=== PATIENT | male | born 1980 | race Caucasian/White ===

== ENCOUNTER 2021-05-09 03:51 | Emergency (ER) | payer OTHER ==
[2021-05-09 04:05] VITALS: BP 162/115; PULSE 70; RESP 20; TEMP 97.9
[2021-05-09] MEDS ORDERED: MORPHINE SULFATE 4 MG/ML SYRINGE IM STA (04:13)
[2021-05-09 04:55] LABS: Basophils % (A) 1 %; Eosinophils # (A) 0.2 k/uL (0-0.7); Eosinophils % (A) 3 %; HCT 39.5 % (39.0-53.0); Lymphocytes # (A) 1.7 k/uL (1.0-4.8); Lymphocytes % (A) 24 %; MCH 28.7 pg (25.0-35.0); MCV 86.9 fL (80.0-100.0); Mean Platelet Volume 6.9; Monocytes # (A) 0.4 k/uL (0-1.0); Monocytes % (A) 5 %; Neutrophils # (A) 4.9 k/uL (1.3-7.7); Neutrophils % (A) 66 %; Platelet Count 352 k/uL (150-450); RBC 4.55 m/uL (4.30-5.90); RDW 14.1 % (11.5-15.5); WBC 7.4 k/uL (3.8-10.6)
[2021-05-09 05:10] LABS: ALT 18 U/L (4-49); AST 33 U/L (17-59); African American GFR (CKD) >90 (>60 ml/min/1.73 sqM); Albumin 4.7 g/dL (3.5-5.0); Alkaline Phosphatase 113 U/L (38-126); Anion Gap 14 mmol/L; Blood Urea Nitrogen 11 mg/dL (9-20); Carbon Dioxide 24 mmol/L (22-30); Chloride 101 mmol/L (98-107); Glucose 139 mg/dL (74-99); Non-African American GFR(CKD) 82 (>60 ml/min/1.73 sqM); Potassium 3.9 mmol/L (3.5-5.1); Sodium 139 mmol/L (137-145); Total Bilirubin 0.5 mg/dL (0.2-1.3); Total Protein 8.1 g/dL (6.3-8.2)
[2021-05-09 05:13] LABS: Appearance,Urine Clear (Clear); Bilirubin,Urine Negative (Negative); Blood,Urine Negative (Negative); Color,Urine Yellow; Glucose,Urine (UA) Negative (Negative); Ketones,Urine Negative (Negative); Leukocyte Esterase,Urine Negative (Negative); Nitrite,Urine Negative (Negative); Protein,Urine Negative (Negative); Specific Gravity,Urine 1.016 (1.001-1.035); Urobilinogen,Urine <2.0 mg/dL (<2.0)
--- NOTE | 2021-05-09 05:13 | CT ---
EXAMINATION TYPE: CT abdomen pelvis wo con DATE OF EXAM: 05/09/2021 COMPARISON: None HISTORY: Abd Pain CT DLP: 922.7 mGycm Automated exposure control for dose reduction was used. Images obtained from the diaphragm to the floor the pelvis with no contrast. The lung bases are clear of consolidation. There is no pleural effusion. Heart is borderline enlarged . There is no pericardial effusion. There is previous gastric bariatric surgery. There is previous cholecystectomy. Liver and spleen are intact. The bile ducts are not dilated. There is no pancreatic mass. There is no adrenal mass. Kidney s show normal size and contour. There is no hydronephrosis. Ureters are not dilated. Bladder distends smoothly. There is no inguinal hernia. There is no free fluid in the pelvis. There is no mesenteric edema. There is no ascites or free air. There is no bowel obstruction. There i s apparent clips from previous appendectomy. The lumbar vertebrae have normal alignment. Posterior elements are intact. Disc spaces are normal. Rafi ny pelvis is intact. The hip joints are intact. IMPRESSION: No acute abnormality of the abdomen and pelvis. No evidence of intestinal hernia. Previous bariatric surgery.
--- NOTE | 2021-05-09 06:33 | ED ---
General Adult HPI - General Chief complaint: Chest Pain Stated complaint: Epigastric/Chest Pain Time Seen by Provider: 05/09/21 06:26 Source: patient, police, RN notes reviewed Mode of arrival: ambulatory - History of Present Illness Initial comments: Patient is a 41-year-old male that presents to the emergency department complaining of epigastric type pain. He notes he does have a history of bariatric surgery in [facility]. Patient does have a history of a Yolanda-en-Y surgery. He notes that last time he had this type of pain here having a hernia and had that surgery. Patient became concerned when he had sharp abdominal pain this evening that woke him up from sleep. Patient notes that he is in moderate amounts of pain and wants us to contact his bariatric surgeon. Patient was otherwise well-appearing in no apparent distress. Patient denied any chest pain shortness of breath headache nausea vomiting diarrhea constipation fever fatigue chills. - Related Data Allergies Allergy/AdvReac Type Severity Reaction Status Date / Time No Known Allergies Allergy Verified 05/09/21 03:58 Review of Systems ROS Statement: Those systems with pertinent positive or pertinent negative responses have been documented in the HPI. ROS Other: All systems not noted in ROS Statement are negative. Past Medical History History of Any Multi-Drug Resistant Organisms: None Reported Past Surgical History: Bariatric Surgery, Hernia Repair Past Psychological History: PTSD Smoking Status: Former smoker Past Alcohol Use History: Occasional Past Drug Use History: None Reported General Exam General appearance: alert, in no apparent distress Head exam: Present: atraumatic, normocephalic, normal inspection Eye exam: Present: normal appearance, PERRL, EOMI. Absent: scleral icterus, conjunctival injection, periorbital swelling ENT exam: Present: normal exam, mucous membranes moist Neck exam: Present: normal inspection Respiratory exam: Present: normal lung sounds bilaterally. Absent: respiratory distress, wheezes, rales, rhonchi, stridor Cardiovascular Exam: Present: regular rate, normal rhythm, normal heart sounds. Absent: systolic murmur, diastolic murmur, rubs, gallop, clicks GI/Abdominal exam: Present: soft, tenderness (Epigastric region), normal bowel sounds. Absent: distended, guarding, rebound, rigid Extremities exam: Present: normal inspection, full ROM, normal capillary refill. Absent: tenderness, pedal edema, joint swelling, calf tenderness Neurological exam: Present: alert, oriented X3 Psychiatric exam: Present: normal affect, normal mood Skin exam: Present: warm, dry, intact, normal color. Absent: rash Course Vital Signs 05/09/21 03:58 Temperature 97.9 F Pulse Rate 70 Respiratory 20 Rate Blood Pressure 162/115 O2 Sat by Pulse 98 Oximetry Medical Decision Making - Medical Decision Making 41-year-old male complaining of epigastric pain. Labs, EKG, 4 mg of morphine, CT of the abdomen and pelvis ordered. Labs: Grossly unremarkable mildly elevated lactic acid 2.5. CT of the abdomen and pelvis is negative for any acute abdominal process. No hernias. EKG is within normal limits. Patient was informed of results and was instructed use second here follow-up with facility medical staff. Case discussed with Dr. Aly. - Lab Data Result diagrams: 05/09/21 04:15 05/09/21 04:16 Lab Results 05/09/21 05/09/21 05/09/21 Range/Units 04:15 04:16 04:16 WBC 7.4 (3.8-10.6) k/uL RBC 4.55 (4.30-5.90) m/uL Hgb 13.0 (13.0-17.5) gm/dL Hct 39.5 (39.0-53.0) % MCV 86.9 (80.0-100.0) fL MCH 28.7 (25.0-35.0) pg MCHC 33.0 (31.0-37.0) g/dL RDW 14.1 (11.5-15.5) % Plt Count 352 (150-450) k/uL MPV 6.9 Neutrophils % 66 % Lymphocytes % 24 % Monocytes % 5 % Eosinophils % 3 % Basophils % 1 % Neutrophils # 4.9 (1.3-7.7) k/uL Lymphocytes # 1.7 (1.0-4.8) k/uL Monocytes # 0.4 (0-1.0) k/uL Eosinophils # 0.2 (0-0.7) k/uL Basophils # 0.0 (0-0.2) k/uL Sodium 139 (137-145) mmol/L Potassium 3.9 (3.5-5.1) mmol/L Chloride 101 (98-107) mmol/L Carbon Dioxide 24 (22-30) mmol/L Anion Gap 14 mmol/L BUN 11 (9-20) mg/dL Creatinine 1.12 (0.66-1.25) mg/dL Est GFR (CKD-EPI)AfAm >90 (>60 ml/min/1.73 sqM) Est GFR (CKD-EPI)NonAf 82 (>60 ml/min/1.73 sqM) Glucose 139 H (74-99) mg/dL Plasma Lactic Acid Rinku (0.7-2.0) mmol/L Calcium 10.0 (8.4-10.2) mg/dL Total Bilirubin 0.5 (0.2-1.3) mg/dL AST 33 (17-59) U/L ALT 18 (4-49) U/L Alkaline Phosphatase 113 (38-126) U/L Troponin I (0.000-0.034) ng/mL Total Protein 8.1 (6.3-8.2) g/dL Albumin 4.7 (3.5-5.0) g/dL Urine Color Yellow Urine Appearance Clear (Clear) Urine pH 6.0 (5.0-8.0) Ur Specific [place] 1.016 (1.001-1.035) Urine Protein Negative (Negative) Urine Glucose (UA) Negative (Negative) Urine Ketones Negative (Negative) Urine Blood Negative (Negative) Urine Nitrite Negative (Negative) Urine Bilirubin Negative (Negative) Urine Urobilinogen <2.0 (<2.0) mg/dL Ur Leukocyte Esterase Negative (Negative) 05/09/21 05/09/21 Range/Units 04:16 04:16 WBC (3.8-10.6) k/uL RBC (4.30-5.90) m/uL Hgb (13.0-17.5) gm/dL Hct (39.0-53.0) % MCV (80.0-100.0) fL MCH (25.0-35.0) pg MCHC (31.0-37.0) g/dL RDW (11.5-15.5) % Plt Count (150-450) k/uL MPV Neutrophils % % Lymphocytes % % Monocytes % % Eosinophils % % Basophils % % Neutrophils # (1.3-7.7) k/uL Lymphocytes # (1.0-4.8) k/uL Monocytes # (0-1.0) k/uL Eosinophils # (0-0.7) k/uL Basophils # (0-0.2) k/uL Sodium (137-145) mmol/L Potassium (3.5-5.1) mmol/L Chloride (98-107) mmol/L Carbon Dioxide (22-30) mmol/L Anion Gap mmol/L BUN (9-20) mg/dL Creatinine (0.66-1.25) mg/dL Est GFR (CKD-EPI)AfAm (>60 ml/min/1.73 sqM) Est GFR (CKD-EPI)NonAf (>60 ml/min/1.73 sqM) Glucose (74-99) mg/dL Plasma Lactic Acid Rinku 2.5 H* (0.7-2.0) mmol/L Calcium (8.4-10.2) mg/dL Total Bilirubin (0.2-1.3) mg/dL AST (17-59) U/L ALT (4-49) U/L Alkaline Phosphatase (38-126) U/L Troponin I <0.012 (0.000-0.034) ng/mL Total Protein (6.3-8.2) g/dL Albumin (3.5-5.0) g/dL Urine Color Urine Appearance (Clear) Urine pH (5.0-8.0) Ur Specific [place] (1.001-1.035) Urine Protein (Negative) Urine Glucose (UA) (Negative) Urine Ketones (Negative) Urine Blood (Negative) Urine Nitrite (Negative) Urine Bilirubin (Negative) Urine Urobilinogen (<2.0) mg/dL Ur Leukocyte Esterase (Negative) - EKG Data -: EKG Interpreted by Ak EKG shows normal: sinus rhythm Rate: normal EKG Comments: Ventricular rate 71 bpm, MS interval 142 ms, QRS duration 90 ms, QTC 436 ms, normal sinus rhythm normal ECG. - Radiology Data Radiology results: report reviewed, image reviewed CT abdomen and pelvis: No acute abnormality of the abdomen and pelvis. No evidence of intestinal hernia. Previous bariatric surgery. Disposition Clinical Impression: Epigastric abdominal pain Disposition: HOME SELF-CARE Condition: Stable Instructions (If sedation given, give patient instructions): Abdominal Pain (ED) Additional Instructions: Please return to the Emergency Department if symptoms worsen or any other concerns. Follow-up with facility medical staff as needed. Try a course of [id number] Grill medication. Is patient prescribed a controlled substance at d/c from ED?: No Referrals: None,Stated [Primary Care Provider] - 1-2 days Time of Disposition: 06:32
[2021-05-09] MEDS ORDERED: PANTOPRAZOLE 40 MG/10 ML VIAL IVP STA (06:46)
== END 2021-05-09 06:56 | disposition home or self-care (01) ==
LOC: EC 03:51
DX: R10.13 Epigastric pain (principal); Z87.891 Personal history of nicotine dependence
CPT/HCPCS: 36415; 93005; 80053; 83605; 84484; 85025; 81003; 74176; 99284; 96374; 96372; J2270; C9113

== ENCOUNTER 2021-05-10 10:32 | Inpatient (IN) | payer OTHER ==
[2021-05-10 10:59] LABS: Glucose,Whole Blood 164 mg/dL (75-99)
--- NOTE | 2021-05-10 11:28 | ED ---
General Adult HPI - General Chief complaint: Abdominal Pain Stated complaint: abdominal pain Time Seen by Provider: 05/10/21 11:08 Source: patient, EMS, RN notes reviewed Mode of arrival: EMS Limitations: no limitations - History of Present Illness Initial comments: 41-year-old incarcerated male presents to the emergency department via EMS for evaluation of generalized abdominal pain and frequent vomiting. Patient was seen at this facility yesterday for the same complaint. States he has a history of a Yolanda-en-Y and has had similar pain in the past with a bowel obstruction. Patient states he has had multiple episodes of vomiting daily for the past 2 days regardless of oral intake. States he had a soft formed bowel movement 2 days ago, but none yesterday or today. States his symptoms were also accompanied by shortness of breath, but he attributes this to pain. Denies fever, chills, chest pain, back pain, constipation, diarrhea, dysuria, or hematuria - Related Data Home Medications Medication Instructions Recorded Confirmed Acetaminophen [Tylenol] 650 mg PO BID PRN 05/10/21 05/10/21 Mag Hydrox/Al Hydrox/Simeth 15 ml PO TID PRN 05/10/21 05/10/21 [Maalox] Meloxicam [Mobic] 15 mg PO HS 05/10/21 05/10/21 Ondansetron HCl [Zofran] 4 mg PO Q8H PRN 05/10/21 05/10/21 Sertraline [Zoloft] 100 mg PO DAILY 05/10/21 05/10/21 Sucralfate [Carafate] 1 gm PO AC-TID 05/10/21 05/10/21 cloNIDine HCL [Catapres] 0.2 mg PO BID 05/10/21 05/10/21 hydrOXYzine pamoate [Vistaril] 50 mg PO BID 05/10/21 05/10/21 hydroCHLOROthiazide 50 mg PO HS 05/10/21 05/10/21 traZODone HCL [Desyrel] 100 mg PO HS 05/10/21 05/10/21 Previous Rx's Medication Instructions Recorded Famotidine [Pepcid] 20 mg PO BID #28 tablet 05/09/21 Allergies Allergy/AdvReac Type Severity Reaction Status Date / Time No Known Allergies Allergy Verified 05/10/21 12:09 Review of Systems ROS Statement: Those systems with pertinent positive or pertinent negative responses have been documented in the HPI. ROS Other: All systems not noted in ROS Statement are negative. Past Medical History Past Medical History: Hypertension History of Any Multi-Drug Resistant Organisms: None Reported Past Surgical History: Bariatric Surgery, Hernia Repair Past Psychological History: PTSD Smoking Status: Former smoker Past Alcohol Use History: Occasional Past Drug Use History: None Reported General Exam Limitations: no limitations General appearance: alert, other (Well-developed, well-nourished male appears moderately uncomfortable. Initial temperature 97.3, recheck 97.5, pulse 61, respirations 18, blood pressure 123/78, pulse ox 97% on room air.) ENT exam: Present: mucous membranes dry Respiratory exam: Present: normal lung sounds bilaterally, other (Shallow respirations). Absent: respiratory distress, wheezes, rales, rhonchi, stridor, chest wall tenderness Cardiovascular Exam: Present: normal rhythm, tachycardia, normal heart sounds GI/Abdominal exam: Present: soft, tenderness (Diffuse abdominal tenderness upon palpation), guarding, normal bowel sounds Neurological exam: Present: alert, oriented X3 Psychiatric exam: Present: anxious, flat affect Skin exam: Present: warm, dry, intact, pallor Course Vital Signs 05/10/21 05/10/21 05/10/21 10:41 13:15 14:27 Temperature 97.3 F L Pulse Rate 61 105 H 111 H Respiratory 18 20 20 Rate Blood Pressure 123/78 105/72 90/70 O2 Sat by Pulse 97 95 97 Oximetry 05/10/21 05/10/21 14:51 16:02 Temperature Pulse Rate 110 H 112 H Respiratory 24 28 H Rate Blood Pressure 112/90 122/89 O2 Sat by Pulse 98 96 Oximetry - Reevaluation(s) Reevaluation #1: 05/10/21 12:[address] Covington about this patient's physical exam findings and lab studies. He will further collaborate in this patient's care. 05/10/21 13:[address] Whitaker, radiology, who is willing to review previous CT findings. Expresses concern for pancreatic biliary obstruction secondary to internal hernia. 05/10/21 13:25: Spoke with Dr. Olivo- this patient requires higher level of care therefore must be transferred. 05/10/21 13:34 Spoke with [facility]; they declined at 1350 05/10/21 14:00 Spoke with [facility] transfer center; they declined at 1436 05/10/21 14:48 [facility] [place]. 05/10/21 14:55 Soke with [facility] system transfer center; they decline due to capacity. 05/10/21 15:[address] results discussed with Dr. Olivo; he is willing to see this patient. 05/10/21 15:35 Vital signs stable. Physical exam findings are unchanged; mild to moderate discomfort at this time. Medical Decision Making - Medical Decision Making 41-year-old male with a past medical history of a Yolanda-en-Y and hypertension presents to the emergency department for a second visit within 24 hours with complaint of diffuse abdominal pain. Upon presentation, patient is ill- appearing. He is pale and cool to touch with diffuse abdominal pain. He is afebrile but tachycardic. Laboratory studies were obtained showing a marked difference between yesterday and today. Currently, patient has a widening anion gap, ANGIE (BUN 24, creatinine 2.66), lactic acidosis(lactic 12.3), elevated troponin (0.108), amylase 861, and lipase 5342. CT of the abdomen and pelvis without contrast showed probable bowel perforation and obstruction. Patient was given a total of 3 L of IV fluids with additional maintenance fluids, Zosyn IV piggyback, along with pain medication and antinausea medicine. Several attempts were made to transfer this patient with no receiving facility. Vital signs remained stable. Dr. Olivo is willing to see this patient. This patient was cared for in collaboration with my attending Dr. Covington. - Lab Data Result diagrams: 05/10/21 11:41 05/10/21 11:41 Lab Results 05/10/21 05/10/21 05/10/21 Range/Units 10:56 11:41 11:41 WBC 4.0 (3.8-10.6) k/uL RBC 6.24 H (4.30-5.90) m/uL Hgb 18.3 H D (13.0-17.5) gm/dL Hct 55.5 H (39.0-53.0) % MCV 89.0 (80.0-100.0) fL MCH 29.4 (25.0-35.0) pg MCHC 33.0 (31.0-37.0) g/dL RDW 14.2 (11.5-15.5) % Plt Count 481 H (150-450) k/uL MPV 7.5 Neutrophils % (Manual) 54 % Band Neuts % (Manual) 17 % Lymphocytes % (Manual) 21 % Monocytes % (Manual) 6 % Metamyelocytes % 4 % Neutrophils # (Manual) 2.80 (1.3-7.7) k/uL Lymphocytes # (Manual) 0.84 L (1.0-4.8) k/uL Monocytes # (Manual) 0.24 (0-1.0) k/uL Metamyelocytes # (Man) 0.16 H (0) k/uL Nucleated RBCs 0 (0-0) /100 WBC Manual Slide Review Performed RBC Morphology Normal PT (9.0-12.0) sec INR (<1.2) APTT (22.0-30.0) sec Sodium 140 (137-145) mmol/L Potassium 3.6 (3.5-5.1) mmol/L Chloride 95 L (98-107) mmol/L Carbon Dioxide 20 L (22-30) mmol/L Anion Gap 25 mmol/L BUN 24 H (9-20) mg/dL Creatinine 2.66 H (0.66-1.25) mg/dL Est GFR (CKD-EPI)AfAm 33 (>60 ml/min/1.73 sqM) Est GFR (CKD-EPI)NonAf 29 (>60 ml/min/1.73 sqM) Glucose 178 H (74-99) mg/dL POC Glucose (mg/dL) 164 H (75-99) mg/dL POC Glu [employer] Justice ID [place] Lactic Ac Sepsis Rflx Plasma Lactic Acid Rinku (0.7-2.0) mmol/L Calcium 10.4 H (8.4-10.2) mg/dL Total Bilirubin 1.3 (0.2-1.3) mg/dL AST 73 H (17-59) U/L ALT 46 (4-49) U/L Alkaline Phosphatase 97 (38-126) U/L Troponin I (0.000-0.034) ng/mL Total Protein 7.7 (6.3-8.2) g/dL Albumin 4.5 (3.5-5.0) g/dL Amylase 861 H* (30-110) U/L Lipase 5342 H (23-300) U/L Coronavirus (PCR) (Not Detectd) 05/10/21 05/10/21 05/10/21 Range/Units 11:41 11:41 11:41 WBC (3.8-10.6) k/uL RBC (4.30-5.90) m/uL Hgb (13.0-17.5) gm/dL Hct (39.0-53.0) % MCV (80.0-100.0) fL MCH (25.0-35.0) pg MCHC (31.0-37.0) g/dL RDW (11.5-15.5) % Plt Count (150-450) k/uL MPV Neutrophils % (Manual) % Band Neuts % (Manual) % Lymphocytes % (Manual) % Monocytes % (Manual) % Metamyelocytes % % Neutrophils # (Manual) (1.3-7.7) k/uL Lymphocytes # (Manual) (1.0-4.8) k/uL Monocytes # (Manual) (0-1.0) k/uL Metamyelocytes # (Man) (0) k/uL Nucleated RBCs (0-0) /100 WBC Manual Slide Review RBC Morphology PT 11.1 (9.0-12.0) sec INR 1.0 (<1.2) APTT 23.1 (22.0-30.0) sec Sodium (137-145) mmol/L Potassium (3.5-5.1) mmol/L Chloride (98-107) mmol/L Carbon Dioxide (22-30) mmol/L Anion Gap mmol/L BUN (9-20) mg/dL Creatinine (0.66-1.25) mg/dL Est GFR (CKD-EPI)AfAm (>60 ml/min/1.73 sqM) Est GFR (CKD-EPI)NonAf (>60 ml/min/1.73 sqM) Glucose (74-99) mg/dL POC Glucose (mg/dL) (75-99) mg/dL POC Glu Trial [facility] Justice ID Lactic Ac Sepsis Rflx Plasma Lactic Acid Rinku 12.3 H* (0.7-2.0) mmol/L Calcium (8.4-10.2) mg/dL Total Bilirubin (0.2-1.3) mg/dL AST (17-59) U/L ALT (4-49) U/L Alkaline Phosphatase (38-126) U/L Troponin I 0.108 H* (0.000-0.034) ng/mL Total Protein (6.3-8.2) g/dL Albumin (3.5-5.0) g/dL Amylase (30-110) U/L Lipase (23-300) U/L Coronavirus (PCR) (Not Detectd) 05/10/21 05/10/21 Range/Units 11:41 13:47 WBC (3.8-10.6) k/uL RBC (4.30-5.90) m/uL Hgb (13.0-17.5) gm/dL Hct (39.0-53.0) % MCV (80.0-100.0) fL MCH (25.0-35.0) pg MCHC (31.0-37.0) g/dL RDW (11.5-15.5) % Plt Count (150-450) k/uL MPV Neutrophils % (Manual) % Band Neuts % (Manual) % Lymphocytes % (Manual) % Monocytes % (Manual) % Metamyelocytes % % Neutrophils # (Manual) (1.3-7.7) k/uL Lymphocytes # (Manual) (1.0-4.8) k/uL Monocytes # (Manual) (0-1.0) k/uL Metamyelocytes # (Man) (0) k/uL Nucleated RBCs (0-0) /100 WBC Manual Slide Review RBC Morphology PT (9.0-12.0) sec INR (<1.2) APTT (22.0-30.0) sec Sodium (137-145) mmol/L Potassium (3.5-5.1) mmol/L Chloride (98-107) mmol/L Carbon Dioxide (22-30) mmol/L Anion Gap mmol/L BUN (9-20) mg/dL Creatinine (0.66-1.25) mg/dL Est GFR (CKD-EPI)AfAm (>60 ml/min/1.73 sqM) Est GFR (CKD-EPI)NonAf (>60 ml/min/1.73 sqM) Glucose (74-99) mg/dL POC Glucose (mg/dL) (75-99) mg/dL POC Glu Trial [facility] Justice ID Lactic Ac Sepsis Rflx Y Plasma Lactic Acid Rinku (0.7-2.0) mmol/L Calcium (8.4-10.2) mg/dL Total Bilirubin (0.2-1.3) mg/dL AST (17-59) U/L ALT (4-49) U/L Alkaline Phosphatase (38-126) U/L Troponin I (0.000-0.034) ng/mL Total Protein (6.3-8.2) g/dL Albumin (3.5-5.0) g/dL Amylase (30-110) U/L Lipase (23-300) U/L Coronavirus (PCR) Not Detected (Not Detectd) - EKG Data EKG shows normal: sinus rhythm Rate: tachycardia EKG Comments: Chest x-ray was obtained at 1057 and shows sinus tachycardia and possible left atrial enlargement. Ventricular rate 129, SD interval 126, QRS duration, QT/QTC 310/454. Interpretation borderline ECG. - Radiology Data Radiology results: report reviewed, image reviewed Two-view chest x-ray was obtained. Report was reviewed in its entirety. Impression per Dr. Mora shows low lung volumes with left greater than right; bilateral linear scarring and/or atelectasis. KUB x-ray was obtained. Report was reviewed in its entirety. Impression per Dr. Mora is overall nonspecific, but favor nonobstructive bowel gas pattern. Surgical changes to follow redemonstrated. New small to tiny left pleural effusion noted. CT of the abdomen and pelvis without contrast was obtained due to patient's decreased GFR. Report was reviewed and is entirety. Impression per Dr. Hays is pneumoperitoneum, interval development of free fluid within the abdomen consistent with probable bowel perforation and obstruction. Disposition Clinical Impression: Perforated bowel, Lactic acidosis, Acute kidney injury, Bowel obstruction Disposition: ADMITTED IP TO THIS HOSP Condition: Serious Decision Date: 05/10/21 Decision Time: 15:59
[2021-05-10] MEDS ORDERED: SODIUM CHLORIDE 0.9% 1,000 ML IV STA ×4 (11:37→16:06)
[2021-05-10] MEDS ORDERED: ONDANSETRON 4 MG/2 ML VIAL IVP STA ×2 (11:37→16:05)
[2021-05-10] MEDS ORDERED: MORPHINE SULFATE 4 MG/ML SYRINGE IV STA (11:37)
--- NOTE | 2021-05-10 12:10 | XR ---
EXAMINATION TYPE: XR chest 2V DATE OF EXAM: 05/10/2021 COMPARISON: NONE HISTORY: Shortness of breath. TECHNIQUE: Frontal and lateral views of the chest are obtained. FINDINGS: Low lung volumes with left greater than right bibasilar linear scarring and/or atelectasis . No pleural effusion or pneumothorax seen bilaterally. The cardiac silhouette size is difficult to assess likely upper limits of normal. The osseous structures are intact. IMPRESSION: Low lung volumes with left greater than right bilateral linear scarring and/or atelectas is.
--- NOTE | 2021-05-10 12:13 | XR ---
EXAMINATION TYPE: XR KUB DATE OF EXAM: 05/10/2021 11:59 AM CLINICAL HISTORY: Pain after injury. TECHNIQUE: Two Upright KUB images of the abdomen are obtained. COMPARISON: CT abdomen and pelvis from yesterday. FINDINGS: Scattered gas is seen in non-distended small bowel loops. Gas and fecal material is seen in non-distended colon. A few scattered air-fluid levels redemonstrated, nonspecific finding greatest i n the lower abdomen . Mild to moderate diffuse colonic fecal prominence redemonstrated. Cholecystecto my clips are redemonstrated. Surgical sutures at the gastric region extending into left midabdomen ag ain seen. Multiple tiny left pleural effusion on current study now present with associated atelectasi s and/or developing infiltrate. No free air. Osseous structures are intact. IMPRESSION: Overall nonspecific but favor nonobstructive bowel gas pattern. Surgical changes to bowel redemonstra jerri. New small to tiny left pleural effusion noted.
[2021-05-10 12:17] LABS: MCH 29.4 pg (25.0-35.0); Mean Platelet Volume 7.5; Platelet Count 481 k/uL (150-450); RBC 6.24 m/uL (4.30-5.90); RDW 14.2 % (11.5-15.5)
[2021-05-10 12:18] LABS: HCT 55.5 % (39.0-53.0)
[2021-05-10 12:19] LABS: HGB 18.3 gm/dL (13.0-17.5)
[2021-05-10 12:25] LABS: Partial Thromboplastin Time 23.1 sec (22.0-30.0); Prothrombin Time 11.1 sec (9.0-12.0)
[2021-05-10 12:34] LABS: Albumin 4.5 g/dL (3.5-5.0); Calcium 10.4 mg/dL (8.4-10.2); Potassium 3.6 mmol/L (3.5-5.1); Total Bilirubin 1.3 mg/dL (0.2-1.3); Total Protein 7.7 g/dL (6.3-8.2)
[2021-05-10 13:06] LABS: Band Neutrophils % 17 %; Lymphocytes # (M) 0.84 k/uL (1.0-4.8); Metamyelocytes # (M) 0.16 k/uL (0); Metamyelocytes % 4 %; Monocytes # (M) 0.24 k/uL (0-1.0); Neutrophils % (M) 54 %; Nucleated Red Blood Cells 0 /100 WBC (0-0); Total Cells Counted 200
[2021-05-10] MEDS ORDERED: PIPERACILLIN-TAZOBACTAM 3.375 GM in SODIUM CHLORIDE 0.9% 100 ML IVPB STA (13:18)
[2021-05-10] MEDS ORDERED: MORPHINE SULFATE 2 MG/ML SYRINGE IVP ONE (13:30)
--- NOTE | 2021-05-10 15:08 | CT ---
EXAMINATION TYPE: CT abdomen pelvis wo con DATE OF EXAM: 05/10/2021 COMPARISON: CT 05/09/2021 HISTORY: Mid abdominal pain. CT DLP: 1052.4 mGycm Automated exposure control for dose reduction was used. TECHNIQUE: Helical acquisition of images from the lung bases through the pelvis. FINDINGS: Lack of contrast could compromise sensitivity. There has been interval development of pneumoperitoneum. LUNG BASES: There is some basilar atelectatic change at the posterior lung bases, minimal pleural eff usion may be present on the right. AORTA: No significant abnormality is appreciataed. LIVER/GB: No significant abnormality is appreciated. PANCREAS: No significant abnormality is seen. SPLEEN: No significant abnormality is seen. ADRENALS: No significant abnormality is seen. KIDNEYS: No significant abnormality is seen. REPRODUCTIVE ORGANS: No significant abnormality is seen. URINARY BLADDER: No significant abnormality is seen. BOWEL: There is interval increase in distention of the duodenum and excluded stomach with fluid atte nuation present. Inflammatory changes are present within the mesenteric fat. The redundant course of small bowel loops in the left upper quadrant is again noted, patient is post gastric bypass with Yolanda -en-Y. FREE AIR: Present and developed in the interval. ASCITES: Ascites has developed in the interval. PELVIC ADENOPATHY: None visualized. RETROPERITONEAL ADENOPATHY: No Retroperitoneal Adenopathy visible. OSSEOUS STRUCTURES: No significant abnormality is seen. IMPRESSION: PNEUMOPERITONEUM, INTERVAL DEVELOPMENT OF FREE FLUID WITHIN THE ABDOMEN CONSISTENT WITH PROBABLE ARCADIO L PERFORATION AND OBSTRUCTION PREVIOUSLY REPORTED, REPORT RELAYED TO DR. MCGRATH AT THE TIME OF IN TERPRETATION BY PHONE.
[2021-05-10] MEDS ORDERED: NALOXONE 0.4 MG/ML 1 ML VIAL IV PRN ×2 (16:00→18:38)
[2021-05-10] MEDS: MORPHINE SULFATE 2 MG/ML SYRINGE IV PRN ×3 (16:25→23:53)
--- NOTE | 2021-05-10 16:46 | P.GSHP ---
History of Present Illness H&P Date: 05/10/21 Chief Complaint: Severe abdominal pain Is a 41-year-old male who has a several day history of severe abdominal pain. Patient states he was seen in the emergency room yesterday for similar complaints of abdominal pain. He states that he has a previous history of gastric bypass and had a similar complaints of pain when he had an internal hernia. Patient was seen in the emergency room yesterday by the emergency room physician. He was [facility] to [facility] living yesterday. Patient had increased pain he presented back to the emergency room today. Patient had repeat CAT scan shows evidence of bowel perforation and possible internal hernia. Past Medical History Past Medical History: Hypertension History of Any Multi-Drug Resistant Organisms: None Reported Past Surgical History: Bariatric Surgery, Hernia Repair Past Psychological History: PTSD Smoking Status: Former smoker Past Alcohol Use History: Occasional Past Drug Use History: None Reported Medications and Allergies Home Medications Medication Instructions Recorded Confirmed Type Famotidine [Pepcid] 20 mg PO BID #28 tablet 05/09/21 05/10/21 Rx Acetaminophen [Tylenol] 650 mg PO BID PRN 05/10/21 05/10/21 History Mag Hydrox/Al Hydrox/Simeth 15 ml PO TID PRN 05/10/21 05/10/21 History [Maalox] Meloxicam [Mobic] 15 mg PO HS 05/10/21 05/10/21 History Ondansetron HCl [Zofran] 4 mg PO Q8H PRN 05/10/21 05/10/21 History Sertraline [Zoloft] 100 mg PO DAILY 05/10/21 05/10/21 History Sucralfate [Carafate] 1 gm PO AC-TID 05/10/21 05/10/21 History cloNIDine HCL [Catapres] 0.2 mg PO BID 05/10/21 05/10/21 History hydrOXYzine pamoate [Vistaril] 50 mg PO BID 05/10/21 05/10/21 History hydroCHLOROthiazide 50 mg PO HS 05/10/21 05/10/21 History traZODone HCL [Desyrel] 100 mg PO HS 05/10/21 05/10/21 History Allergies Allergy/AdvReac Type Severity Reaction Status Date / Time No Known Allergies Allergy Verified 05/10/21 12:09 Surgical - Exam Vital Signs Temp Pulse Resp BP Pulse Ox 97.3 F L 61 18 123/78 97 05/10/21 10:41 05/10/21 10:41 05/10/21 10:41 05/10/21 10:41 05/10/21 10:41 - General well developed, well nourished, moderate distress, severe pain - Eyes PERRL - ENT normal pinna, normal nares - Neck no masses - Respiratory normal expansion - Cardiovascular Rhythm: regular - Abdomen Distended. Diffusely tender throughout. Positive peritoneal signs Results - Labs 05/10/21 11:41 05/10/21 11:41 Abnormal Lab Results - Last 24 Hours (Table) 05/10/21 05/10/21 05/10/21 Range/Units 10:56 11:41 11:41 RBC 6.24 H (4.30-5.90) m/uL Hgb 18.3 H D (13.0-17.5) gm/dL Hct 55.5 H (39.0-53.0) % Plt Count 481 H (150-450) k/uL Lymphocytes # (Manual) 0.84 L (1.0-4.8) k/uL Metamyelocytes # (Man) 0.16 H (0) k/uL Chloride 95 L (98-107) mmol/L Carbon Dioxide 20 L (22-30) mmol/L BUN 24 H (9-20) mg/dL Creatinine 2.66 H (0.66-1.25) mg/dL Glucose 178 H (74-99) mg/dL POC Glucose (mg/dL) 164 H (75-99) mg/dL Plasma Lactic Acid Rinku (0.7-2.0) mmol/L Calcium 10.4 H (8.4-10.2) mg/dL AST 73 H (17-59) U/L Troponin I (0.000-0.034) ng/mL Amylase 861 H* (30-110) U/L Lipase 5342 H (23-300) U/L 05/10/21 05/10/21 05/10/21 Range/Units 11:41 11:41 16:00 RBC (4.30-5.90) m/uL Hgb (13.0-17.5) gm/dL Hct (39.0-53.0) % Plt Count (150-450) k/uL Lymphocytes # (Manual) (1.0-4.8) k/uL Metamyelocytes # (Man) (0) k/uL Chloride (98-107) mmol/L Carbon Dioxide (22-30) mmol/L BUN (9-20) mg/dL Creatinine (0.66-1.25) mg/dL Glucose (74-99) mg/dL POC Glucose (mg/dL) (75-99) mg/dL Plasma Lactic Acid Rinku 12.3 H* 6.1 H* (0.7-2.0) mmol/L Calcium (8.4-10.2) mg/dL AST (17-59) U/L Troponin I 0.108 H* (0.000-0.034) ng/mL Amylase (30-110) U/L Lipase (23-300) U/L Diabetes panel 05/10/21 Range/Units 11:41 Sodium 140 (137-145) mmol/L Potassium 3.6 (3.5-5.1) mmol/L Chloride 95 L (98-107) mmol/L Carbon Dioxide 20 L (22-30) mmol/L BUN 24 H (9-20) mg/dL Creatinine 2.66 H (0.66-1.25) mg/dL Glucose 178 H (74-99) mg/dL Calcium 10.4 H (8.4-10.2) mg/dL AST 73 H (17-59) U/L ALT 46 (4-49) U/L Alkaline Phosphatase 97 (38-126) U/L Total Protein 7.7 (6.3-8.2) g/dL Albumin 4.5 (3.5-5.0) g/dL Calcium panel 05/10/21 Range/Units 11:41 Calcium 10.4 H (8.4-10.2) mg/dL Albumin 4.5 (3.5-5.0) g/dL Pituitary panel 05/10/21 Range/Units 11:41 Sodium 140 (137-145) mmol/L Potassium 3.6 (3.5-5.1) mmol/L Chloride 95 L (98-107) mmol/L Carbon Dioxide 20 L (22-30) mmol/L BUN 24 H (9-20) mg/dL Creatinine 2.66 H (0.66-1.25) mg/dL Glucose 178 H (74-99) mg/dL Calcium 10.4 H (8.4-10.2) mg/dL Adrenal panel 05/10/21 Range/Units 11:41 Sodium 140 (137-145) mmol/L Potassium 3.6 (3.5-5.1) mmol/L Chloride 95 L (98-107) mmol/L Carbon Dioxide 20 L (22-30) mmol/L BUN 24 H (9-20) mg/dL Creatinine 2.66 H (0.66-1.25) mg/dL Glucose 178 H (74-99) mg/dL Calcium 10.4 H (8.4-10.2) mg/dL Total Bilirubin 1.3 (0.2-1.3) mg/dL AST 73 H (17-59) U/L ALT 46 (4-49) U/L Alkaline Phosphatase 97 (38-126) U/L Total Protein 7.7 (6.3-8.2) g/dL Albumin 4.5 (3.5-5.0) g/dL - Imaging CT scan - pelvis: report reviewed (Pneumoperitoneum with free fluid in the peritoneal cavity. Suspicious for bowel perforation) Assessment and Plan Assessment: Acute abdomen with bowel perforation. Patient will undergo exploratory laparotomy urgently.
[2021-05-10] MEDS ORDERED: METHYLENE BLUE 10 MG/ML (10 ML VIAL) ONE (16:56)
[2021-05-10] MEDS ORDERED: ROCURONIUM 10 MG/ML (5 ML VIAL) IV ONE (16:56)
[2021-05-10] MEDS ORDERED: IV FLUID CONTINUATION 1,000 ML IV ONE (16:56)
[2021-05-10] MEDS ORDERED: LIDOCAINE 1% INJ 10MG/ML (20 ML MDV) ONE (16:56)
[2021-05-10] MEDS ORDERED: PROPOFOL 10 MG/ML 20 ML VIAL IV ONE (16:56)
[2021-05-10] MEDS ORDERED: SUCCINYLCHOLINE CHLORIDE 100 MG/5 ML SYR IV ONE (16:56)
[2021-05-10] MEDS ORDERED: fentaNYL (PF) 50 MCG/ML 2 ML AMP ONE (16:56)
[2021-05-10] MEDS ORDERED: PHENYLEPHRINE-0.9% NACL SYG 1,000 MCG/10 ML SYRINGE ONE (16:56)
[2021-05-10] MEDS ORDERED: MIDAZOLAM 2 MG/2 ML VIAL ONE (16:56)
[2021-05-10] MEDS ORDERED: LACTATED RINGERS 1,000 ML IV ONE ×5 (17:05→18:38)
[2021-05-10] MEDS ORDERED: SODIUM CHLORIDE 0.9% 100 ML with ceFAZolin 2,000 MG IV ONE ×2 (17:20)
--- NOTE | 2021-05-10 18:38 | P.OP ---
Date of Procedure: 05/10/21 Preoperative Diagnosis: Internal hernia Perforated viscus Postoperative Diagnosis: Internal hernia with obstruction Necrotic stomach Procedure(s) Performed: Repair of ventral hernia Partial gastrectomy Anesthesia: BARNEY Surgeon: Kaz Olivo Estimated Blood Loss (ml): 50 Pathology: other (Chronic stomach) Condition: critical Disposition: ICU Description of Procedure: The patient's placed on the operative table in the supine position. He received general endotracheal tube anesthesia. His abdomen was prepped and draped usual sterile fashion. The abdomen was entered through a midline incision. Upon entering the abdomen. Cavity there was approximately 1 L of bilious fluid aspirated the patient had a obvious bowel obstruction. The gastric remnant was grossly dilated and there is evidence of necrosis. The small bowel was run. The bowel was dilated all the way down to the level of the distal terminal ileum. There appeared to be an internal hernia at this area due to adhesive band. The adhesive band was lysed and then the bowel was run. There was both dilatation of the ascending and afferent limb of the Yolanda-en-Y gastric bypass. The D5/stomach was grossly dilated. There was necrosis of the proximal the functional stomach. At this point a partial gastrectomy performed. The stomach was dissected. The lesser curvature was dissected and then the stapler was placed across the antrum. The GI staplers and fired. And then using the Enseal device the lesser curvature stomach was divided. And then the defunctionalized stomach which was necrotic was sent to pathology. At this point the [employer] placed an oral gastric tube into the proximal gastric pouch. This was inflated with 250 mL of methylene blue normal saline. There is known to any obstruction. At this point the abdomen was irrigated with 3 L normal saline. A NOAH drain was placed across the gastrectomy site. The fascia was closed with looped #1 PDS suture. The skin was closed with ariel. Several Telfa micheal were placed into the incision. Patient tolerated procedure well. He was in critical condition and was sent back to the ICU on the ventilator.
[2021-05-10] MEDS ORDERED: DEXTROSE 50% SYRINGE 50 ML IVP ONE (19:01)
[2021-05-10 19:03] LABS: Glucose,Whole Blood 56 mg/dL (75-99)
--- NOTE | 2021-05-10 19:39 | XR ---
EXAMINATION TYPE: XR chest 1V portable DATE OF EXAM: 05/10/2021 COMPARISON: 05/10/2021 HISTORY: Short of breath TECHNIQUE: 2 views FINDINGS: There is almost complete opacification left hemithorax. Endotracheal tube is in the right m ainstem bronchus and extending 3.5 cm past the carla. The right lung is clear. There is nasogastric tube in the stomach. IMPRESSION: There is malposition of the endotracheal tube and should be pulled back 7 cm. There is al most complete atelectasis of the left lung which is a change compared to exam earlier today.
[2021-05-10 19:42] LABS: Glucose,Whole Blood 151 mg/dL (75-99)
[2021-05-10] MEDS: FLUCONAZOLE IN NACL,ISO-OSM 400 MG in SALINE 1 200ML.BAG IVPB SCH (19:42)
--- NOTE | 2021-05-10 20:52 | XR ---
EXAMINATION TYPE: XR chest 1V portable DATE OF EXAM: 05/10/2021 COMPARISON: 05/10/2021 HISTORY: Check tube placement TECHNIQUE: FINDINGS: Endotracheal tube is 2 cm from the carla. There is some atelectasis and increased density left lower lobe. Right lung is clear. There are chest leads. There is nasogastric tube in the stomach . IMPRESSION: There is improved aeration of the left lung compared to recent exam. There is persistent left lower lobe atelectasis.
[2021-05-10] MEDS: NOREPINEPHRINE 4 MG in SODIUM CHLORIDE 0.9% 250 ML IV SCH (21:37)
[2021-05-10 21:59] LABS: Glucose,Whole Blood 112 mg/dL (75-99)
[2021-05-10 22:22] LABS: Glucose,Whole Blood 121 mg/dL (75-99)
[2021-05-11 00:04] LABS: Glucose,Whole Blood 87 mg/dL (75-99)
[2021-05-11 01:08] LABS: Glucose,Whole Blood 78 mg/dL (75-99)
[2021-05-11] MEDS ORDERED: DEXTROSE 50% SYRINGE 50 ML IVP ONE (01:08)
[2021-05-11] MEDS ORDERED: DEXTROSE 50% SYRINGE 50 ML IVP STA ×2 (01:16→02:58)
[2021-05-11] MEDS: MORPHINE SULFATE 2 MG/ML SYRINGE IV PRN (01:23)
[2021-05-11 01:47] LABS: Glucose,Whole Blood 104 mg/dL (75-99)
[2021-05-11] MEDS: HYDROmorphone 1 MG/ML 1 ML SYRINGE IVP PRN ×5 (02:24→22:54)
[2021-05-11 02:37] LABS: Glucose,Whole Blood 76 mg/dL (75-99)
[2021-05-11 03:01] LABS: Appearance,Urine Cloudy (Clear); Bacteria,Urine Rare /hpf; Bilirubin,Urine Negative (Negative); Blood,Urine Small (Negative); Cellular Casts,Urine 3 /lpf (0); Color,Urine Light Green; Glucose,Urine (UA) 1+ (Negative); Granular Casts,Urine 13 /lpf (0); Hyaline Casts,Urine 5 /lpf (0-2); Ketones,Urine Negative (Negative); Leukocyte Esterase,Urine Negative (Negative); Mucus,Urine Rare /hpf; Nitrite,Urine Negative (Negative); Protein,Urine 1+ (Negative); RBC,Urine 1 /hpf (0-5); Specific Gravity,Urine 1.027 (1.001-1.035); Squamous Epithelial Cell,Urine 1 /hpf (0-4); WBC,Urine 1 /hpf (0-5)
[2021-05-11 03:02] LABS: Glucose,Whole Blood 152 mg/dL (75-99)
[2021-05-11 04:05] LABS: Glucose,Whole Blood 111 mg/dL (75-99)
[2021-05-11] MEDS: LACTATED RINGERS 1,000 ML IV SCH ×3 (06:00→18:04)
[2021-05-11 06:13] LABS: HCT 48.2 % (39.0-53.0); HGB 15.9 gm/dL (13.0-17.5); MCH 29.8 pg (25.0-35.0); MCHC 33.1 g/dL (31.0-37.0); MCV 90.1 fL (80.0-100.0); Mean Platelet Volume 8.1; Platelet Count 324 k/uL (150-450); RBC 5.35 m/uL (4.30-5.90); RDW 14.4 % (11.5-15.5); WBC 10.7 k/uL (3.8-10.6)
[2021-05-11 06:13] LABS: ABG PCO2 40 mmHg (35-45); ABG PH 7.33 (7.35-7.45); ABG PO2 119 mmHg (83-108); Allen Test Performed? Yes
[2021-05-11 06:14] LABS: ABG Base Excess -4.9 mmol/L; ABG HCO3 21 mmol/L (21-25); ABG TCO2 -22 mmol/L (19-24)
[2021-05-11 06:16] LABS: Glucose,Whole Blood 93 mg/dL (75-99)
[2021-05-11 07:53] LABS: Band Neutrophils % 49 %; Eosinophils # (M) 0.11 k/uL (0-0.7); Metamyelocytes # (M) 0.11 k/uL (0); Metamyelocytes % 1 %; Monocytes # (M) 0.32 k/uL (0-1.0); Neutrophils % (M) 34 %; Nucleated Red Blood Cells 0 /100 WBC (0-0); Total Cells Counted 200
[2021-05-11 07:55] LABS: Anisocytosis (M) Present; Poikilocytosis (M) Present
[2021-05-11] MEDS: NOREPINEPHRINE 4 MG in SODIUM CHLORIDE 0.9% 250 ML IV SCH ×2 (08:21→17:21)
[2021-05-11] MEDS: ENOXAPARIN 40 MG/0.4 ML SYRINGE SQ SCH (08:21)
[2021-05-11 08:38] LABS: Albumin 2.4 g/dL (3.5-5.0); Calcium 7.7 mg/dL (8.4-10.2)
[2021-05-11 08:41] LABS: Potassium 5.8 mmol/L (3.5-5.1)
[2021-05-11] MEDS ORDERED: CISATRACURIUM 2 MG/ML 5 ML VIAL IV ONE ×3 (09:00→09:47)
[2021-05-11] MEDS ORDERED: SODIUM CHLORIDE 0.9% 1,000 ML IV ONE ×2 (09:46→09:56)
[2021-05-11] MEDS ORDERED: SODIUM CHLORIDE 0.9% 2,000 ML IV ONE (09:56)
[2021-05-11] MEDS: metroNIDAZOLE-NS PMX 500 MG in SALINE 1 100ML.BAG IVPB SCH ×3 (10:17→23:14)
[2021-05-11] MEDS: PIPERACILLIN-TAZOBACTAM 3.375 GM in SODIUM CHLORIDE 0.9% 100 ML IVPB SCH ×3 (10:17→23:13)
--- NOTE | 2021-05-11 10:30 | XR ---
EXAMINATION TYPE: XR chest 1V portable DATE OF EXAM: 05/11/2021 COMPARISON: 05/11/2021 INDICATION: Line placement TECHNIQUE: Single frontal view of the chest is obtained. FINDINGS: The heart size is mildly prominent. The pulmonary vasculature is normal. Small left pleural effusion is present. Endotracheal tube tip is above the carla. Nasogastric tube transverses the thorax. Left central veno us catheter is present with the tip within the deep right atrium. IMPRESSION: 1. Small left pleural effusion. 2. Lines and catheters discussed above. 3. Left central venous catheter placement with the tip in the deep right atrium. No pneumothorax.
--- NOTE | 2021-05-11 11:25 | XR ---
EXAMINATION TYPE: XR chest 1V portable DATE OF EXAM: 05/11/2021 CLINICAL HISTORY: Difficulty breathing progress study. Emergency abdominal surgery for bowel perfora tion yesterday. TECHNIQUE: Single AP portable semiupright view of the chest is obtained. COMPARISON: Chest x-ray from earlier today and older studies FINDINGS: Stable endotracheal and orogastric tubes. Persistent left upper quadrant percutaneous drai nage catheter with adjacent surgical clips. Additional surgical clips epigastric region just below di aphragm. Cholecystectomy clips are redemonstrated. Left basilar consolidation and pleural effusion redemonstrated. Right lung remains clear. Cardiac melissa houette size is stable and within normal limits. Osseous structures are intact. IMPRESSION: Small left pleural effusion with left basilar consolidation and/or atelectasis redemonstr ated. No significant change from most recent x-ray earlier today.
[2021-05-11 12:07] LABS: Glucose,Whole Blood 108 mg/dL (75-99)
--- NOTE | 2021-05-11 12:07 | P.CNPUL ---
History of Present Illness Consult date: 05/11/21 Requesting physician: Kaz Olivo Reason for consult: other Chief complaint: Abdominal pain. History of present illness: Pulmonary/critical care consult dated 05/11/2021. A 41-year-old incarcerated male, seen in the emergency department on May 10, for abdominal pain, and vomiting. The patient was seen in the emergency department the day before, evaluated, and [facility] the [facility]. The patient apparently had a gastric bypass a couple years ago, and [place]. Anyway, the patient was evaluated again, and found to have a necrotic stomach, surgery, including a exploratory laparotomy, gastrectomy, and repair of internal hernia. The patient was returned back to the intensive care unit, on the mechanical ventilator. He is on the volume assist control mode, rate of 20, tidal volume 500, FiO2 50%, and PEEP of 5. Blood gases show pO2 119, pCO2 40, and a pH is 7.33. He is currently postop day #1. He is getting lactated Ringer's at 150 mL an hour, norepinephrine at 8 mcg/m, and propofol 50 mcg/kg/m. He is currently not on any antibiotics. We start Zosyn and Flagyl. In addition, we place a right brachial heart line, and a left internal jugular triple-lumen catheter. Apparently, the patient's only past medical history includes hypertension, the gastric bypass surgery, and hernia repair. White count 10.7, hemoglobin 15.9, hematocrit 48.2, platelet count 324,000. Sodium 142, potassium 5.8, chlorides 112, CO2 19, anion gap 11, BUN 38, and creatinine 2.32. AST 160, with an ALT of 83. Lipase is 521. Chest x-ray shows consolidation and/or effusion/atelectasis, at the left lung base. Review of Systems REVIEW OF SYSTEMS: A review of systems cannot be obtained, as the patient is currently intubated. CONSTITUTIONAL: [Negative.] NEUROLOGIC: [ Negative.] HEENT: [ Negative.] CARDIAC: [Negative.] PULMONARY: [Negative.] GI: Apparently when he presented to the emergency room, on the 06 June, he was complaining of abdominal pain, and vomiting. : [Negative.] RHEUMATOLOGIC: [ Negative.] IMMUNOLOGIC: [ Negative.] ENDOCRINE: [Negative. ] DERMATOLOGIC: [Negative.] Past Medical History Past Medical History: Hypertension History of Any Multi-Drug Resistant Organisms: None Reported Past Surgical History: Bariatric Surgery, Hernia Repair Past Psychological History: PTSD Smoking Status: Former smoker Past Alcohol Use History: Occasional Past Drug Use History: None Reported Medications and Allergies Home Medications Medication Instructions Recorded Confirmed Type Famotidine [Pepcid] 20 mg PO BID #28 tablet 05/09/21 05/10/21 Rx Acetaminophen [Tylenol] 650 mg PO BID PRN 05/10/21 05/10/21 History Mag Hydrox/Al Hydrox/Simeth 15 ml PO TID PRN 05/10/21 05/10/21 History [Maalox] Meloxicam [Mobic] 15 mg PO HS 05/10/21 05/10/21 History Ondansetron HCl [Zofran] 4 mg PO Q8H PRN 05/10/21 05/10/21 History Sertraline [Zoloft] 100 mg PO DAILY 05/10/21 05/10/21 History Sucralfate [Carafate] 1 gm PO AC-TID 05/10/21 05/10/21 History cloNIDine HCL [Catapres] 0.2 mg PO BID 05/10/21 05/10/21 History hydrOXYzine pamoate [Vistaril] 50 mg PO BID 05/10/21 05/10/21 History hydroCHLOROthiazide 50 mg PO HS 05/10/21 05/10/21 History traZODone HCL [Desyrel] 100 mg PO HS 05/10/21 05/10/21 History Allergies Allergy/AdvReac Type Severity Reaction Status Date / Time No Known Allergies Allergy Verified 05/10/21 12:09 Physical Exam Osteopathic Statement: *. No significant issues noted on an osteopathic structural exam other than those noted in the History and Physical/Consult. Vitals: Vital Signs Temp Pulse Resp BP Pulse Ox 05/11/21 11:00 114 H 20 98 05/11/21 10:45 115 H 20 97 05/11/21 10:30 117 H 20 96 05/11/21 10:15 122 H 20 97 05/11/21 10:00 126 H 20 91/74 97 05/11/21 09:45 125 H 20 78 L 05/11/21 09:30 129 H 20 89/63 97 05/11/21 09:15 129 H 20 91/62 98 05/11/21 09:00 129 H 21 103/74 97 05/11/21 08:45 123 H 25 H 105/74 100 05/11/21 08:30 123 H 21 109/77 100 05/11/21 08:15 123 H 20 112/80 100 05/11/21 08:00 99 F 120 H 24 109/75 100 05/11/21 07:45 122 H 21 96/77 100 05/11/21 07:30 120 H 21 103/68 100 05/11/21 07:00 121 H 20 85/70 100 05/11/21 06:45 124 H 20 93/65 100 05/11/21 06:30 123 H 21 95/70 100 05/11/21 06:15 123 H 20 93/83 100 05/11/21 06:00 120 H 21 90/78 100 05/11/21 05:45 118 H 20 103/69 100 05/11/21 05:30 124 H 21 95/75 100 05/11/21 05:15 121 H 10 L 83/66 99 05/11/21 05:00 123 H 20 96/63 99 05/11/21 04:45 123 H 20 93/61 99 05/11/21 04:30 124 H 20 81/66 99 05/11/21 04:15 123 H 20 92/59 99 05/11/21 04:00 97.9 F 122 H 20 95/72 100 05/11/21 03:45 123 H 20 77/62 100 05/11/21 03:30 124 H 20 80/63 100 05/11/21 03:15 124 H 20 78/63 100 05/11/21 03:00 122 H 20 81/64 100 05/11/21 02:45 120 H 21 85/59 100 05/11/21 02:30 123 H 20 90/69 100 05/11/21 02:15 124 H 24 91/69 100 05/11/21 02:00 122 H 25 H 90/66 100 05/11/21 01:45 121 H 25 H 93/68 100 05/11/21 01:30 120 H 24 94/66 100 05/11/21 01:15 113 H 23 92/68 100 05/11/21 01:00 123 H 25 H 92/74 100 05/11/21 00:45 123 H 25 H 98/59 100 05/11/21 00:41 124 H 25 H 98/59 100 05/11/21 00:30 124 H 24 96/61 100 05/11/21 00:15 122 H 24 88/67 100 05/11/21 00:00 99.1 F 122 H 24 99/64 100 05/10/21 23:45 117 H 24 98/69 99 05/10/21 23:30 114 H 25 H 87/73 99 05/10/21 23:15 111 H 22 97/63 100 05/10/21 23:00 112 H 22 95/71 99 05/10/21 22:45 113 H 23 102/68 99 05/10/21 22:30 112 H 23 96/69 99 05/10/21 22:15 111 H 24 101/67 98 05/10/21 22:00 110 H 23 96/64 97 05/10/21 21:45 112 H 22 89/63 96 05/10/21 21:30 113 H 22 119/93 95 05/10/21 21:15 114 H 20 94/70 91 L 05/10/21 21:00 99.2 F 105 H 20 95/76 93 L 05/10/21 20:45 101 H 20 82/70 92 L 05/10/21 20:30 99 20 104/93 95 05/10/21 20:15 98 20 97/74 97 05/10/21 20:00 98.2 F 98 22 92/75 99 05/10/21 19:45 101 H 20 118/79 100 05/10/21 19:30 105 H 20 116/94 100 05/10/21 19:15 98 20 127/97 97 05/10/21 19:10 100 20 111/63 98 05/10/21 19:00 96.1 F L 102 H 21 114/85 98 05/10/21 16:02 112 H 28 H 122/89 96 05/10/21 14:51 110 H 24 112/90 98 05/10/21 14:27 111 H 20 90/70 97 05/10/21 13:15 105 H 20 105/72 95 Intake and Output 05/10/21 05/11/21 05/11/21 22:59 06:59 14:59 Intake Total 3503.325 0543.551 9873.11 Output Total 770 540 230 Balance 2733.325 0793.787 7093.11 Intake: IV 3450 1350 600 Lactated Ringers 1,000 ml 450 1350 600 @ 150 mls/hr IV .Q6H40M [facility] Rx#:[id number] Intake, IV Titration 53.325 871.925 7283.11 Amount Norepinephrine 4 mg In 20.594 233.406 56.46 Sodium Chloride 0.9% 250 ml @ 0.05 MCG/KG/MIN 19. 01 mls/hr IV .[id number] [facility] Rx#:[id number] Piperacillin-Tazobactam 3 100 .375 gm In Sodium Chloride 0.9% 100 ml @ 25 mls/hr IVPB Q8HR [facility] Rx# :[id number] Sodium Chloride 0.9% 2, 1000 000 ml @ 999 mls/hr IV . Q2H1M [facility] Rx#:[id number] metroNIDAZOLE-NS PMX 500 100 mg In Saline 1 100ml.bag @ 100 mls/hr IVPB Q8HR [facility] Rx#:[id number] propofoL 1,000 mg In 32.731 143.696 56.65 Empty Bag 1 bag @ Titrate IV .Q0M [facility] Rx#: [id number] Output: Drainage 100 180 75 Abdomen 100 180 75 Urine 570 360 155 Estimated Blood Loss 100 Other: Weight 99.79 kg 100 kg ABP, PAP, CO, CI - Last 8 Hours Arterial Blood Pressure 94/61 Arterial Blood Pressure 85/60 Arterial Blood Pressure 83/57 Arterial Blood Pressure 88/56 Arterial Blood Pressure 94/72 No acute distress, sedated and intubated, with an orally placed endotracheal tube. HEENT examination is grossly unremarkable. Neck supple. Full range of motion. No adenopathy thyromegaly or neck vein distention. Cardiovascular examination reveals regular rhythm rate. S1-S2 normal. No S3 or S4. No discernible murmur noted. Heart rate 114 bpm. Lungs reveal scattered bilateral rhonchi and no wheezes. No crackles. Breath sounds equal bilaterally. Abdomen soft, without bowel sounds. Drainage catheters are noted. Extremities are intact. No cyanosis clubbing or edema. Skin is without rash or lesion. The patient is very diaphoretic. Neurologic examination cannot be adequately assessed as the patient is currently sedated. Results - Laboratory Findings CBC and BMP: 05/11/21 05:32 05/11/21 07:54 ABG ABG pH 7.33 (7.35-7.45) L 05/11/21 06:12 ABG pCO2 40 mmHg (35-45) 05/11/21 06:12 ABG pO2 119 mmHg (83-108) H 05/11/21 06:12 ABG O2 Saturation 98.0 % (94-97) H 05/11/21 06:12 PT/INR, D-dimer PT 11.1 sec (9.0-12.0) 05/10/21 11:41 INR 1.0 (<1.2) 05/10/21 11:41 Abnormal lab findings: Abnormal Labs 05/10/21 05/10/21 05/10/21 10:56 11:41 11:41 WBC RBC 6.24 H Hgb 18.3 H D Hct 55.5 H Plt Count 481 H Neutrophils # (Manual) Lymphocytes # (Manual) 0.84 L Metamyelocytes # (Man) 0.16 H ABG pH ABG pO2 ABG Total CO2 ABG O2 Saturation Potassium Chloride 95 L Carbon Dioxide 20 L BUN 24 H Creatinine 2.66 H Glucose 178 H POC Glucose (mg/dL) 164 H Plasma Lactic Acid Rinku Calcium 10.4 H AST 73 H ALT Troponin I Total Protein Albumin Amylase 861 H* Lipase 5342 H Urine Protein Urine Glucose (UA) Urine Blood Urine Bacteria Hyaline Casts Urine Mucus 05/10/21 05/10/21 05/10/21 11:41 11:41 16:00 WBC RBC Hgb Hct Plt Count Neutrophils # (Manual) Lymphocytes # (Manual) Metamyelocytes # (Man) ABG pH ABG pO2 ABG Total CO2 ABG O2 Saturation Potassium Chloride Carbon Dioxide BUN Creatinine Glucose POC Glucose (mg/dL) Plasma Lactic Acid Rinku 12.3 H* 6.1 H* Calcium AST ALT Troponin I 0.108 H* Total Protein Albumin Amylase Lipase Urine Protein Urine Glucose (UA) Urine Blood Urine Bacteria Hyaline Casts Urine Mucus 05/10/21 05/10/21 05/10/21 19:00 19:40 21:58 WBC RBC Hgb Hct Plt Count Neutrophils # (Manual) Lymphocytes # (Manual) Metamyelocytes # (Man) ABG pH ABG pO2 ABG Total CO2 ABG O2 Saturation Potassium Chloride Carbon Dioxide BUN Creatinine Glucose POC Glucose (mg/dL) 56 L 151 H 112 H Plasma Lactic Acid Rinku Calcium AST ALT Troponin I Total Protein Albumin Amylase Lipase Urine Protein Urine Glucose (UA) Urine Blood Urine Bacteria Hyaline Casts Urine Mucus 05/10/21 05/11/21 05/11/21 22:21 01:44 02:00 WBC RBC Hgb Hct Plt Count Neutrophils # (Manual) Lymphocytes # (Manual) Metamyelocytes # (Man) ABG pH ABG pO2 ABG Total CO2 ABG O2 Saturation Potassium Chloride Carbon Dioxide BUN Creatinine Glucose POC Glucose (mg/dL) 121 H 104 H Plasma Lactic Acid Rinku Calcium AST ALT Troponin I Total Protein Albumin Amylase Lipase Urine Protein 1+ H Urine Glucose (UA) 1+ H Urine Blood Small H Urine Bacteria Rare H Hyaline Casts 5 H Urine Mucus Rare H 05/11/21 05/11/21 05/11/21 03:00 04:03 05:32 WBC 10.7 H RBC Hgb Hct Plt Count Neutrophils # (Manual) 8.80 H Lymphocytes # (Manual) Metamyelocytes # (Man) 0.11 H ABG pH ABG pO2 ABG Total CO2 ABG O2 Saturation Potassium Chloride Carbon Dioxide BUN Creatinine Glucose POC Glucose (mg/dL) 152 H 111 H Plasma Lactic Acid Rinku Calcium AST ALT Troponin I Total Protein Albumin Amylase Lipase Urine Protein Urine Glucose (UA) Urine Blood Urine Bacteria Hyaline Casts Urine Mucus 05/11/21 05/11/21 06:12 07:54 WBC RBC Hgb Hct Plt Count Neutrophils # (Manual) Lymphocytes # (Manual) Metamyelocytes # (Man) ABG pH 7.33 L ABG pO2 119 H ABG Total CO2 -22 L ABG O2 Saturation 98.0 H Potassium 5.8 H Chloride 112 H Carbon Dioxide 19 L BUN 38 H Creatinine 2.32 H Glucose 109 H POC Glucose (mg/dL) Plasma Lactic Acid Rinku Calcium 7.7 L AST 160 H ALT 83 H Troponin I Total Protein 5.0 L Albumin 2.4 L Amylase Lipase 521 H Urine Protein Urine Glucose (UA) Urine Blood Urine Bacteria Hyaline Casts Urine Mucus - Diagnostic Findings Chest x-ray: image reviewed Assessment and Plan Assessment: Postop day #1, status post exploratory laparotomy, gastrectomy, and repair of internal hernia, secondary to gastric ischemia and necrosis. Routine postoperative ventilator management. Acute kidney injury. History of hypertension. Prior history of tobacco use. Prior history of gastric bypass for obesity. Plan: Plan dated 05/11/2021. The patient will get some additional fluids. We'll give the patient 2 L of saline. In addition, the patient be started on antibiotics in the form of Zosyn and Flagyl. In addition, the patient will continue on norepinephrine. In addition, the patient will continue on propofol. An arterial line and triple lumen catheter replaced. Additional recommendations and suggestions are forthcoming. Prognosis is guarded. We will continue to follow make re commendations where appropriate. Time with Patient: Greater than 30
--- NOTE | 2021-05-11 13:39 | PCN ---
PROCEDURE NOTE PULMONARY/CRITICAL CARE PROCEDURE: PROCEDURE PERFORMED: Right brachial art line. PREOP DIAGNOSIS: Frequent blood draws and blood gas monitoring. POSTOP DIAGNOSIS: Frequent blood draws and blood gas monitoring. SUPERVISOR WEAVING: Dr. Walker and Dr. Pettit and Dr. Serrato. ARTERIAL LINE PLACEMENT: Indications: Hemodynamic monitoring. A time-out was completed verifying correct patient, procedure, site, positioning, and implant(s) or special equipment if applicable. Ezra's test was performed to ensure adequate perfusion. The patient's right arm was prepped and draped in sterile fashion. 1% Lidocaine was used to anesthetize the area. An 18G Arrow arterial line was introduced into the brachial artery. The catheter was threaded over the guide wire and the needle was removed with appropriate pulsatile blood return. Blood loss was minimal. The catheter was then sutured in place to the skin and a sterile dressing applied. Perfusion to the extremity distal to the point of catheter insertion was checked and found to be adequate. The patient tolerated the procedure well and there were no complications. The site was the right brachial site. There was good blood return and waveform. The patient tolerated the procedure well. The catheter was sutured in place. There was no immediate complication. Sterile dressing was applied by the nurse. There was universal timeout. MMODL / IJN: [id number] /
--- NOTE | 2021-05-11 13:45 | PCN ---
PROCEDURE NOTE PROCEDURE: Left internal jugular triple-lumen catheter TRIPLE LUMEN CATHETER PLACEMENT: HEALTH CARE COORDINATOR: Dr. Walker, Dr. Serrato, Dr. Pettit. PREOP DIAGNOSIS: Administration of fluids and pressors. POSTOP DIAGNOSIS: Administration of fluids and pressors. Indication: Hemodynamic monitoring/Intravenous access. A time-out was completed verifying correct patient, procedure, site, positioning, and implant(s) or special equipment if applicable. The patient was placed in a dependent position appropriate for triple lumen catheter placement based on the vein to be cannulated. The patient's left neck was prepped and draped in sterile fashion. 1% Lidocaine was used to anesthetize the surrounding skin area. A triple lumen 9F Cordis catheter was introduced into the internal jugular vein using Seldinger technique. The catheter was threaded smoothly over the guide wire and appropriate blood return was obtained. Each lumen of the catheter was evacuated of air and flushed with sterile saline. The catheter was then sutured in place to the skin and a sterile dressing applied. Perfusion to the extremity distal to the point of catheter insertion was checked and found to be adequate. There was universal timeout. We used the internal jugular vein on the left. We did a posterior approach. There was good blood return from all 3 ports. The catheter was sutured in place and sterile dressing was applied by the nurse. A chest x-ray was ordered. The tip of the catheter was seen in the junction between the superior vena cava and the right atrium. There was no immediate complication. MMODL / IJN: [id number] /
--- NOTE | 2021-05-11 15:03 | P.PN ---
Subjective Progress Note Date: 05/11/21 CHIEF COMPLAINT: Abdominal pain HISTORY OF PRESENT ILLNESS: Patient is postop day #1 status post repair of internal hernia and partial gastrectomy for internal hernia with obstruction and necrotic stomach. Patient is in the ICU and intubated. He is requiring Levophed. He also was given fluid boluses. He has been tachycardic and hypotensive. Afebrile. WBC 10.7 Hgb 15.9 platelets 324 sodium 142 potassium 5.8 creatinine 2.32 AST 160 ALT 83 lipase 5342 down to 521 Patient seen and examined with Dr. griffin PHYSICAL EXAM: VITAL SIGNS: Reviewed. GENERAL: Well-developed in no acute distress. HEENT: No sclera icterus. Moist buccal mucosa. Head is atraumatic, normocephalic. ABDOMEN: Soft. Mildly distended. Incisional dressing clean dry and intact. Abdominal binder in place. NOAH drain with serosanguineous output NEUROLOGIC: Intubated and sedated ASSESSMENT: 1. Internal hernia with obstruction and necrotic stomach status post exploratory laparotomy, repair of internal hernia and partial gastrectomy 2. Pneumoperitoneum PLAN: -Continue ICU management -Continue supportive care -Continue antibiotics -Continue IV fluids -Prognosis guarded -Continue DVT prophylaxis Lovenox Physician Forms Examiner note has been reviewed by physician. Signing provider agrees with the documented findings, assessment, and plan of care. Objective - Vital Signs Vital signs: Vital Signs Temp 98.5 F 05/11/21 12:00 Pulse 105 H 05/11/21 14:00 Resp 20 05/11/21 14:00 BP 91/74 05/11/21 10:00 Pulse Ox 100 05/11/21 14:00 Intake & Output 05/10/21 05/11/21 05/11/21 18:59 06:59 18:59 Intake Total 3000 2230.427 3158.31 Output Total 400 910 325 Balance 2600 1447.740 3219.31 Weight 99.79 kg 100 kg Intake: IV 3000 1800 750 Lactated Ringers 1,000 ml 1800 750 @ 150 mls/hr IV .Q6H40M [facility] Rx#:[id number] Intake, IV Titration 814.598 2752.31 Amount Norepinephrine 4 mg In 254.000 56.46 Sodium Chloride 0.9% 250 ml @ 0.05 MCG/KG/MIN 19. 01 mls/hr IV .[id number] [facility] Rx#:[id number] Piperacillin-Tazobactam 3 100 .375 gm In Sodium Chloride 0.9% 100 ml @ 25 mls/hr IVPB Q8HR [facility] Rx# :[id number] Sodium Chloride 0.9% 2, 2000 000 ml @ 999 mls/hr IV . Q2H1M [facility] Rx#:[id number] metroNIDAZOLE-NS PMX 500 100 mg In Saline 1 100ml.bag @ 100 mls/hr IVPB Q8HR [facility] Rx#:[id number] propofoL 1,000 mg In 176.427 151.85 Empty Bag 1 bag @ Titrate IV .Q0M [facility] Rx#: [id number] Output: Drainage 280 135 Abdomen 280 135 Urine 300 630 190 Estimated Blood Loss 100 Other: Voiding Method Indwelling Catheter ABP, PAP, CO, CI - Last Documented Arterial Blood Pressure 105/68 - Labs CBC & Chem 7: 05/11/21 05:32 05/11/21 07:54 Labs: Abnormal Lab Results - Last 24 Hours (Table) 05/10/21 05/10/21 05/10/21 Range/Units 16:00 19:00 19:40 WBC (3.8-10.6) k/uL Neutrophils # (Manual) (1.3-7.7) k/uL Metamyelocytes # (Man) (0) k/uL ABG pH (7.35-7.45) ABG pO2 (83-108) mmHg ABG Total CO2 (19-24) mmol/L ABG O2 Saturation (94-97) % Potassium (3.5-5.1) mmol/L Chloride (98-107) mmol/L Carbon Dioxide (22-30) mmol/L BUN (9-20) mg/dL Creatinine (0.66-1.25) mg/dL Glucose (74-99) mg/dL POC Glucose (mg/dL) 56 L 151 H (75-99) mg/dL Plasma Lactic Acid Rinku 6.1 H* (0.7-2.0) mmol/L Calcium (8.4-10.2) mg/dL AST (17-59) U/L ALT (4-49) U/L Total Protein (6.3-8.2) g/dL Albumin (3.5-5.0) g/dL Lipase (23-300) U/L Urine Protein (Negative) Urine Glucose (UA) (Negative) Urine Blood (Negative) Urine Bacteria (None) /hpf Hyaline Casts (0-2) /lpf Urine Mucus (None) /hpf 05/10/21 05/10/21 05/11/21 Range/Units 21:58 22:21 01:44 WBC (3.8-10.6) k/uL Neutrophils # (Manual) (1.3-7.7) k/uL Metamyelocytes # (Man) (0) k/uL ABG pH (7.35-7.45) ABG pO2 (83-108) mmHg ABG Total CO2 (19-24) mmol/L ABG O2 Saturation (94-97) % Potassium (3.5-5.1) mmol/L Chloride (98-107) mmol/L Carbon Dioxide (22-30) mmol/L BUN (9-20) mg/dL Creatinine (0.66-1.25) mg/dL Glucose (74-99) mg/dL POC Glucose (mg/dL) 112 H 121 H 104 H (75-99) mg/dL Plasma Lactic Acid Rinku (0.7-2.0) mmol/L Calcium (8.4-10.2) mg/dL AST (17-59) U/L ALT (4-49) U/L Total Protein (6.3-8.2) g/dL Albumin (3.5-5.0) g/dL Lipase (23-300) U/L Urine Protein (Negative) Urine Glucose (UA) (Negative) Urine Blood (Negative) Urine Bacteria (None) /hpf Hyaline Casts (0-2) /lpf Urine Mucus (None) /hpf 05/11/21 05/11/21 05/11/21 Range/Units 02:00 03:00 04:03 WBC (3.8-10.6) k/uL Neutrophils # (Manual) (1.3-7.7) k/uL Metamyelocytes # (Man) (0) k/uL ABG pH (7.35-7.45) ABG pO2 (83-108) mmHg ABG Total CO2 (19-24) mmol/L ABG O2 Saturation (94-97) % Potassium (3.5-5.1) mmol/L Chloride (98-107) mmol/L Carbon Dioxide (22-30) mmol/L BUN (9-20) mg/dL Creatinine (0.66-1.25) mg/dL Glucose (74-99) mg/dL POC Glucose (mg/dL) 152 H 111 H (75-99) mg/dL Plasma Lactic Acid Rinku (0.7-2.0) mmol/L Calcium (8.4-10.2) mg/dL AST (17-59) U/L ALT (4-49) U/L Total Protein (6.3-8.2) g/dL Albumin (3.5-5.0) g/dL Lipase (23-300) U/L Urine Protein 1+ H (Negative) Urine Glucose (UA) 1+ H (Negative) Urine Blood Small H (Negative) Urine Bacteria Rare H (None) /hpf Hyaline Casts 5 H (0-2) /lpf Urine Mucus Rare H (None) /hpf 05/11/21 05/11/21 05/11/21 Range/Units 05:32 06:12 07:54 WBC 10.7 H (3.8-10.6) k/uL Neutrophils # (Manual) 8.80 H (1.3-7.7) k/uL Metamyelocytes # (Man) 0.11 H (0) k/uL ABG pH 7.33 L (7.35-7.45) ABG pO2 119 H (83-108) mmHg ABG Total CO2 -22 L (19-24) mmol/L ABG O2 Saturation 98.0 H (94-97) % Potassium 5.8 H (3.5-5.1) mmol/L Chloride 112 H (98-107) mmol/L Carbon Dioxide 19 L (22-30) mmol/L BUN 38 H (9-20) mg/dL Creatinine 2.32 H (0.66-1.25) mg/dL Glucose 109 H (74-99) mg/dL POC Glucose (mg/dL) (75-99) mg/dL Plasma Lactic Acid Rinku (0.7-2.0) mmol/L Calcium 7.7 L (8.4-10.2) mg/dL AST 160 H (17-59) U/L ALT 83 H (4-49) U/L Total Protein 5.0 L (6.3-8.2) g/dL Albumin 2.4 L (3.5-5.0) g/dL Lipase 521 H (23-300) U/L Urine Protein (Negative) Urine Glucose (UA) (Negative) Urine Blood (Negative) Urine Bacteria (None) /hpf Hyaline Casts (0-2) /lpf Urine Mucus (None) /hpf 05/11/21 Range/Units 12:05 WBC (3.8-10.6) k/uL Neutrophils # (Manual) (1.3-7.7) k/uL Metamyelocytes # (Man) (0) k/uL ABG pH (7.35-7.45) ABG pO2 (83-108) mmHg ABG Total CO2 (19-24) mmol/L ABG O2 Saturation (94-97) % Potassium (3.5-5.1) mmol/L Chloride (98-107) mmol/L Carbon Dioxide (22-30) mmol/L BUN (9-20) mg/dL Creatinine (0.66-1.25) mg/dL Glucose (74-99) mg/dL POC Glucose (mg/dL) 108 H (75-99) mg/dL Plasma Lactic Acid Rinku (0.7-2.0) mmol/L Calcium (8.4-10.2) mg/dL AST (17-59) U/L ALT (4-49) U/L Total Protein (6.3-8.2) g/dL Albumin (3.5-5.0) g/dL Lipase (23-300) U/L Urine Protein (Negative) Urine Glucose (UA) (Negative) Urine Blood (Negative) Urine Bacteria (None) /hpf Hyaline Casts (0-2) /lpf Urine Mucus (None) /hpf
[2021-05-11 18:14] LABS: Glucose,Whole Blood 110 mg/dL (75-99)
[2021-05-11] MEDS: CHLORHEXIDINE GLUCONATE 15 ML CUP MUCOUS MEM SCH (20:13)
[2021-05-11] MEDS: FLUCONAZOLE IN NACL,ISO-OSM 400 MG in SALINE 1 200ML.BAG IVPB SCH (20:13)
--- NOTE | 2021-05-11 21:49 | P.CONS ---
History of Present Illness - Reason for Consult Consult date: 05/11/21 Medical management - Chief Complaint Abdominal pain. - History of Present Illness Patient is a 41-year-old male with a known history of hypertension, history of bariatric surgery and hernia repair and PTSD and previous history of smoking presents to ER with complaints of severe abdominal pain and vomiting. Patient was transferred from the [facility]. Patient was seen in the ER on 05/09/2020 and presented back to the hospital with complaints of abdominal pain. Patient underwent gastric bypass surgery in [place] and had similar complaints of pain and was diagnosed with internal hernia. CT abdomen pelvis showed pneumoperitoneum interval development of free fluid within the abdomen consistent with probable bowel perforation and obstruction as previously reported. Chest x-ray showed low lung volumes with the left greater than right bilateral linear scarring and atelectasis. Patient underwent repair of ventral hernia and partial gastrectomy. He was transferred to MICU. Patient is currently mechanical ventilator and intubated. Sedated and paralyzed. Laboratory data showed WBC 4.0 hemoglobin 18.3 and platelets 481 BUN 24 and creatinine 2.66 Lactic acid 12.3 on admission calcium 10.4 troponin 0 0.108 Amylase 861 lipase 5 07/10/2019 COVID-19 PCR not detected Review of Systems Complete review of systems could not be obtained from the patient at this time. Past Medical History Past Medical History: Hypertension History of Any Multi-Drug Resistant Organisms: None Reported Past Surgical History: Bariatric Surgery, Hernia Repair Past Psychological History: PTSD Smoking Status: Former smoker Past Alcohol Use History: Occasional Past Drug Use History: None Reported Medications and Allergies Home Medications Medication Instructions Recorded Confirmed Type Famotidine [Pepcid] 20 mg PO BID #28 tablet 05/09/21 05/10/21 Rx Acetaminophen [Tylenol] 650 mg PO BID PRN 05/10/21 05/10/21 History Mag Hydrox/Al Hydrox/Simeth 15 ml PO TID PRN 05/10/21 05/10/21 History [Maalox] Meloxicam [Mobic] 15 mg PO HS 05/10/21 05/10/21 History Ondansetron HCl [Zofran] 4 mg PO Q8H PRN 05/10/21 05/10/21 History Sertraline [Zoloft] 100 mg PO DAILY 05/10/21 05/10/21 History Sucralfate [Carafate] 1 gm PO AC-TID 05/10/21 05/10/21 History cloNIDine HCL [Catapres] 0.2 mg PO BID 05/10/21 05/10/21 History hydrOXYzine pamoate [Vistaril] 50 mg PO BID 05/10/21 05/10/21 History hydroCHLOROthiazide 50 mg PO HS 05/10/21 05/10/21 History traZODone HCL [Desyrel] 100 mg PO HS 05/10/21 05/10/21 History Allergies Allergy/AdvReac Type Severity Reaction Status Date / Time No Known Allergies Allergy Verified 05/10/21 12:09 Physical Exam Vitals: Vital Signs Temp Pulse Resp BP Pulse Ox 05/11/21 11:00 114 H 20 98 05/11/21 10:45 115 H 20 97 05/11/21 10:30 117 H 20 96 05/11/21 10:15 122 H 20 97 05/11/21 10:00 126 H 20 91/74 97 05/11/21 09:45 125 H 20 78 L 05/11/21 09:30 129 H 20 89/63 97 05/11/21 09:15 129 H 20 91/62 98 05/11/21 09:00 129 H 21 103/74 97 05/11/21 08:45 123 H 25 H 105/74 100 05/11/21 08:30 123 H 21 109/77 100 05/11/21 08:15 123 H 20 112/80 100 05/11/21 08:00 99 F 120 H 24 109/75 100 05/11/21 07:45 122 H 21 96/77 100 05/11/21 07:30 120 H 21 103/68 100 05/11/21 07:00 121 H 20 85/70 100 05/11/21 06:45 124 H 20 93/65 100 05/11/21 06:30 123 H 21 95/70 100 05/11/21 06:15 123 H 20 93/83 100 05/11/21 06:00 120 H 21 90/78 100 05/11/21 05:45 118 H 20 103/69 100 05/11/21 05:30 124 H 21 95/75 100 05/11/21 05:15 121 H 10 L 83/66 99 05/11/21 05:00 123 H 20 96/63 99 05/11/21 04:45 123 H 20 93/61 99 05/11/21 04:30 124 H 20 81/66 99 05/11/21 04:15 123 H 20 92/59 99 05/11/21 04:00 97.9 F 122 H 20 95/72 100 05/11/21 03:45 123 H 20 77/62 100 05/11/21 03:30 124 H 20 80/63 100 05/11/21 03:15 124 H 20 78/63 100 05/11/21 03:00 122 H 20 81/64 100 05/11/21 02:45 120 H 21 85/59 100 05/11/21 02:30 123 H 20 90/69 100 05/11/21 02:15 124 H 24 91/69 100 05/11/21 02:00 122 H 25 H 90/66 100 05/11/21 01:45 121 H 25 H 93/68 100 05/11/21 01:30 120 H 24 94/66 100 05/11/21 01:15 113 H 23 92/68 100 05/11/21 01:00 123 H 25 H 92/74 100 05/11/21 00:45 123 H 25 H 98/59 100 05/11/21 00:41 124 H 25 H 98/59 100 05/11/21 00:30 124 H 24 96/61 100 05/11/21 00:15 122 H 24 88/67 100 05/11/21 00:00 99.1 F 122 H 24 99/64 100 05/10/21 23:45 117 H 24 98/69 99 05/10/21 23:30 114 H 25 H 87/73 99 05/10/21 23:15 111 H 22 97/63 100 05/10/21 23:00 112 H 22 95/71 99 05/10/21 22:45 113 H 23 102/68 99 05/10/21 22:30 112 H 23 96/69 99 05/10/21 22:15 111 H 24 101/67 98 05/10/21 22:00 110 H 23 96/64 97 05/10/21 21:45 112 H 22 89/63 96 05/10/21 21:30 113 H 22 119/93 95 05/10/21 21:15 114 H 20 94/70 91 L 05/10/21 21:00 99.2 F 105 H 20 95/76 93 L 05/10/21 20:45 101 H 20 82/70 92 L 05/10/21 20:30 99 20 104/93 95 05/10/21 20:15 98 20 97/74 97 05/10/21 20:00 98.2 F 98 22 92/75 99 05/10/21 19:45 101 H 20 118/79 100 05/10/21 19:30 105 H 20 116/94 100 05/10/21 19:15 98 20 127/97 97 05/10/21 19:10 100 20 111/63 98 05/10/21 19:00 96.1 F L 102 H 21 114/85 98 05/10/21 16:02 112 H 28 H 122/89 96 05/10/21 14:51 110 H 24 112/90 98 05/10/21 14:27 111 H 20 90/70 97 05/10/21 13:15 105 H 20 105/72 95 Intake and Output 05/10/21 05/11/21 05/11/21 22:59 06:59 14:59 Intake Total 3503.325 5691.615 0445.11 Output Total 770 540 230 Balance 2733.325 1650.925 4839.11 Intake: IV 3450 1350 600 Lactated Ringers 1,000 ml 450 1350 600 @ 150 mls/hr IV .Q6H40M [facility] Rx#:[id number] Intake, IV Titration 53.325 734.291 8662.11 Amount Norepinephrine 4 mg In 20.594 233.406 56.46 Sodium Chloride 0.9% 250 ml @ 0.05 MCG/KG/MIN 19. 01 mls/hr IV .[id number] [facility] Rx#:[id number] Piperacillin-Tazobactam 3 100 .375 gm In Sodium Chloride 0.9% 100 ml @ 25 mls/hr IVPB Q8HR [facility] Rx# :[id number] Sodium Chloride 0.9% 2, 1000 000 ml @ 999 mls/hr IV . Q2H1M [facility] Rx#:[id number] metroNIDAZOLE-NS PMX 500 100 mg In Saline 1 100ml.bag @ 100 mls/hr IVPB Q8HR [facility] Rx#:[id number] propofoL 1,000 mg In 32.731 143.696 56.65 Empty Bag 1 bag @ Titrate IV .Q0M [facility] Rx#: [id number] Output: Drainage 100 180 75 Abdomen 100 180 75 Urine 570 360 155 Estimated Blood Loss 100 Other: Weight 99.79 kg 100 kg ABP, PAP, CO, CI - Last 8 Hours Arterial Blood Pressure 94/61 Arterial Blood Pressure 85/60 Arterial Blood Pressure 83/57 Arterial Blood Pressure 88/56 Arterial Blood Pressure 94/72 PHYSICAL EXAMINATION: Patient is currently lying in the bed. Sedated. Intubated and on mechanical ventilator... HEENT: Normocephalic. Neck is supple. Pupils reactive. Nostrils clear. Oral cavity is moist. Neck reveals no JVD, carotid bruits, or thyromegaly. CHEST EXAMINATION: Trachea is central. Symmetrical expansion. Lung brown clear to auscultation and percussion. CARDIAC: Normal S1, S2 with no gallops. No murmurs ABDOMEN: Soft. Abdominal binder in place., Bowel sounds diminished.. No abdominal bruits. Extremities: reveal no edema. No clubbing or cyanosis Neurologically Intubated and on mechanical ventilator. No gross focal deficits noted Skin: No rash or skin lesions. Psychiatric: Could not be assessed completely. Musculoskeletal: No joint swelling or deformity. Results CBC & Chem 7: 05/11/21 05:32 05/11/21 07:54 Labs: Abnormal Lab Results - Last 24 Hours (Table) 05/10/21 05/10/21 05/10/21 Range/Units 11:41 11:41 11:41 WBC (3.8-10.6) k/uL RBC 6.24 H (4.30-5.90) m/uL Hgb 18.3 H D (13.0-17.5) gm/dL Hct 55.5 H (39.0-53.0) % Plt Count 481 H (150-450) k/uL Neutrophils # (Manual) (1.3-7.7) k/uL Lymphocytes # (Manual) 0.84 L (1.0-4.8) k/uL Metamyelocytes # (Man) 0.16 H (0) k/uL ABG pH (7.35-7.45) ABG pO2 (83-108) mmHg ABG Total CO2 (19-24) mmol/L ABG O2 Saturation (94-97) % Potassium (3.5-5.1) mmol/L Chloride 95 L (98-107) mmol/L Carbon Dioxide 20 L (22-30) mmol/L BUN 24 H (9-20) mg/dL Creatinine 2.66 H (0.66-1.25) mg/dL Glucose 178 H (74-99) mg/dL POC Glucose (mg/dL) (75-99) mg/dL Plasma Lactic Acid Rinku 12.3 H* (0.7-2.0) mmol/L Calcium 10.4 H (8.4-10.2) mg/dL AST 73 H (17-59) U/L ALT (4-49) U/L Troponin I (0.000-0.034) ng/mL Total Protein (6.3-8.2) g/dL Albumin (3.5-5.0) g/dL Amylase 861 H* (30-110) U/L Lipase 5342 H (23-300) U/L Urine Protein (Negative) Urine Glucose (UA) (Negative) Urine Blood (Negative) Urine Bacteria (None) /hpf Hyaline Casts (0-2) /lpf Urine Mucus (None) /hpf 05/10/21 05/10/21 05/10/21 Range/Units 11:41 16:00 19:00 WBC (3.8-10.6) k/uL RBC (4.30-5.90) m/uL Hgb (13.0-17.5) gm/dL Hct (39.0-53.0) % Plt Count (150-450) k/uL Neutrophils # (Manual) (1.3-7.7) k/uL Lymphocytes # (Manual) (1.0-4.8) k/uL Metamyelocytes # (Man) (0) k/uL ABG pH (7.35-7.45) ABG pO2 (83-108) mmHg ABG Total CO2 (19-24) mmol/L ABG O2 Saturation (94-97) % Potassium (3.5-5.1) mmol/L Chloride (98-107) mmol/L Carbon Dioxide (22-30) mmol/L BUN (9-20) mg/dL Creatinine (0.66-1.25) mg/dL Glucose (74-99) mg/dL POC Glucose (mg/dL) 56 L (75-99) mg/dL Plasma Lactic Acid Rinku 6.1 H* (0.7-2.0) mmol/L Calcium (8.4-10.2) mg/dL AST (17-59) U/L ALT (4-49) U/L Troponin I 0.108 H* (0.000-0.034) ng/mL Total Protein (6.3-8.2) g/dL Albumin (3.5-5.0) g/dL Amylase (30-110) U/L Lipase (23-300) U/L Urine Protein (Negative) Urine Glucose (UA) (Negative) Urine Blood (Negative) Urine Bacteria (None) /hpf Hyaline Casts (0-2) /lpf Urine Mucus (None) /hpf 05/10/21 05/10/21 05/10/21 Range/Units 19:40 21:58 22:21 WBC (3.8-10.6) k/uL RBC (4.30-5.90) m/uL Hgb (13.0-17.5) gm/dL Hct (39.0-53.0) % Plt Count (150-450) k/uL Neutrophils # (Manual) (1.3-7.7) k/uL Lymphocytes # (Manual) (1.0-4.8) k/uL Metamyelocytes # (Man) (0) k/uL ABG pH (7.35-7.45) ABG pO2 (83-108) mmHg ABG Total CO2 (19-24) mmol/L ABG O2 Saturation (94-97) % Potassium (3.5-5.1) mmol/L Chloride (98-107) mmol/L Carbon Dioxide (22-30) mmol/L BUN (9-20) mg/dL Creatinine (0.66-1.25) mg/dL Glucose (74-99) mg/dL POC Glucose (mg/dL) 151 H 112 H 121 H (75-99) mg/dL Plasma Lactic Acid Rinku (0.7-2.0) mmol/L Calcium (8.4-10.2) mg/dL AST (17-59) U/L ALT (4-49) U/L Troponin I (0.000-0.034) ng/mL Total Protein (6.3-8.2) g/dL Albumin (3.5-5.0) g/dL Amylase (30-110) U/L Lipase (23-300) U/L Urine Protein (Negative) Urine Glucose (UA) (Negative) Urine Blood (Negative) Urine Bacteria (None) /hpf Hyaline Casts (0-2) /lpf Urine Mucus (None) /hpf 05/11/21 05/11/21 05/11/21 Range/Units 01:44 02:00 03:00 WBC (3.8-10.6) k/uL RBC (4.30-5.90) m/uL Hgb (13.0-17.5) gm/dL Hct (39.0-53.0) % Plt Count (150-450) k/uL Neutrophils # (Manual) (1.3-7.7) k/uL Lymphocytes # (Manual) (1.0-4.8) k/uL Metamyelocytes # (Man) (0) k/uL ABG pH (7.35-7.45) ABG pO2 (83-108) mmHg ABG Total CO2 (19-24) mmol/L ABG O2 Saturation (94-97) % Potassium (3.5-5.1) mmol/L Chloride (98-107) mmol/L Carbon Dioxide (22-30) mmol/L BUN (9-20) mg/dL Creatinine (0.66-1.25) mg/dL Glucose (74-99) mg/dL POC Glucose (mg/dL) 104 H 152 H (75-99) mg/dL Plasma Lactic Acid Rinku (0.7-2.0) mmol/L Calcium (8.4-10.2) mg/dL AST (17-59) U/L ALT (4-49) U/L Troponin I (0.000-0.034) ng/mL Total Protein (6.3-8.2) g/dL Albumin (3.5-5.0) g/dL Amylase (30-110) U/L Lipase (23-300) U/L Urine Protein 1+ H (Negative) Urine Glucose (UA) 1+ H (Negative) Urine Blood Small H (Negative) Urine Bacteria Rare H (None) /hpf Hyaline Casts 5 H (0-2) /lpf Urine Mucus Rare H (None) /hpf 05/11/21 05/11/21 05/11/21 Range/Units 04:03 05:32 06:12 WBC 10.7 H (3.8-10.6) k/uL RBC (4.30-5.90) m/uL Hgb (13.0-17.5) gm/dL Hct (39.0-53.0) % Plt Count (150-450) k/uL Neutrophils # (Manual) 8.80 H (1.3-7.7) k/uL Lymphocytes # (Manual) (1.0-4.8) k/uL Metamyelocytes # (Man) 0.11 H (0) k/uL ABG pH 7.33 L (7.35-7.45) ABG pO2 119 H (83-108) mmHg ABG Total CO2 -22 L (19-24) mmol/L ABG O2 Saturation 98.0 H (94-97) % Potassium (3.5-5.1) mmol/L Chloride (98-107) mmol/L Carbon Dioxide (22-30) mmol/L BUN (9-20) mg/dL Creatinine (0.66-1.25) mg/dL Glucose (74-99) mg/dL POC Glucose (mg/dL) 111 H (75-99) mg/dL Plasma Lactic Acid Rinku (0.7-2.0) mmol/L Calcium (8.4-10.2) mg/dL AST (17-59) U/L ALT (4-49) U/L Troponin I (0.000-0.034) ng/mL Total Protein (6.3-8.2) g/dL Albumin (3.5-5.0) g/dL Amylase (30-110) U/L Lipase (23-300) U/L Urine Protein (Negative) Urine Glucose (UA) (Negative) Urine Blood (Negative) Urine Bacteria (None) /hpf Hyaline Casts (0-2) /lpf Urine Mucus (None) /hpf 05/11/21 Range/Units 07:54 WBC (3.8-10.6) k/uL RBC (4.30-5.90) m/uL Hgb (13.0-17.5) gm/dL Hct (39.0-53.0) % Plt Count (150-450) k/uL Neutrophils # (Manual) (1.3-7.7) k/uL Lymphocytes # (Manual) (1.0-4.8) k/uL Metamyelocytes # (Man) (0) k/uL ABG pH (7.35-7.45) ABG pO2 (83-108) mmHg ABG Total CO2 (19-24) mmol/L ABG O2 Saturation (94-97) % Potassium 5.8 H (3.5-5.1) mmol/L Chloride 112 H (98-107) mmol/L Carbon Dioxide 19 L (22-30) mmol/L BUN 38 H (9-20) mg/dL Creatinine 2.32 H (0.66-1.25) mg/dL Glucose 109 H (74-99) mg/dL POC Glucose (mg/dL) (75-99) mg/dL Plasma Lactic Acid Rinku (0.7-2.0) mmol/L Calcium 7.7 L (8.4-10.2) mg/dL AST 160 H (17-59) U/L ALT 83 H (4-49) U/L Troponin I (0.000-0.034) ng/mL Total Protein 5.0 L (6.3-8.2) g/dL Albumin 2.4 L (3.5-5.0) g/dL Amylase (30-110) U/L Lipase 521 H (23-300) U/L Urine Protein (Negative) Urine Glucose (UA) (Negative) Urine Blood (Negative) Urine Bacteria (None) /hpf Hyaline Casts (0-2) /lpf Urine Mucus (None) /hpf Assessment and Plan Assessment: Bowel perforation due to gastric ischemia and necrosis. Status post exploratory laparotomy and repair of ventral hernia and partial gastrectomy. Postoperative day 1. Acute kidney injury due to ATN Hyperkalemia secondary to acute kidney injury Mild transaminitis Elevated lipase level Hypertension History of smoking Previous history of gastric bypass surgery and history of ventral hernia.. DVT prophylaxis. With Lovenox subcu. plan: Patient is currently in MICU. On mechanical ventilator. Continue with IV hydration, broad-spectrum antibiotics in the form of Zosyn, Flagyl and fl uconazole. Follow culture reports. Monitor renal function closely. Pulmonary, ID and general surgery is on board. will continue to follow closely and further recommendations based on clinical course. Prognosis is guarded at this time. Thank you for your consult. Time with Patient: Greater than 30
[2021-05-11 22:51] LABS: Glucose,Whole Blood 126 mg/dL (75-99)
[2021-05-12] MEDS: LACTATED RINGERS 1,000 ML IV SCH ×3 (00:57→15:10)
[2021-05-12] MEDS: HYDROmorphone 1 MG/ML 1 ML SYRINGE IVP PRN ×2 (03:49→21:32)
[2021-05-12 05:13] LABS: Calcium 7.3 mg/dL (8.4-10.2); Potassium 4.7 mmol/L (3.5-5.1); Total Bilirubin 0.7 mg/dL (0.2-1.3); Total Protein 4.2 g/dL (6.3-8.2)
[2021-05-12 05:28] LABS: ABG Base Excess -2.3 mmol/L; ABG HCO3 23 mmol/L (21-25); ABG Oxygen Saturation 98.5 % (94-97); ABG PCO2 42 mmHg (35-45); ABG PH 7.36 (7.35-7.45); ABG PO2 131 mmHg (83-108); ABG TCO2 25 mmol/L (19-24); Allen Test Performed? Yes
[2021-05-12 05:49] LABS: HCT 36.2 % (39.0-53.0); MCH 30.1 pg (25.0-35.0); Mean Platelet Volume 7.7; Platelet Count 259 k/uL (150-450); RBC 3.98 m/uL (4.30-5.90); RDW 14.9 % (11.5-15.5); WBC 6.4 k/uL (3.8-10.6)
[2021-05-12] MEDS: ENOXAPARIN 40 MG/0.4 ML SYRINGE SQ SCH (08:19)
[2021-05-12] MEDS: PIPERACILLIN-TAZOBACTAM 3.375 GM in SODIUM CHLORIDE 0.9% 100 ML IVPB SCH ×2 (08:19→15:32)
[2021-05-12] MEDS: metroNIDAZOLE-NS PMX 500 MG in SALINE 1 100ML.BAG IVPB SCH ×2 (08:19→15:32)
[2021-05-12] MEDS: CHLORHEXIDINE GLUCONATE 15 ML CUP MUCOUS MEM SCH (08:19)
--- NOTE | 2021-05-12 09:03 | XR ---
EXAMINATION TYPE: XR chest 1V portable DATE OF EXAM: 05/12/2021 Comparison: 05/11/2021 Clinical History: 41-year-old male sepsis Findings: ETT tube satisfactory. NG tube sidehole near GE junction. Consider further advancement by 4 cm into t he stomach. Cholecystectomy clips. Some surgical clips at the GE junction. Left heart margin partiall y secured by adjacent pleural parenchymal opacity. Some patchy right lower lobe opacity slightly incr eased. Continued [id number] left effusion with prominent retrocardiac and left basilar opacity . Impression: Continued [id number] left pleural effusion with left basilar and retrocardiac atelectasis and/ or consolidation. Mild patchy opacity at the right lower lung slightly increased.
[2021-05-12 09:11] LABS: Band Neutrophils % 17 %; Lymphocytes # (M) 0.32 k/uL (1.0-4.8); Monocytes # (M) 0.13 k/uL (0-1.0); Neutrophils % (M) 76 %; Nucleated Red Blood Cells 0 /100 WBC (0-0); Total Cells Counted 100
[2021-05-12 09:12] LABS: Poikilocytosis (M) Present; Rouleaux Present
[2021-05-12] MEDS: DEXMEDETOMIDINE/0.9% NACL(PMX) 400 MCG in EMPTY BAG 1 BAG IV SCH ×2 (09:33→21:57)
--- NOTE | 2021-05-12 10:08 | P.PN ---
Subjective Progress Note Date: 05/12/21 Principal diagnosis: Respiratory failure. Pulmonary/critical care consult dated 05/11/2021. A 41-year-old incarcerated male, seen in the emergency department on May 10, for abdominal pain, and vomiting. The patient was seen in the emergency department the day before, evaluated, and discharged back to the assisted. The patient apparently had a gastric bypass a couple years ago, and [place]. Anyway, the patient was evaluated again, and found to have a necrotic stomach, surgery, including a exploratory laparotomy, gastrectomy, and repair of internal hernia. The patient was returned back to the intensive care unit, on the mechanical ventilator. He is on the volume assist control mode, rate of 20, tidal volume 500, FiO2 50%, and PEEP of 5. Blood gases show pO2 119, pCO2 40, and a pH is 7.33. He is currently postop day #1. He is getting lactated Ringer's at 150 mL an hour, norepinephrine at 8 mcg/m, and propofol 50 mcg/kg/m. He is currently not on any antibiotics. We start Zosyn and Flagyl. In addition, we place a right brachial heart line, and a left internal jugular triple-lumen catheter. Apparently, the patient's only past medical history includes hypertension, the gastric bypass surgery, and hernia repair. White count 10.7, hemoglobin 15.9, hematocrit 48.2, platelet count 324,000. Sodium 142, potassium 5.8, chlorides 112, CO2 19, anion gap 11, BUN 38, and creatinine 2.32. AST 160, with an ALT of 83. Lipase is 521. Chest x-ray shows consolid ation and/or effusion/atelectasis, at the left lung base. Progress note dated 05/12/2021. 41-year-old male, seen yesterday in consultation. He was seen in the emergency department initially on May 10 for abdominal pain and vomiting. He was seen the day before in the ER, and discharged back to the assisted. The patient was found to have a necrotic stomach, perforated viscus, and underwent a exploratory laparotomy, gastrectomy, and repair of internal hernia. The patient was transferred back to the intensive care unit, on the ventilator. He is postop day #2. Currently, he's on volume assist control, rate 20, tidal volume 500, FiO2 40%, and he will be reduced to 30%, and a PEEP of 5. Arterial blood gases show pO2 of 131, pCO2 42, and pH is 7.36. The patient is getting lactated Ringer's at 50 mL an hour, propofol at 55 mcg/kg/m, norepinephrine, which has been weaned off. In addition, the patient is on Zosyn and Flagyl. The patient will have a daily interruption of sedation today, and a spontaneous breathing trial. I've asked the nurse to wean off the propofol, and use dexmedetomidine for sedation necessary. White count 6.4, hemoglobin 12, hematocrit 36.2, and platelet count 259,000. Sodium 138, potassium 4.7, chlorides 112, CO2 21, anion gap 5, BUN 38 and creatinine 2.01. AST was 102. Albumin was 2. Chest x-ray shows a small left pleural effusion, with some left basilar retrocardiac atelectasis. There is also some patchy infiltrate or atelectasis at the right base. Microbiologic studies are thus far negative. Objective - Vital Signs Vital signs: Vital Signs Temp 98.1 F 05/12/21 08:00 Pulse 125 H 05/12/21 09:00 Resp 20 05/12/21 09:00 BP 91/74 05/11/21 22:45 Pulse Ox 91 L 05/12/21 09:00 Intake & Output 05/11/21 05/12/21 05/12/21 18:59 06:59 18:59 Intake Total 4623.857 2503.957 604.523 Output Total 785 1130 265 Balance 3838.857 1373.957 339.523 Weight 100.5 kg Intake: IV 1650 2022 512 Lactated Ringers 1,000 ml 1650 1050 @ 150 mls/hr IV .Q6H40M [facility] Rx#:[id number] Lactated Ringers 1,000 ml 900 300 @ 150 mls/hr IV .Q6H40M [facility] Rx#:[id number] Piperacillin-Tazobactam 3 100 .375 gm In Sodium Chloride 0.9% 100 ml @ 25 mls/hr IVPB Q8HR [facility] Rx# :[id number] metroNIDAZOLE-NS PMX 500 100 mg In Saline 1 100ml.bag @ 100 mls/hr IVPB Q8HR [facility] Rx#:[id number] pressure bag 72 12 Intake, IV Titration 2973.857 481.957 92.523 Amount Norepinephrine 4 mg In 254.507 202.457 2.788 Sodium Chloride 0.9% 250 ml @ 0.05 MCG/KG/MIN 19. 01 mls/hr IV .[id number] [facility] Rx#:[id number] Piperacillin-Tazobactam 3 200 .375 gm In Sodium Chloride 0.9% 100 ml @ 25 mls/hr IVPB Q8HR [facility] Rx# :[id number] Sodium Chloride 0.9% 2, 2000 000 ml @ 999 mls/hr IV . Q2H1M [facility] Rx#:[id number] metroNIDAZOLE-NS PMX 500 200 mg In Saline 1 100ml.bag @ 100 mls/hr IVPB Q8HR [facility] Rx#:[id number] propofoL 1,000 mg In 319.35 279.5 89.735 Empty Bag 1 bag @ Titrate IV .Q0M [facility] Rx#: [id number] Output: Drainage 275 250 50 Abdomen 275 250 50 Urine 510 880 215 Other: Voiding Method Indwelling Catheter Indwelling Catheter ABP, PAP, CO, CI - Last Documented Arterial Blood Pressure 159/96 - Exam No acute distress, sedated and intubated, with an orally placed endotracheal tube. HEENT examination is grossly unremarkable. Neck supple. Full range of motion. No adenopathy thyromegaly or neck vein distention. Cardiovascular examination reveals regular rhythm rate. S1-S2 normal. No S3 or S4. No discernible murmur noted. Heart rate 120 bpm. Lungs reveal scattered bilateral rhonchi and no wheezes. No crackles. Breath sounds equal bilaterally. Abdomen soft, without bowel sounds. Drainage catheters are noted. Extremities are intact. No cyanosis clubbing or edema. Skin is without rash or lesion. The patient is very diaphoretic. Neurologic examination cannot be adequately assessed as the patient is currently sedated. - Labs CBC & Chem 7: 05/12/21 04:24 05/12/21 04:24 Labs: Abnormal Lab Results - Last 24 Hours (Table) 05/11/21 05/11/21 05/11/21 Range/Units 12:05 18:12 22:49 RBC (4.30-5.90) m/uL Hgb (13.0-17.5) gm/dL Hct (39.0-53.0) % Lymphocytes # (Manual) (1.0-4.8) k/uL ABG pO2 (83-108) mmHg ABG Total CO2 (19-24) mmol/L ABG O2 Saturation (94-97) % Chloride (98-107) mmol/L Carbon Dioxide (22-30) mmol/L BUN (9-20) mg/dL Creatinine (0.66-1.25) mg/dL Glucose (74-99) mg/dL POC Glucose (mg/dL) 108 H 110 H 126 H (75-99) mg/dL Calcium (8.4-10.2) mg/dL AST (17-59) U/L Total Protein (6.3-8.2) g/dL Albumin (3.5-5.0) g/dL 05/12/21 05/12/21 05/12/21 Range/Units 04:24 04:24 05:23 RBC 3.98 L (4.30-5.90) m/uL Hgb 12.0 L D (13.0-17.5) gm/dL Hct 36.2 L (39.0-53.0) % Lymphocytes # (Manual) 0.32 L (1.0-4.8) k/uL ABG pO2 131 H (83-108) mmHg ABG Total CO2 25 H (19-24) mmol/L ABG O2 Saturation 98.5 H (94-97) % Chloride 112 H (98-107) mmol/L Carbon Dioxide 21 L (22-30) mmol/L BUN 38 H (9-20) mg/dL Creatinine 2.01 H (0.66-1.25) mg/dL Glucose 119 H (74-99) mg/dL POC Glucose (mg/dL) (75-99) mg/dL Calcium 7.3 L (8.4-10.2) mg/dL AST 102 H (17-59) U/L Total Protein 4.2 L (6.3-8.2) g/dL Albumin 2.0 L (3.5-5.0) g/dL Microbiology - Last 24 Hours (Table) 05/11/21 Unknown Gram Stain - Preliminary Sputum Sputum Culture - Preliminary Assessment and Plan Assessment: Postop day #2, status post exploratory laparotomy, gastrectomy, and repair of internal hernia, secondary to gastric ischemia and necrosis. Routine postoperative ventilator management. Acute kidney injury. History of hypertension. Prior history of tobacco use. Prior history of gastric bypass for obesity. Plan: Plan dated 05/11/2021. The patient will get some additional fluids. We'll give the patient 2 L of danna ine. In addition, the patient be started on antibiotics in the form of Zosyn and Flagyl. In addition, the patient will continue on norepinephrine. In addition, the patient will continue on propofol. An arterial line and triple lumen catheter replaced. Additional recommendations and suggestions are forthcoming. Prognosis is guarded. We will continue to follow make recommendations where appropriate. Plan dated 05/12/2021. The patient is going to be given a daily interruption of sedation and a spontaneous breathing trial today. I told the nurse to wean him off the propofol, and use dexmedetomidine for sedation or agitation. The patient has been weaned off the norepinephrine. Labs are reviewed. Medications are reviewed. We will continue to follow and make recommendations where ap propriate. Prognosis is guarded. Chest x-ray does show some patchy bibasilar infiltrates and/or atelectasis, and a relatively small left-sided pleural effusion. We will continue to monitor this. Time with Patient: Greater than 30
[2021-05-12 11:21] LABS: Glucose,Whole Blood 111 mg/dL (75-99)
[2021-05-12] MEDS: NOREPINEPHRINE 4 MG in SODIUM CHLORIDE 0.9% 250 ML IV SCH (12:47)
--- NOTE | 2021-05-12 13:05 | P.CONS ---
History of Present Illness - Reason for Consult Consult date: 05/11/21 abdominal sepsis Requesting physician: Kaz Olivo - Chief Complaint vomiting and abd pain x 2 days - History of Present Illness History of Present Illness : Patient is a 41-year-old male who was brought into the ER yesterday morning for evaluation of generalized abdominal pain and frequent vomiting, patient symptom has been going on for 2 days unable to keep anything down, patient on presentation to the hospital was afebrile and no fever recorded subsequently patient did have a normal white count repeat is mildly with a 10.7 BUN and creatinine is elevated as well as liver enzymes urine is negative chronic PCR was negative patient did have a chest x-ray left greater than right bilaterally there scarring or atelectasis patient did have a CT of abdominal pelvis pneumoperitoneum consistent with probable bowel perforation patient was evaluated by surgery was taken to the OR last evening in this patient with status post laparotomy patient was noticed to have a internal hernia with obstruction and necrotic stomach patient status post repair of the ventral hernia and partial gastrectomy patient has been in the ICU on the vent post surgery infectious was consulted for gastric necrosis and sepsis most information has been obtained from review the chart and talking nursing staff the patient currently being on the vent insipid provide any history Review of system: Positive points mentioned in history of present illness complete review could no t be obtained because of his underlying medical condition Past medical history : Reviewed, documented below Past surgical history : Reviewed, documented below Social history: Reviewed, documented below Medications: Reviewed, as documented below EXAMINATION: Vital sigans= Reviewed and documented below GENERAL DESCRIPTION: Middle-aged intubated on the vent. No tachypnea or accessory muscle of respiration use. HEENT: Shows Pallor , no scleral icterus. Oral mucous membrane is dry. NECK: Trachea central, no thyromegaly. LUNGS: Unlabored breathing. Clear to auscultation anteriorly. No wheeze or crackle. HEART: S1, S2, regular rate and rhythm. ABDOMEN: Soft, soft no distention incision is intact EXTREMITIES: No edema feet SKIN: No rash, no masses palpable. NEUROLOGICAL: The patient is sedated on the vent LABS AND RADIOLOGY: Reviewed results see below Assessment : Patient admitted to the hospital with abdominal sepsis in this patient who did have a internal hernia with obstruction and necrotic stomach status post partial gastrectomy will need to cover for the data gram-negative mostly aerobes and the yeast Plan: 1-patient is currently with appropriate body form of Zosyn and fluconazole which will be continued 2-gentle IV fluid 3-cultures will be followed We will follow on clinical condition and cultures to further adjust medication if needed Thank you for this consultation we will follow the patient along with you Past Medical History Past Medical History: Hypertension History of Any Multi-Drug Resistant Organisms: None Reported Past Surgical History: Bariatric Surgery, Hernia Repair Past Psychological History: PTSD Smoking Status: Former smoker Past Alcohol Use History: Occasional Past Drug Use History: None Reported Medications and Allergies Home Medications Medication Instructions Recorded Confirmed Type Famotidine [Pepcid] 20 mg PO BID #28 tablet 05/09/21 05/10/21 Rx Acetaminophen [Tylenol] 650 mg PO BID PRN 05/10/21 05/10/21 History Mag Hydrox/Al Hydrox/Simeth 15 ml PO TID PRN 05/10/21 05/10/21 History [Maalox] Meloxicam [Mobic] 15 mg PO HS 05/10/21 05/10/21 History Ondansetron HCl [Zofran] 4 mg PO Q8H PRN 05/10/21 05/10/21 History Sertraline [Zoloft] 100 mg PO DAILY 05/10/21 05/10/21 History Sucralfate [Carafate] 1 gm PO AC-TID 05/10/21 05/10/21 History cloNIDine HCL [Catapres] 0.2 mg PO BID 05/10/21 05/10/21 History hydrOXYzine pamoate [Vistaril] 50 mg PO BID 05/10/21 05/10/21 History hydroCHLOROthiazide 50 mg PO HS 05/10/21 05/10/21 History traZODone HCL [Desyrel] 100 mg PO HS 05/10/21 05/10/21 History Allergies Allergy/AdvReac Type Severity Reaction Status Date / Time No Known Allergies Allergy Verified 05/10/21 12:09 Physical Exam Vitals: Vital Signs Temp Pulse Resp BP Pulse Ox 05/11/21 11:00 114 H 20 98 05/11/21 10:45 115 H 20 97 05/11/21 10:30 117 H 20 96 05/11/21 10:15 122 H 20 97 05/11/21 10:00 126 H 20 91/74 97 05/11/21 09:45 125 H 20 78 L 05/11/21 09:30 129 H 20 89/63 97 05/11/21 09:15 129 H 20 91/62 98 05/11/21 09:00 129 H 21 103/74 97 05/11/21 08:45 123 H 25 H 105/74 100 05/11/21 08:30 123 H 21 109/77 100 05/11/21 08:15 123 H 20 112/80 100 05/11/21 08:00 99 F 120 H 24 109/75 100 05/11/21 07:45 122 H 21 96/77 100 05/11/21 07:30 120 H 21 103/68 100 05/11/21 07:00 121 H 20 85/70 100 05/11/21 06:45 124 H 20 93/65 100 05/11/21 06:30 123 H 21 95/70 100 05/11/21 06:15 123 H 20 93/83 100 05/11/21 06:00 120 H 21 90/78 100 05/11/21 05:45 118 H 20 103/69 100 05/11/21 05:30 124 H 21 95/75 100 05/11/21 05:15 121 H 10 L 83/66 99 05/11/21 05:00 123 H 20 96/63 99 05/11/21 04:45 123 H 20 93/61 99 05/11/21 04:30 124 H 20 81/66 99 05/11/21 04:15 123 H 20 92/59 99 05/11/21 04:00 97.9 F 122 H 20 95/72 100 05/11/21 03:45 123 H 20 77/62 100 05/11/21 03:30 124 H 20 80/63 100 05/11/21 03:15 124 H 20 78/63 100 05/11/21 03:00 122 H 20 81/64 100 05/11/21 02:45 120 H 21 85/59 100 05/11/21 02:30 123 H 20 90/69 100 05/11/21 02:15 124 H 24 91/69 100 05/11/21 02:00 122 H 25 H 90/66 100 05/11/21 01:45 121 H 25 H 93/68 100 05/11/21 01:30 120 H 24 94/66 100 05/11/21 01:15 113 H 23 92/68 100 05/11/21 01:00 123 H 25 H 92/74 100 05/11/21 00:45 123 H 25 H 98/59 100 05/11/21 00:41 124 H 25 H 98/59 100 05/11/21 00:30 124 H 24 96/61 100 05/11/21 00:15 122 H 24 88/67 100 05/11/21 00:00 99.1 F 122 H 24 99/64 100 05/10/21 23:45 117 H 24 98/69 99 05/10/21 23:30 114 H 25 H 87/73 99 05/10/21 23:15 111 H 22 97/63 100 05/10/21 23:00 112 H 22 95/71 99 05/10/21 22:45 113 H 23 102/68 99 05/10/21 22:30 112 H 23 96/69 99 05/10/21 22:15 111 H 24 101/67 98 05/10/21 22:00 110 H 23 96/64 97 05/10/21 21:45 112 H 22 89/63 96 05/10/21 21:30 113 H 22 119/93 95 05/10/21 21:15 114 H 20 94/70 91 L 05/10/21 21:00 99.2 F 105 H 20 95/76 93 L 05/10/21 20:45 101 H 20 82/70 92 L 05/10/21 20:30 99 20 104/93 95 05/10/21 20:15 98 20 97/74 97 05/10/21 20:00 98.2 F 98 22 92/75 99 05/10/21 19:45 101 H 20 118/79 100 05/10/21 19:30 105 H 20 116/94 100 05/10/21 19:15 98 20 127/97 97 05/10/21 19:10 100 20 111/63 98 05/10/21 19:00 96.1 F L 102 H 21 114/85 98 05/10/21 16:02 112 H 28 H 122/89 96 05/10/21 14:51 110 H 24 112/90 98 05/10/21 14:27 111 H 20 90/70 97 05/10/21 13:15 105 H 20 105/72 95 Intake and Output 05/10/21 05/11/21 05/11/21 22:59 06:59 14:59 Intake Total 3503.325 4011.868 6059.11 Output Total 770 540 230 Balance 2733.325 2170.821 1317.11 Intake: IV 3450 1350 600 Lactated Ringers 1,000 ml 450 1350 600 @ 150 mls/hr IV .Q6H40M [facility] Rx#:[id number] Intake, IV Titration 53.325 478.019 2618.11 Amount Norepinephrine 4 mg In 20.594 233.406 56.46 Sodium Chloride 0.9% 250 ml @ 0.05 MCG/KG/MIN 19. 01 mls/hr IV .[id number] [facility] Rx#:[id number] Piperacillin-Tazobactam 3 100 .375 gm In Sodium Chloride 0.9% 100 ml @ 25 mls/hr IVPB Q8HR [facility] Rx# :[id number] Sodium Chloride 0.9% 2, 1000 000 ml @ 999 mls/hr IV . Q2H1M [facility] Rx#:[id number] metroNIDAZOLE-NS PMX 500 100 mg In Saline 1 100ml.bag @ 100 mls/hr IVPB Q8HR [facility] Rx#:[id number] propofoL 1,000 mg In 32.731 143.696 56.65 Empty Bag 1 bag @ Titrate IV .Q0M [facility] Rx#: [id number] Output: Drainage 100 180 75 Abdomen 100 180 75 Urine 570 360 155 Estimated Blood Loss 100 Other: Weight 99.79 kg 100 kg ABP, PAP, CO, CI - Last 8 Hours Arterial Blood Pressure 94/61 Arterial Blood Pressure 85/60 Arterial Blood Pressure 83/57 Arterial Blood Pressure 88/56 Arterial Blood Pressure 94/72 Results CBC & Chem 7: 05/12/21 04:24 05/12/21 04:24 Labs: Abnormal Lab Results - Last 24 Hours (Table) 05/10/21 05/10/21 05/10/21 Range/Units 11:41 11:41 11:41 WBC (3.8-10.6) k/uL RBC 6.24 H (4.30-5.90) m/uL Hgb 18.3 H D (13.0-17.5) gm/dL Hct 55.5 H (39.0-53.0) % Plt Count 481 H (150-450) k/uL Neutrophils # (Manual) (1.3-7.7) k/uL Lymphocytes # (Manual) 0.84 L (1.0-4.8) k/uL Metamyelocytes # (Man) 0.16 H (0) k/uL ABG pH (7.35-7.45) ABG pO2 (83-108) mmHg ABG Total CO2 (19-24) mmol/L ABG O2 Saturation (94-97) % Potassium (3.5-5.1) mmol/L Chloride 95 L (98-107) mmol/L Carbon Dioxide 20 L (22-30) mmol/L BUN 24 H (9-20) mg/dL Creatinine 2.66 H (0.66-1.25) mg/dL Glucose 178 H (74-99) mg/dL POC Glucose (mg/dL) (75-99) mg/dL Plasma Lactic Acid Rinku 12.3 H* (0.7-2.0) mmol/L Calcium 10.4 H (8.4-10.2) mg/dL AST 73 H (17-59) U/L ALT (4-49) U/L Troponin I (0.000-0.034) ng/mL Total Protein (6.3-8.2) g/dL Albumin (3.5-5.0) g/dL Amylase 861 H* (30-110) U/L Lipase 5342 H (23-300) U/L Urine Protein (Negative) Urine Glucose (UA) (Negative) Urine Blood (Negative) Urine Bacteria (None) /hpf Hyaline Casts (0-2) /lpf Urine Mucus (None) /hpf 05/10/21 05/10/21 05/10/21 Range/Units 11:41 16:00 19:00 WBC (3.8-10.6) k/uL RBC (4.30-5.90) m/uL Hgb (13.0-17.5) gm/dL Hct (39.0-53.0) % Plt Count (150-450) k/uL Neutrophils # (Manual) (1.3-7.7) k/uL Lymphocytes # (Manual) (1.0-4.8) k/uL Metamyelocytes # (Man) (0) k/uL ABG pH (7.35-7.45) ABG pO2 (83-108) mmHg ABG Total CO2 (19-24) mmol/L ABG O2 Saturation (94-97) % Potassium (3.5-5.1) mmol/L Chloride (98-107) mmol/L Carbon Dioxide (22-30) mmol/L BUN (9-20) mg/dL Creatinine (0.66-1.25) mg/dL Glucose (74-99) mg/dL POC Glucose (mg/dL) 56 L (75-99) mg/dL Plasma Lactic Acid Rinku 6.1 H* (0.7-2.0) mmol/L Calcium (8.4-10.2) mg/dL AST (17-59) U/L ALT (4-49) U/L Troponin I 0.108 H* (0.000-0.034) ng/mL Total Protein (6.3-8.2) g/dL Albumin (3.5-5.0) g/dL Amylase (30-110) U/L Lipase (23-300) U/L Urine Protein (Negative) Urine Glucose (UA) (Negative) Urine Blood (Negative) Urine Bacteria (None) /hpf Hyaline Casts (0-2) /lpf Urine Mucus (None) /hpf 05/10/21 05/10/21 05/10/21 Range/Units 19:40 21:58 22:21 WBC (3.8-10.6) k/uL RBC (4.30-5.90) m/uL Hgb (13.0-17.5) gm/dL Hct (39.0-53.0) % Plt Count (150-450) k/uL Neutrophils # (Manual) (1.3-7.7) k/uL Lymphocytes # (Manual) (1.0-4.8) k/uL Metamyelocytes # (Man) (0) k/uL ABG pH (7.35-7.45) ABG pO2 (83-108) mmHg ABG Total CO2 (19-24) mmol/L ABG O2 Saturation (94-97) % Potassium (3.5-5.1) mmol/L Chloride (98-107) mmol/L Carbon Dioxide (22-30) mmol/L BUN (9-20) mg/dL Creatinine (0.66-1.25) mg/dL Glucose (74-99) mg/dL POC Glucose (mg/dL) 151 H 112 H 121 H (75-99) mg/dL Plasma Lactic Acid Rinku (0.7-2.0) mmol/L Calcium (8.4-10.2) mg/dL AST (17-59) U/L ALT (4-49) U/L Troponin I (0.000-0.034) ng/mL Total Protein (6.3-8.2) g/dL Albumin (3.5-5.0) g/dL Amylase (30-110) U/L Lipase (23-300) U/L Urine Protein (Negative) Urine Glucose (UA) (Negative) Urine Blood (Negative) Urine Bacteria (None) /hpf Hyaline Casts (0-2) /lpf Urine Mucus (None) /hpf 05/11/21 05/11/21 05/11/21 Range/Units 01:44 02:00 03:00 WBC (3.8-10.6) k/uL RBC (4.30-5.90) m/uL Hgb (13.0-17.5) gm/dL Hct (39.0-53.0) % Plt Count (150-450) k/uL Neutrophils # (Manual) (1.3-7.7) k/uL Lymphocytes # (Manual) (1.0-4.8) k/uL Metamyelocytes # (Man) (0) k/uL ABG pH (7.35-7.45) ABG pO2 (83-108) mmHg ABG Total CO2 (19-24) mmol/L ABG O2 Saturation (94-97) % Potassium (3.5-5.1) mmol/L Chloride (98-107) mmol/L Carbon Dioxide (22-30) mmol/L BUN (9-20) mg/dL Creatinine (0.66-1.25) mg/dL Glucose (74-99) mg/dL POC Glucose (mg/dL) 104 H 152 H (75-99) mg/dL Plasma Lactic Acid Rinku (0.7-2.0) mmol/L Calcium (8.4-10.2) mg/dL AST (17-59) U/L ALT (4-49) U/L Troponin I (0.000-0.034) ng/mL Total Protein (6.3-8.2) g/dL Albumin (3.5-5.0) g/dL Amylase (30-110) U/L Lipase (23-300) U/L Urine Protein 1+ H (Negative) Urine Glucose (UA) 1+ H (Negative) Urine Blood Small H (Negative) Urine Bacteria Rare H (None) /hpf Hyaline Casts 5 H (0-2) /lpf Urine Mucus Rare H (None) /hpf 05/11/21 05/11/21 05/11/21 Range/Units 04:03 05:32 06:12 WBC 10.7 H (3.8-10.6) k/uL RBC (4.30-5.90) m/uL Hgb (13.0-17.5) gm/dL Hct (39.0-53.0) % Plt Count (150-450) k/uL Neutrophils # (Manual) 8.80 H (1.3-7.7) k/uL Lymphocytes # (Manual) (1.0-4.8) k/uL Metamyelocytes # (Man) 0.11 H (0) k/uL ABG pH 7.33 L (7.35-7.45) ABG pO2 119 H (83-108) mmHg ABG Total CO2 -22 L (19-24) mmol/L ABG O2 Saturation 98.0 H (94-97) % Potassium (3.5-5.1) mmol/L Chloride (98-107) mmol/L Carbon Dioxide (22-30) mmol/L BUN (9-20) mg/dL Creatinine (0.66-1.25) mg/dL Glucose (74-99) mg/dL POC Glucose (mg/dL) 111 H (75-99) mg/dL Plasma Lactic Acid Rinku (0.7-2.0) mmol/L Calcium (8.4-10.2) mg/dL AST (17-59) U/L ALT (4-49) U/L Troponin I (0.000-0.034) ng/mL Total Protein (6.3-8.2) g/dL Albumin (3.5-5.0) g/dL Amylase (30-110) U/L Lipase (23-300) U/L Urine Protein (Negative) Urine Glucose (UA) (Negative) Urine Blood (Negative) Urine Bacteria (None) /hpf Hyaline Casts (0-2) /lpf Urine Mucus (None) /hpf 05/11/21 Range/Units 07:54 WBC (3.8-10.6) k/uL RBC (4.30-5.90) m/uL Hgb (13.0-17.5) gm/dL Hct (39.0-53.0) % Plt Count (150-450) k/uL Neutrophils # (Manual) (1.3-7.7) k/uL Lymphocytes # (Manual) (1.0-4.8) k/uL Metamyelocytes # (Man) (0) k/uL ABG pH (7.35-7.45) ABG pO2 (83-108) mmHg ABG Total CO2 (19-24) mmol/L ABG O2 Saturation (94-97) % Potassium 5.8 H (3.5-5.1) mmol/L Chloride 112 H (98-107) mmol/L Carbon Dioxide 19 L (22-30) mmol/L BUN 38 H (9-20) mg/dL Creatinine 2.32 H (0.66-1.25) mg/dL Glucose 109 H (74-99) mg/dL POC Glucose (mg/dL) (75-99) mg/dL Plasma Lactic Acid Rinku (0.7-2.0) mmol/L Calcium 7.7 L (8.4-10.2) mg/dL AST 160 H (17-59) U/L ALT 83 H (4-49) U/L Troponin I (0.000-0.034) ng/mL Total Protein 5.0 L (6.3-8.2) g/dL Albumin 2.4 L (3.5-5.0) g/dL Amylase (30-110) U/L Lipase 521 H (23-300) U/L Urine Protein (Negative) Urine Glucose (UA) (Negative) Urine Blood (Negative) Urine Bacteria (None) /hpf Hyaline Casts (0-2) /lpf Urine Mucus (None) /hpf
--- NOTE | 2021-05-12 14:13 | P.PN ---
Subjective Progress Note Date: 05/12/21 CHIEF COMPLAINT: Abdominal pain HISTORY OF PRESENT ILLNESS: Patient is postop day #2 status post repair of internal hernia and partial gastrectomy for internal hernia with obstruction and necrotic stomach. Patient is in the ICU and intubated. Patient has been weaned off of the Levophed. They're working on weaning patient off of the events today. Afebrile WBC 6.4 Hgb 12 creatinine 2.01 NOAH drain with 50 mL output Patient seen and examined with Dr. griffin PHYSICAL EXAM: VITAL SIGNS: Reviewed. GENERAL: Well-developed in no acute distress. HEENT: No sclera icterus. Moist buccal mucosa. Head is atraumatic, normocephalic. ABDOMEN: Soft. Mildly distended. Incisional dressing clean dry and intact. Abdominal binder in place. NOAH drain with serosanguineous output NEUROLOGIC: Intubated and sedated ASSESSMENT: 1. Internal hernia with obstruction and necrotic stomach status post explorat ory laparotomy, repair of internal hernia and partial gastrectomy 2. Pneumoperitoneum PLAN: -Consult dietitian to start TPN for nutrition support -Continue ICU management -Continue supportive care -Continue antibiotics -Continue IV fluids -Continue DVT prophylaxis Lovenox Physician Research Epidemiologist note has been reviewed by physician. Signing provider agrees with the documented findings, assessment, and plan of care. Objective - Vital Signs Vital signs: Vital Signs Temp 99.5 F 05/12/21 12:00 Pulse 93 05/12/21 14:00 Resp 21 05/12/21 14:00 BP 102/65 05/12/21 11:00 Pulse Ox 96 05/12/21 14:00 Intake & Output 05/11/21 05/12/21 05/12/21 18:59 06:59 18:59 Intake Total 4623.857 2503.957 1497.056 Output Total 785 1130 800 Balance 3838.857 1373.957 697.056 Weight 100.5 kg Intake: IV 1650 2022 1289 Lactated Ringers 1,000 ml 1650 1050 @ 150 mls/hr IV .Q6H40M [facility] Rx#:[id number] Lactated Ringers 1,000 ml 900 900 @ 150 mls/hr IV .Q6H40M [facility] Rx#:[id number] Piperacillin-Tazobactam 3 250 .375 gm In Sodium Chloride 0.9% 100 ml @ 25 mls/hr IVPB Q8HR [facility] Rx# :[id number] metroNIDAZOLE-NS PMX 500 100 mg In Saline 1 100ml.bag @ 100 mls/hr IVPB Q8HR [facility] Rx#:[id number] pressure bag 72 39 Intake, IV Titration 2973.857 481.957 208.056 Amount Dexmedetomidine/0.9% NaCl 28.350 (Pmx) 400 mcg In Empty Bag 1 bag @ 0.2 MCG/KG/HR 5.025 mls/hr IV .[id number] [facility] Rx#:[id number] Norepinephrine 4 mg In 254.507 202.457 2.788 Sodium Chloride 0.9% 250 ml @ 0.05 MCG/KG/MIN 19. 01 mls/hr IV .[id number] [facility] Rx#:[id number] Piperacillin-Tazobactam 3 200 .375 gm In Sodium Chloride 0.9% 100 ml @ 25 mls/hr IVPB Q8HR [facility] Rx# :[id number] Sodium Chloride 0.9% 2, 2000 000 ml @ 999 mls/hr IV . Q2H1M [facility] Rx#:[id number] metroNIDAZOLE-NS PMX 500 200 mg In Saline 1 100ml.bag @ 100 mls/hr IVPB Q8HR [facility] Rx#:[id number] propofoL 1,000 mg In 319.35 279.5 176.918 Empty Bag 1 bag @ Titrate IV .Q0M [facility] Rx#: [id number] Output: Drainage 275 250 100 Abdomen 275 250 100 Urine 510 880 700 Other: Voiding Method Indwelling Catheter Indwelling Catheter Indwelling Catheter ABP, PAP, CO, CI - Last Documented Arterial Blood Pressure 114/67 - Labs CBC & Chem 7: 05/12/21 04:24 05/12/21 04:24 Labs: Abnormal Lab Results - Last 24 Hours (Table) 05/11/21 05/11/21 05/12/21 Range/Units 18:12 22:49 04:24 RBC 3.98 L (4.30-5.90) m/uL Hgb 12.0 L D (13.0-17.5) gm/dL Hct 36.2 L (39.0-53.0) % Lymphocytes # (Manual) 0.32 L (1.0-4.8) k/uL ABG pO2 (83-108) mmHg ABG Total CO2 (19-24) mmol/L ABG O2 Saturation (94-97) % Chloride (98-107) mmol/L Carbon Dioxide (22-30) mmol/L BUN (9-20) mg/dL Creatinine (0.66-1.25) mg/dL Glucose (74-99) mg/dL POC Glucose (mg/dL) 110 H 126 H (75-99) mg/dL Calcium (8.4-10.2) mg/dL AST (17-59) U/L Total Protein (6.3-8.2) g/dL Albumin (3.5-5.0) g/dL 05/12/21 05/12/21 05/12/21 Range/Units 04:24 05:23 11:19 RBC (4.30-5.90) m/uL Hgb (13.0-17.5) gm/dL Hct (39.0-53.0) % Lymphocytes # (Manual) (1.0-4.8) k/uL ABG pO2 131 H (83-108) mmHg ABG Total CO2 25 H (19-24) mmol/L ABG O2 Saturation 98.5 H (94-97) % Chloride 112 H (98-107) mmol/L Carbon Dioxide 21 L (22-30) mmol/L BUN 38 H (9-20) mg/dL Creatinine 2.01 H (0.66-1.25) mg/dL Glucose 119 H (74-99) mg/dL POC Glucose (mg/dL) 111 H (75-99) mg/dL Calcium 7.3 L (8.4-10.2) mg/dL AST 102 H (17-59) U/L Total Protein 4.2 L (6.3-8.2) g/dL Albumin 2.0 L (3.5-5.0) g/dL Microbiology - Last 24 Hours (Table) 05/11/21 15:56 Blood Culture Gram Stain - Preliminary Blood 05/11/21 15:56 Blood Culture - Final Blood 05/11/21 Unknown Gram Stain - Preliminary Sputum Sputum Culture - Preliminary
[2021-05-12] MEDS ORDERED: VANCOMYCIN IV PER PHARMACY 1 EACH MISC MISCELLANE PRN (15:23)
[2021-05-12] MEDS ORDERED: VANCOMYCIN 1,750 MG in SODIUM CHLORIDE 0.9% 500 ML 500 ML IVPB SCH (16:00)
[2021-05-12 16:38] LABS: Magnesium 3.3 mg/dL (1.6-2.3); Phosphorus 4.9 mg/dL (2.5-4.5)
[2021-05-12 17:34] LABS: Glucose,Whole Blood 92 mg/dL (75-99)
--- NOTE | 2021-05-12 18:17 | PN ---
PROGRESS NOTE DATE OF SERVICE: 05/12/2021 REASON FOR FOLLOWUP: 1. Abdominal sepsis. 2. Positive blood culture. INTERVAL HISTORY: The patient is afebrile. The patient has been extubated. The patient is currently breathing comfortably on 4 L nasal cannula. He is lethargic, unable to provide any history. No vomiting, diarrhea. No changes reported by the nursing staff. PHYSICAL EXAMINATION: Blood pressure is 111/85, pulse of 89, temperature 98.6. He is 98% on 4 L nasal cannula. General description is a middle-aged male lying in bed in no distress. Respiratory system: Unlabored breathing, decreased intensity of breath sounds. No wheeze. Heart S1, S2. Regular rate and rhythm. Abdomen: Soft, mildly distended. No guarding, rigidity. NOAH drainage is mostly serosanguineous secretion. Extremities: No edema of the feet. LABS: Hemoglobin is 12, white count 6.4, creatinine 2.01. Blood cultures with coagulase- negative Staph. Sputum culture is pending. DIAGNOSTIC IMPRESSION AND PLAN: 1. Patient with abdominal sepsis with incarcerated hernia with necrotic stomach, status post partial gastrectomy. Patient is covered with Zosyn and Diflucan will be continued. 2. Positive blood culture coagulase negative Staph, likely skin contaminant with borderline kidney function high risk of nephrotoxicity. Vancomycin will be discontinued. MMODL / IJN: [id number] /
[2021-05-12] MEDS ORDERED: MVI, ADULT NO.4 WITH VIT K 10 ML, TRACE (CONC-1ML/DOSE) 1 ML, SODIUM CHLORIDE 4MEQ/ML V... IV SCH ×5 (20:00)
[2021-05-12] MEDS: FLUCONAZOLE IN NACL,ISO-OSM 400 MG in SALINE 1 200ML.BAG IVPB SCH (21:24)
--- NOTE | 2021-05-12 22:44 | P.PN ---
Subjective Progress Note Date: 05/12/21 Patient is a 41-year-old male with a known history of hypertension, history of bariatric surgery and hernia repair and PTSD and previous history of smoking presents to ER with complaints of severe abdominal pain and vomiting. [facility] Patient was seen in the ER on 05/09/2020 and presented back to the hospital with complaints of abdominal pain. Patient underwent gastric bypass surgery in [place] and had similar complaints of pain and was diagnosed with internal hernia. CT abdomen pelvis showed pneumoperitoneum interval development of free fluid within the abdomen consistent with probable bowel perforation and obstruction as previously reported. Chest x-ray showed low lung volumes with the left greater than right bilateral linear scarring and atelectasis. Patient underwent repair of ventral hernia and partial gastrectomy. He was transferred to MICU. Patient is currently mechanical ventilator and intubated. Sedated and paralyzed. Laboratory data showed WBC 4.0 hemoglobin 18.3 and platelets 481 BUN 24 and creatinine 2.66 Lactic acid 12.3 on admission calcium 10.4 troponin 0 0.108 Amylase 861 lipase 5 07/10/2019 COVID-19 PCR not detected 05/12/2021 Patient is status post exploratory laparotomy, bowel resection and gastric resection. Postoperative day 2. Patient is in the MICU. Currently intubated and on mechanical ventilator. Assist control with a tidal volume 500, respiratory rate 20 and FiO2 40% PEEP of 5. On pressor support with Levophed. Which is being tapered down. Patient is being continued on antibiotics in the form of Zosyn Flagyl and Diflucan. Chest x-ray today showed continued small to moderate left pleural effusion with left b asilar and retrocardiac atelectasis and/or consolidation. Mild patchy opacification at the right lower lung slightly increased. Laboratory data showed WBC 6.4 hemoglobin 12.0 and platelets 259 Sodium 138 potassium 4.3 chloride 112 bicarb is 21 BUN 38 and creatinine 2.01, calcium 7.3 phosphorus 4.9 and magnesium 3.3 albumin 2.0. Blood culture showed gram-negative staph aureus. Likely contaminant. Review of systems could not be obtained from the patient. Current medications reviewed. Objective - Vital Signs Vital signs: Vital Signs Temp 98.6 F 05/12/21 16:00 Pulse 89 05/12/21 19:00 Resp 11 L 05/12/21 19:00 BP 102/65 05/12/21 11:00 Pulse Ox 94 L 05/12/21 19:00 Intake & Output 05/12/21 05/12/21 05/13/21 06:59 18:59 06:59 Intake Total 2503.957 2685.679 168.523 Output Total 1130 1150 100 Balance 0250.970 8358.679 68.523 Weight 100.5 kg 100.5 kg Intake: IV 2021 2453 156 Lactated Ringers 1,000 ml 1050 @ 150 mls/hr IV .Q6H40M [facility] Rx#:[id number] Lactated Ringers 1,000 ml 900 1340 150 @ 150 mls/hr IV .Q6H40M [facility] Rx#:[id number] Piperacillin-Tazobactam 3 350 .375 gm In Sodium Chloride 0.9% 100 ml @ 25 mls/hr IVPB Q8HR [facility] Rx# :[id number] Vancomycin 1,750 mg In 500 Sodium Chloride 0.9% 500 ml 500 ml @ 167 mls/hr IVPB Q24H [facility] Rx#: [id number] metroNIDAZOLE-NS PMX 500 200 mg In Saline 1 100ml.bag @ 100 mls/hr IVPB Q8HR [facility] Rx#:[id number] pressure bag 72 63 6 Intake, IV Titration 481.957 232.679 12.523 Amount Dexmedetomidine/0.9% NaCl 52.973 12.523 (Pmx) 400 mcg In Empty Bag 1 bag @ 0.2 MCG/KG/HR 5.025 mls/hr IV .[id number] [facility] Rx#:[id number] Norepinephrine 4 mg In 202.457 2.788 Sodium Chloride 0.9% 250 ml @ 0.05 MCG/KG/MIN 19. 01 mls/hr IV .[id number] [facility] Rx#:[id number] propofoL 1,000 mg In 279.5 176.918 Empty Bag 1 bag @ Titrate IV .Q0M [facility] Rx#: [id number] Output: Drainage 250 100 Abdomen 250 100 Urine 880 1050 100 Other: Voiding Method Indwelling Catheter Indwelling Catheter ABP, PAP, CO, CI - Last Documented Arterial Blood Pressure 106/75 - Exam PHYSICAL EXAMINATION: Patient is currently lying in the bed. Sedated. Intubated and on mechanical ventilator... HEENT: Normocephalic. Neck is supple. Pupils reactive. Nostrils clear. Oral cavity is moist. Neck reveals no JVD, carotid bruits, or thyromegaly. CHEST EXAMINATION: Trachea is central. Symmetrical expansion. Lung brown clear to auscultation and percussion. CARDIAC: Normal S1, S2 with no gallops. No murmurs ABDOMEN: Soft. Abdominal binder in place., Bowel sounds diminished.. No abdominal bruits. Extremities: reveal no edema. No clubbing or cyanosis Neurologically Intubated and on mechanical ventilator. No gross focal deficits noted Skin: No rash or skin lesions. Psychiatric: Could not be assessed completely. Musculoskeletal: No joint swelling or deformity. - Labs CBC & Chem 7: 05/12/21 04:24 05/12/21 04:24 Labs: Abnormal Lab Results - Last 24 Hours (Table) 05/11/21 05/12/21 05/12/21 Range/Units 22:49 04:24 04:24 RBC 3.98 L (4.30-5.90) m/uL Hgb 12.0 L D (13.0-17.5) gm/dL Hct 36.2 L (39.0-53.0) % Lymphocytes # (Manual) 0.32 L (1.0-4.8) k/uL ABG pO2 (83-108) mmHg ABG Total CO2 (19-24) mmol/L ABG O2 Saturation (94-97) % Chloride 112 H (98-107) mmol/L Carbon Dioxide 21 L (22-30) mmol/L BUN 38 H (9-20) mg/dL Creatinine 2.01 H (0.66-1.25) mg/dL Glucose 119 H (74-99) mg/dL POC Glucose (mg/dL) 126 H (75-99) mg/dL Calcium 7.3 L (8.4-10.2) mg/dL Phosphorus (2.5-4.5) mg/dL Magnesium (1.6-2.3) mg/dL AST 102 H (17-59) U/L Total Protein 4.2 L (6.3-8.2) g/dL Albumin 2.0 L (3.5-5.0) g/dL 05/12/21 05/12/2105/12/22 Range/Units 04:24 05:23 11:19 RBC (4.30-5.90) m/uL Hgb (13.0-17.5) gm/dL Hct (39.0-53.0) % Lymphocytes # (Manual) (1.0-4.8) k/uL ABG pO2 131 H (83-108) mmHg ABG Total CO2 25 H (19-24) mmol/L ABG O2 Saturation 98.5 H (94-97) % Chloride (98-107) mmol/L Carbon Dioxide (22-30) mmol/L BUN (9-20) mg/dL Creatinine (0.66-1.25) mg/dL Glucose (74-99) mg/dL POC Glucose (mg/dL) 111 H (75-99) mg/dL Calcium (8.4-10.2) mg/dL Phosphorus 4.9 H (2.5-4.5) mg/dL Magnesium 3.3 H (1.6-2.3) mg/dL AST (17-59) U/L Total Protein (6.3-8.2) g/dL Albumin (3.5-5.0) g/dL Microbiology - Last 24 Hours (Table) 05/11/21 15:56 Blood Culture Gram Stain - Preliminary Blood Blood Culture - Preliminary Coagulase Negative Staph 05/11/21 Unknown Gram Stain - Preliminary Sputum Sputum Culture - Preliminary 05/11/21 12:00 Blood Culture - Preliminary Blood No Growth after 24 hours 05/11/21 15:56 Blood Culture - Final Blood Assessment and Plan Assessment: Bowel perforation due to gastric ischemia and necrosis. Status post exploratory laparotomy and repair of ventral hernia and partial gastrectomy. Postoperative day 2. Acute kidney injury due to ATN, cr 2.66-->2.01 Hyperkalemia secondary to acute kidney injury. resolved Mild transaminitis Elevated lipase level Hypertension History of smoking Previous history of gastric bypass surgery and history of ventral hernia.. DVT prophylaxis. With Lovenox subcu. plan: Patient is currently in MICU. On mechanical ventilator. Levophed is being tapered off. Weaning trial as per pulmonary. Continue with IV hydration, broad-spectrum antibiotics in the form of Zosyn, Flagyl and fluconazole. Follow culture reports. Monitor renal function closely. Pulmonary, ID and general surgery is on board. will continue to follow closely and further recommendations based on clinical course. Prognosis is guarded at this time. Time with Patient: Greater than 30
[2021-05-13 00:08] LABS: Glucose,Whole Blood 114 mg/dL (75-99)
[2021-05-13] MEDS: metroNIDAZOLE-NS PMX 500 MG in SALINE 1 100ML.BAG IVPB SCH ×4 (00:38→23:56)
[2021-05-13] MEDS: HYDROmorphone 1 MG/ML 1 ML SYRINGE IVP PRN ×5 (00:51→21:20)
[2021-05-13 05:17] LABS: Basophils % (A) 0 %; Eosinophils # (A) 0.1 k/uL (0-0.7); Eosinophils % (A) 1 %; Lymphocytes # (A) 0.6 k/uL (1.0-4.8); Lymphocytes % (A) 9 %; MCH 29.6 pg (25.0-35.0); MCHC 33.2 g/dL (31.0-37.0); Mean Platelet Volume 7.8; Monocytes # (A) 0.2 k/uL (0-1.0); Monocytes % (A) 3 %; Neutrophils # (A) 5.8 k/uL (1.3-7.7); Neutrophils % (A) 85 %; Platelet Count 197 k/uL (150-450); RBC 3.37 m/uL (4.30-5.90); RDW 14.3 % (11.5-15.5); WBC 6.8 k/uL (3.8-10.6)
[2021-05-13 05:41] LABS: Magnesium 2.5 mg/dL (1.6-2.3); Phosphorus 2.3 mg/dL (2.5-4.5)
[2021-05-13 06:18] LABS: Ionized Calcium 4.9 mg/dL (4.5-5.3)
[2021-05-13 06:33] LABS: Albumin 1.9 g/dL (3.5-5.0); Calcium 7.4 mg/dL (8.4-10.2); Potassium 3.5 mmol/L (3.5-5.1); Total Bilirubin 0.7 mg/dL (0.2-1.3); Total Protein 4.2 g/dL (6.3-8.2)
[2021-05-13] MEDS ORDERED: POTASSIUM PHOSPHATE 12 MMOL in SODIUM CHLORIDE 0.9% 100 ML IV ONE (09:00)
[2021-05-13] MEDS: LACTATED RINGERS 1,000 ML IV SCH ×3 (09:08→14:28)
[2021-05-13] MEDS: PIPERACILLIN-TAZOBACTAM 3.375 GM in SODIUM CHLORIDE 0.9% 100 ML IVPB SCH ×3 (09:08→16:25)
[2021-05-13] MEDS: NOREPINEPHRINE 4 MG in SODIUM CHLORIDE 0.9% 250 ML IV SCH ×2 (09:09→16:06)
[2021-05-13] MEDS: ENOXAPARIN 40 MG/0.4 ML SYRINGE SQ SCH (09:10)
--- NOTE | 2021-05-13 09:47 | P.PN ---
Subjective Progress Note Date: 05/13/21 Principal diagnosis: Respiratory failure. Pulmonary/critical care consult dated 05/11/2021. A 41-year-old incarcerated male, seen in the emergency department on May 10, for abdominal pain, and vomiting. The patient was seen in the emergency department the day before, evaluated, and discharged back to the intermediate. The patient apparently had a gastric bypass a couple years ago, and [place]. Anyway, the patient was evaluated again, and found to have a necrotic stomach, surgery, including a exploratory laparotomy, gastrectomy, and repair of internal hernia. The patient was returned back to the intensive care unit, on the mechanical ventilator. He is on the volume assist control mode, rate of 20, tidal volume 500, FiO2 50%, and PEEP of 5. Blood gases show pO2 119, pCO2 40, and a pH is 7.33. He is currently postop day #1. He is getting lactated Ringer's at 150 mL an hour, norepinephrine at 8 mcg/m, and propofol 50 mcg/kg/m. He is currently not on any antibiotics. We start Zosyn and Flagyl. In addition, we place a right brachial heart line, and a left internal jugular triple-lumen catheter. Apparently, the patient's only past medical history includes hypertension, the gastric bypass surgery, and hernia repair. White count 10.7, hemoglobin 15.9, hematocrit 48.2, platelet count 324,000. Sodium 142, potassium 5.8, chlorides 112, CO2 19, anion gap 11, BUN 38, and creatinine 2.32. AST 160, with an ALT of 83. Lipase is 521. Chest x-ray shows consolid ation and/or effusion/atelectasis, at the left lung base. Progress note dated 05/12/2021. 41-year-old male, seen yesterday in consultation. He was seen in the emergency department initially on May 10 for abdominal pain and vomiting. He was seen the day before in the ER, and discharged back to the intermediate. The patient was found to have a necrotic stomach, perforated viscus, and underwent a exploratory laparotomy, gastrectomy, and repair of internal hernia. The patient was transferred back to the intensive care unit, on the ventilator. He is postop day #2. Currently, he's on volume assist control, rate 20, tidal volume 500, FiO2 40%, and he will be reduced to 30%, and a PEEP of 5. Arterial blood gases show pO2 of 131, pCO2 42, and pH is 7.36. The patient is getting lactated Ringer's at 50 mL an hour, propofol at 55 mcg/kg/m, norepinephrine, which has been weaned off. In addition, the patient is on Zosyn and Flagyl. The patient will have a daily interruption of sedation today, and a spontaneous breathing trial. I've asked the nurse to wean off the propofol, and use dexmedetomidine for sedation necessary. White count 6.4, hemoglobin 12, hematocrit 36.2, and platelet count 259,000. Sodium 138, potassium 4.7, chlorides 112, CO2 21, anion gap 5, BUN 38 and creatinine 2.01. AST was 102. Albumin was 2. Chest x-ray shows a small left pleural effusion, with some left basilar retrocardiac atelectasis. There is also some patchy infiltrate or atelectasis at the right base. Microbiologic studies are thus far negative. Progress note dated 05/13/2021. 41-year-old male, who was extubated from mechanical ventilation yesterday. He is postop day #3. Currently, he is on 5 L nasal cannula. He is getting TPN at 43 mL an hour, Precedex at 1 mcg/kg/h, and lactated Ringer's at 150 mL an hour. White count 6.8, hemoglobin 10, hematocrit 30, and platelet count 197,000. S odium 140, potassium 3.5, chlorides 111, CO2 25, anion gap 4, BUN 26, creatinine 1.32. Blood cultures are positive for coag-negative staph, from May 11. No chest x-ray was done today. The patient's currently on Zosyn and Flagyl. Objective - Vital Signs Vital signs: Vital Signs Temp 98.9 F 05/13/21 01:00 Pulse 98 05/13/21 08:00 Resp 24 05/13/21 08:00 BP 91/74 05/13/21 05:00 Pulse Ox 94 L 05/13/21 08:00 Intake & Output 05/12/21 05/13/21 05/13/21 18:59 06:59 18:59 Intake Total 2685.679 2826.923 397.6 Output Total 1150 1580 135 Balance 6441.092 4947.923 262.6 Weight 100.5 kg 108.8 kg Intake: IV 2453 2814.4 397.6 Lactated Ringers 1,000 ml 1340 1800 300 @ 150 mls/hr IV .Q6H40M [facility] Rx#:[id number] MVI 342.4 85.6 Piperacillin-Tazobactam 3 350 .375 gm In Sodium Chloride 0.9% 100 ml @ 25 mls/hr IVPB Q8HR [facility] Rx# :[id number] Vancomycin 1,750 mg In 500 500 Sodium Chloride 0.9% 500 ml 500 ml @ 167 mls/hr IVPB Q24H [facility] Rx#: [id number] metroNIDAZOLE-NS PMX 500 200 100 mg In Saline 1 100ml.bag @ 100 mls/hr IVPB Q8HR [facility] Rx#:[id number] pressure bag 63 72 12 Intake, IV Titration 232.679 12.523 Amount Dexmedetomidine/0.9% NaCl 52.973 12.523 (Pmx) 400 mcg In Empty Bag 1 bag @ 0.2 MCG/KG/HR 5.025 mls/hr IV .[id number] [facility] Rx#:[id number] Norepinephrine 4 mg In 2.788 Sodium Chloride 0.9% 250 ml @ 0.05 MCG/KG/MIN 19. 01 mls/hr IV .[id number] [facility] Rx#:[id number] propofoL 1,000 mg In 176.918 Empty Bag 1 bag @ Titrate IV .Q0M [facility] Rx#: [id number] Output: Drainage 100 55 Abdomen 100 55 Urine 1050 1525 135 Other: Voiding Method Indwelling Catheter Indwelling Catheter Indwelling Catheter ABP, PAP, CO, CI - Last Documented Arterial Blood Pressure 154/89 - Exam No acute distress, extubated, on nasal O2 at 5 L. HEENT examination is grossly unremarkable. Neck supple. Full range of motion. No adenopathy thyromegaly or neck vein distention. Cardiovascular examination reveals regular rhythm rate. S1-S2 normal. No S3 or S4. No discernible murmur noted. Heart rate 98 bpm. Lungs reveal scattered bilateral rhonchi and no wheezes. No crackles. Breath s ounds equal bilaterally. Saturations are 94%. Abdomen soft, without bowel sounds. Drainage catheters are noted. Extremities are intact. No cyanosis clubbing or edema. Skin is without rash or lesion. The patient is very diaphoretic. Neurologic examination reveals a patient who is a bit lethargic still. Certainly much improved neurologically. Moves all 4 extremities. - Labs CBC & Chem 7: 05/13/21 04:45 05/13/21 04:45 Labs: Abnormal Lab Results - Last 24 Hours (Table) 05/12/21 05/12/21 05/13/21 Range/Units 04:24 11:19 00:05 RBC (4.30-5.90) m/uL Hgb (13.0-17.5) gm/dL Hct (39.0-53.0) % Lymphocytes # (1.0-4.8) k/uL Chloride (98-107) mmol/L BUN (9-20) mg/dL Creatinine (0.66-1.25) mg/dL Glucose (74-99) mg/dL POC Glucose (mg/dL) 111 H 114 H (75-99) mg/dL Calcium (8.4-10.2) mg/dL Phosphorus 4.9 H (2.5-4.5) mg/dL Magnesium 3.3 H (1.6-2.3) mg/dL AST (17-59) U/L Total Protein (6.3-8.2) g/dL Albumin (3.5-5.0) g/dL 05/13/21 05/13/21 05/13/21 Range/Units 04:45 04:45 04:45 RBC 3.37 L (4.30-5.90) m/uL Hgb 10.0 L D (13.0-17.5) gm/dL Hct 30.0 L (39.0-53.0) % Lymphocytes # 0.6 L (1.0-4.8) k/uL Chloride 111 H (98-107) mmol/L BUN 26 H (9-20) mg/dL Creatinine 1.32 H (0.66-1.25) mg/dL Glucose 111 H (74-99) mg/dL POC Glucose (mg/dL) (75-99) mg/dL Calcium 7.4 L (8.4-10.2) mg/dL Phosphorus 2.3 L (2.5-4.5) mg/dL Magnesium 2.5 H (1.6-2.3) mg/dL AST 150 H (17-59) U/L Total Protein 4.2 L (6.3-8.2) g/dL Albumin 1.9 L (3.5-5.0) g/dL Microbiology - Last 24 Hours (Table) 05/11/21 15:56 Blood Culture Gram Stain - Preliminary Blood Blood Culture - Preliminary Coagulase Negative Staph 05/11/21 Unknown Gram Stain - Preliminary Sputum Sputum Culture - Preliminary 05/11/21 12:00 Blood Culture - Preliminary Blood No Growth after 24 hours 05/11/21 15:56 Blood Culture - Final Blood Assessment and Plan Assessment: Postop day #3, status post exploratory laparotomy, gastrectomy, and repair of internal hernia, secondary to gastric ischemia and necrosis. Routine postoperative ventilator management, status post successful extubation on 05/12/2020. Acute kidney injury. History of hypertension. Prior history of tobacco use. Prior history of gastric bypass for obesity. Plan: Plan dated 05/11/2021. The patient will get some additional fluids. We'll give the patient 2 L of saline. In addition, the patient be started on antibiotics in the form of Zosyn and Flagyl. In addition, the patient will continue on norepinephrine. In addition, the patient will continue on propofol. An arterial line and triple lumen catheter replaced. Additional recommendations and suggestions are forthcoming. Prognosis is guarded. We will continue to follow make recomm endations where appropriate. Plan dated 05/12/2021. The patient is going to be given a daily interruption of sedation and a spontaneous breathing trial today. I told the nurse to wean him off the p ropofol, and use dexmedetomidine for sedation or agitation. The patient has been weaned off the norepinephrine. Labs are reviewed. Medications are reviewed. We will continue to follow and make recommendations where appropriate. Prognosis is guarded. Chest x-ray does show some patchy bibasilar infiltrates and/or atelectasis, and a relatively small left-sided pleural effusion. We will continue to monitor this. Plan dated 05/13/2021. The patient was successfully extubated yesterday. That was on 05/12/2021. Today's postop day #3. We will attempt to wean the dexmedetomidine off. We did order labs and x-rays for tomorrow. In addition, I recommend an incentive spirometer, to be used hourly. Additional recommendations and suggestions are forthcoming. The patient's getting TPN at 43 mL an hour. IV fluids are turned down to 50 mL an hour. We will continue to follow make recommendations where appropriate. Overall prognosis is very guarded. Time with Patient: Greater than 30
[2021-05-13] MEDS: ONDANSETRON 4 MG/2 ML VIAL IVP PRN (13:30)
--- NOTE | 2021-05-13 13:30 | P.PN ---
Subjective Progress Note Date: 05/13/21 CHIEF COMPLAINT: Abdominal pain HISTORY OF PRESENT ILLNESS: Patient is postop day #3 status post repair of internal hernia and partial gastrectomy for internal hernia with obstruction and necrotic stomach. Patient remains in the ICU. He was extubated yesterday. He is lying in bed comfortably. TPN has been started for nutrition support. Afebrile. WBC is 6.8 hemoglobin has dry from 12-10 platelets are 197 creatinine 1.32. One positive blood culture with coagulase negative staph likely skin contaminant. Seen by infectious disease. Patient seen and examined with Dr. griffin PHYSICAL EXAM: VITAL SIGNS: Reviewed. GENERAL: Well-developed in no acute distress. HEENT: No sclera icterus. Moist buccal mucosa. Head is atraumatic, normocephalic. ABDOMEN: Soft. Mildly distended. Incisional dressing clean dry and intact. Abdominal binder in place. NOAH drain with serosanguineous output NEUROLOGIC: Awake but sleepy ASSESSMENT: 1. Internal hernia with obstruction and necrotic stomach status post exploratory laparotomy, repair of internal hernia and partial gastrectomy 2. Pneumoperitoneum PLAN: -Continue ICU management -Continue supportive care -Continue antibiotics -Continue IV fluids -Continue TPN for nutrition support -Continue DVT prophylaxis Lovenox Physician Rn Support Services note has been reviewed by physician. Signing provider agrees with the documented findings, assessment, and plan of care. Objective - Vital Signs Vital signs: Vital Signs Temp 98.9 F 05/13/21 01:00 Pulse 96 05/13/21 11:00 Resp 23 05/13/21 11:00 BP 91/74 05/13/21 11:00 Pulse Ox 94 L 05/13/21 08:30 Intake & Output 05/12/21 05/13/21 05/13/21 18:59 06:59 18:59 Intake Total 2685.679 2826.923 999.741 Output Total 1150 1580 905 Balance 6883.173 3883.923 94.741 Weight 100.5 kg 108.8 kg Intake: IV 2453 2814.4 962.8 Lactated Ringers 1,000 ml 1340 1800 670 @ 50 mls/hr IV .Q20H [facility] Rx#:[id number] MVI 342.4 256.8 Piperacillin-Tazobactam 3 350 .375 gm In Sodium Chloride 0.9% 100 ml @ 25 mls/hr IVPB Q8HR [facility] Rx# :[id number] Vancomycin 1,750 mg In 500 500 Sodium Chloride 0.9% 500 ml 500 ml @ 167 mls/hr IVPB Q24H [facility] Rx#: [id number] metroNIDAZOLE-NS PMX 500 200 100 mg In Saline 1 100ml.bag @ 100 mls/hr IVPB Q8HR [facility] Rx#:[id number] pressure bag 63 72 36 Intake, IV Titration 232.679 12.523 36.941 Amount Dexmedetomidine/0.9% NaCl 52.973 12.523 36.941 (Pmx) 400 mcg In Empty Bag 1 bag @ 0.2 MCG/KG/HR 5.025 mls/hr IV .[id number] [facility] Rx#:[id number] Norepinephrine 4 mg In 2.788 Sodium Chloride 0.9% 250 ml @ 0.05 MCG/KG/MIN 19. 01 mls/hr IV .[id number] [facility] Rx#:[id number] propofoL 1,000 mg In 176.918 Empty Bag 1 bag @ Titrate IV .Q0M [facility] Rx#: [id number] Output: Drainage 100 55 Abdomen 100 55 Urine 1050 1525 905 Other: Voiding Method Indwelling Catheter Indwelling Catheter Indwelling Catheter ABP, PAP, CO, CI - Last Documented Arterial Blood Pressure 151/87 - Labs CBC & Chem 7: 05/13/21 04:45 05/13/21 04:45 Labs: Abnormal Lab Results - Last 24 Hours (Table) 05/12/21 05/13/21 05/13/21 Range/Units 04:24 00:05 04:45 RBC 3.37 L (4.30-5.90) m/uL Hgb 10.0 L D (13.0-17.5) gm/dL Hct 30.0 L (39.0-53.0) % Lymphocytes # 0.6 L (1.0-4.8) k/uL Chloride (98-107) mmol/L BUN (9-20) mg/dL Creatinine (0.66-1.25) mg/dL Glucose (74-99) mg/dL POC Glucose (mg/dL) 114 H (75-99) mg/dL Calcium (8.4-10.2) mg/dL Phosphorus 4.9 H (2.5-4.5) mg/dL Magnesium 3.3 H (1.6-2.3) mg/dL AST (17-59) U/L Total Protein (6.3-8.2) g/dL Albumin (3.5-5.0) g/dL Triglycerides (0.00-149.00) mg/dL 05/13/21 05/13/21 Range/Units 04:45 04:45 RBC (4.30-5.90) m/uL Hgb (13.0-17.5) gm/dL Hct (39.0-53.0) % Lymphocytes # (1.0-4.8) k/uL Chloride 111 H (98-107) mmol/L BUN 26 H (9-20) mg/dL Creatinine 1.32 H (0.66-1.25) mg/dL Glucose 111 H (74-99) mg/dL POC Glucose (mg/dL) (75-99) mg/dL Calcium 7.4 L (8.4-10.2) mg/dL Phosphorus 2.3 L (2.5-4.5) mg/dL Magnesium 2.5 H (1.6-2.3) mg/dL AST 150 H (17-59) U/L Total Protein 4.2 L (6.3-8.2) g/dL Albumin 1.9 L (3.5-5.0) g/dL Triglycerides 770.00 H (0.00-149.00) mg/dL Microbiology - Last 24 Hours (Table) 05/11/21 15:56 Blood Culture Gram Stain - Preliminary Blood Blood Culture - Preliminary Coagulase Negative Staph 05/11/21 Unknown Gram Stain - Preliminary Sputum Sputum Culture - Preliminary 05/11/21 12:00 Blood Culture - Preliminary Blood No Growth after 24 hours 05/11/21 15:56 Blood Culture - Final Blood
[2021-05-13] MEDS ORDERED: ACETAMINOPHEN IV (For NPO) 1,000 MG in EMPTY BAG 1 BAG IVPB PRN (14:24)
--- NOTE | 2021-05-13 14:32 | XR ---
EXAMINATION TYPE: XR chest 1V DATE OF EXAM: 05/13/2021 COMPARISON: Chest x-ray same dated earlier time HISTORY: NG tube placement TECHNIQUE: Single frontal view of the chest is obtained. FINDINGS: NG tube appears folded in the upper chest and cervical esophagus region, distal tip is not advanced. No other significant interval change. IMPRESSION: NG tube is not advanced. Tube is folded within the neck and upper chest.
--- NOTE | 2021-05-13 14:35 | XR ---
EXAMINATION TYPE: XR chest 1V DATE OF EXAM: 05/13/2021 COMPARISON: 05/13/2021 HISTORY: 41-year-old male NG tube placement TECHNIQUE: Single frontal view of the chest is obtained. FINDINGS: Interval repositioning of the NG tube. The tip is now along the lower third thorax. Low lung volumes. Heart is enlarged. Focal left basilar opacity and diffuse interstitial densities persist. Left CVC t ip in the right atrium. Surgical clips in the upper abdomen. Surgical drain in the left upper quadran t and skin ariel. IMPRESSION: 1. NG tube tip at the lower third thorax. It would need to be further advanced by 13.5 cm so that the side hole clears the GE junction. Clinically correlate as to how much the tube should be advanced gi angélica the patient's Yolanda-en-Y gastric bypass. 2. Otherwise, stable exam with hypoventilatory changes, diffuse interstitial densities, and focal lef t basilar opacity.
[2021-05-13 18:30] LABS: Glucose,Whole Blood 128 mg/dL (75-99)
[2021-05-13] MEDS: DEXMEDETOMIDINE/0.9% NACL(PMX) 400 MCG in EMPTY BAG 1 BAG IV SCH (18:35)
[2021-05-13] MEDS ORDERED: MVI, ADULT NO.4 WITH VIT K 10 ML, TRACE (CONC-1ML/DOSE) 1 ML, SODIUM CHLORIDE 4MEQ/ML V... IV SCH ×5 (21:00)
[2021-05-13] MEDS: FLUCONAZOLE IN NACL,ISO-OSM 400 MG in SALINE 1 200ML.BAG IVPB SCH (21:37)
--- NOTE | 2021-05-13 23:51 | PN ---
PROGRESS NOTE DATE OF SERVICE: 05/13/2021 REASON FOR FOLLOWUP: Abdominal sepsis. INTERVAL HISTORY: Patient did spike a low-grade fever of 100.9 this afternoon. The patient afebrile since then. The patient remains to be lethargic. Unable to provide any history currently on nasal cannula oxygen. No vomiting. No diarrhea or any other changes reported by the nursing staff. PHYSICAL EXAMINATION: Blood pressure 105/76, pulse 74, temperature 98, he is 96% on 5 L nasal cannula. General description is a middle-aged male lying in bed in no distress. Respiratory system: Unlabored breathing, decreased breath sounds in the base. No wheeze. Heart S1, S2. Regular rate and rhythm. Abdomen: Soft. Mildly distended. No guarding. No rigidity. LABS: Hemoglobin is 10, white count 6.8, creatinine 1.32. Blood culture Covid is negative . Sputum so far negative. DIAGNOSTIC IMPRESSION AND PLAN: Patient with abdominal sepsis with status post partial gastrectomy. Patient is covered with Zosyn and Diflucan and that will continue while monitoring clinical course closely. Continue supportive care. Positive culture more likely contaminant. Repeat has been negative so far. No need for vancomycin. MMODL / IJN: [id number] /
--- NOTE | 2021-05-14 00:02 | P.PN ---
Subjective Progress Note Date: 05/13/21 Patient is a 41-year-old male with a known history of hypertension, history of bariatric surgery and hernia repair and PTSD and previous history of smoking presents to ER with complaints of severe abdominal pain and vomiting. Patient was transferred from the shelter. Patient was seen in the ER on 05/09/2020 and presented back to the hospital with complaints of abdominal pain. Patient underwent gastric bypass surgery in [place] and had similar complaints of pain and was diagnosed with internal hernia. CT abdomen pelvis showed pneumoperitoneum interval development of free fluid within the abdomen consistent with probable bowel perforation and obstruction as previously reported. Chest x-ray showed low lung volumes with the left greater than right bilateral linear scarring and atelectasis. Patient underwent repair of ventral hernia and partial gastrectomy. He was transferred to MICU. Patient is currently mechanical ventilator and intubated. Sedated and paralyzed. Laboratory data showed WBC 4.0 hemoglobin 18.3 and platelets 481 BUN 24 and creatinine 2.66 Lactic acid 12.3 on admission calcium 10.4 troponin 0 0.108 Amylase 861 lipase 5 07/10/2019 COVID-19 PCR not detected 05/12/2021 Patient is status post exploratory laparotomy, bowel resection and gastric resection. Postoperative day 2. Patient is in the MICU. Currently intubated and on mechanical ventilator. Assist control with a tidal volume 500, respiratory rate 20 and FiO2 40% PEEP of 5. On pressor support with Levophed. Which is being tapered down. Patient is being continued on antibiotics in the form of Zosyn Flagyl and Diflucan. Chest x-ray today showed continued small to moderate left pleural effusion with left b asilar and retrocardiac atelectasis and/or consolidation. Mild patchy opacification at the right lower lung slightly increased. Laboratory data showed WBC 6.4 hemoglobin 12.0 and platelets 259 Sodium 138 potassium 4.3 chloride 112 bicarb is 21 BUN 38 and creatinine 2.01, calcium 7.3 phosphorus 4.9 and magnesium 3.3 albumin 2.0. Blood culture showed gram-negative staph aureus. Likely contaminant. Review of systems could not be obtained from the patient. 05/13/2021 Patient is currently in MICU. Postoperative day 3. Patient was extubated yesterday. Currently sitting up in the chair. Requiring oxygen at 5 L via nasal cannula. Off pressor support. NG tube with low suction is present and also patient was started on TPN for nutrition. Continued on IV hydration. Chest x-ray today showed NG tube to tip at the lower third thorax. Need to be further advanced. Otherwise stable exam with hypoventilatory changes with diffuse interstitial densities and focal left basilar opacity. Lab data showed WBC 6.8 hemoglobin 10.0 and platelets 197 Sodium 140 potassium 3.5 chloride 101 bicarb is 25 BUN 26 and creatinine 1.32 AST 150 ALT 44 alk phos 94 triglycerides 770 Patient is being continued on antibiotics in the form of Zosyn, Flagyl and fluconazole. ID and pulmonary is on board. Current medications reviewed. Objective - Vital Signs Vital signs: Vital Signs Temp 98.9 F 05/13/21 14:30 Pulse 74 05/13/21 19:00 Resp 18 05/13/21 19:00 BP 149/108 05/13/21 18:30 Pulse Ox 96 05/13/21 19:00 Intake & Output 05/13/21 05/13/21 05/14/21 06:59 18:59 06:59 Intake Total 2826.923 1848.553 68.8 Output Total 1580 2005 150 Balance 1246.923 -156.447 -81.2 Weight 108.8 kg Intake: IV 2814.4 1775.6 68.8 Lactated Ringers 1,000 ml 1800 790 20 @ 50 mls/hr IV .Q20H [facility] Rx#:[id number] MVI 342.4 513.6 42.8 Piperacillin-Tazobactam 3 200 .375 gm In Sodium Chloride 0.9% 100 ml @ 25 mls/hr IVPB Q8HR [facility] Rx# :[id number] Vancomycin 1,750 mg In 500 Sodium Chloride 0.9% 500 ml 500 ml @ 167 mls/hr IVPB Q24H [facility] Rx#: [id number] metroNIDAZOLE-NS PMX 500 100 200 mg In Saline 1 100ml.bag @ 100 mls/hr IVPB Q8HR [facility] Rx#:[id number] pressure bag 72 72 6 Intake, IV Titration 12.523 72.953 Amount Dexmedetomidine/0.9% NaCl 12.523 72.953 (Pmx) 400 mcg In Empty Bag 1 bag @ 0.2 MCG/KG/HR 5.025 mls/hr IV .[id number] [facility] Rx#:[id number] Output: Drainage 55 100 Abdomen 55 100 Urine 1525 1905 150 Other: Voiding Method Indwelling Catheter Indwelling Catheter ABP, PAP, CO, CI - Last Documented Arterial Blood Pressure 105/76 - Exam PHYSICAL EXAMINATION: Patient is lying in the bed comfortably, no acute distress, awake alert and oriented.. HEENT: Normocephalic. Neck is supple. Pupils reactive. Nostrils clear. Oral cavity is moist. Neck reveals no JVD, carotid bruits, or thyromegaly. CHEST EXAMINATION: Trachea is central. Symmetrical expansion. Bibasilar diminished sounds. No wheezing or rhonchi.. CARDIAC: Normal S1, S2 with no gallops. No murmurs ABDOMEN: Soft. Abdominal surgical site is bandaged. Bowel sounds diminished.. No abdominal bruits. Extremities: reveal no edema. No clubbing or cyanosis Neurologically awake, alert, oriented x3 with well-coordinated movements. No focal deficits noted Skin: No rash or skin lesions. Psychiatric: Cooperative. Nonsuicidal Musculoskeletal: No joint swelling or deformity. Normal range of motion. - Labs CBC & Chem 7: 05/13/21 04:45 05/13/21 04:45 Labs: Abnormal Lab Results - Last 24 Hours (Table) 05/13/21 05/13/21 05/13/21 Range/Units 00:05 04:45 04:45 RBC 3.37 L (4.30-5.90) m/uL Hgb 10.0 L D (13.0-17.5) gm/dL Hct 30.0 L (39.0-53.0) % Lymphocytes # 0.6 L (1.0-4.8) k/uL Chloride 111 H (98-107) mmol/L BUN 26 H (9-20) mg/dL Creatinine 1.32 H (0.66-1.25) mg/dL Glucose 111 H (74-99) mg/dL POC Glucose (mg/dL) 114 H (75-99) mg/dL Calcium 7.4 L (8.4-10.2) mg/dL Phosphorus (2.5-4.5) mg/dL Magnesium (1.6-2.3) mg/dL AST 150 H (17-59) U/L Total Protein 4.2 L (6.3-8.2) g/dL Albumin 1.9 L (3.5-5.0) g/dL Triglycerides 770.00 H (0.00-149.00) mg/dL 05/13/21 05/13/21 Range/Units 04:45 18:28 RBC (4.30-5.90) m/uL Hgb (13.0-17.5) gm/dL Hct (39.0-53.0) % Lymphocytes # (1.0-4.8) k/uL Chloride (98-107) mmol/L BUN (9-20) mg/dL Creatinine (0.66-1.25) mg/dL Glucose (74-99) mg/dL POC Glucose (mg/dL) 128 H (75-99) mg/dL Calcium (8.4-10.2) mg/dL Phosphorus 2.3 L (2.5-4.5) mg/dL Magnesium 2.5 H (1.6-2.3) mg/dL AST (17-59) U/L Total Protein (6.3-8.2) g/dL Albumin (3.5-5.0) g/dL Triglycerides (0.00-149.00) mg/dL Microbiology - Last 24 Hours (Table) 05/11/21 12:00 Blood Culture - Preliminary Blood No Growth after 48 hours 05/11/21 Unknown Gram Stain - Final Sputum Sputum Culture - Final 05/11/21 15:56 Blood Culture Gram Stain - Preliminary Blood Blood Culture - Preliminary Coagulase Negative Staph Assessment and Plan Assessment: Bowel perforation due to gastric ischemia and necrosis. Status post exploratory laparotomy and repair of ventral hernia and partial gastrectomy. Postoperative day 3. Acute kidney injury due to ATN, cr 2.66-->2.01--1.32 Hyperkalemia secondary to acute kidney injury. resolved Mild transaminitis Elevated lipase level Hypertension History of smoking Previous history of gastric bypass surgery and history of ventral hernia.. DVT prophylaxis. With Lovenox subcu. plan: Patient is currently in MICU. Patient is extubated on 05/12/2021. Levophed is tapered off. Continue with IV hydration, broad-spectrum antibiotics in the form of Zosyn, Flagyl and fluconazole. Follow culture reports. Monitor renal function closely. Pulmonary, ID and general surgery is on board. will continue to follow closely and further recommendations based on clinical course. Prognosis is guarded at this time. Time with Patient: Greater than 30
[2021-05-14] MEDS: HYDROmorphone 1 MG/ML 1 ML SYRINGE IVP PRN ×7 (00:16→23:53)
[2021-05-14 00:19] LABS: Glucose,Whole Blood 132 mg/dL (75-99)
[2021-05-14] MEDS: PIPERACILLIN-TAZOBACTAM 3.375 GM in SODIUM CHLORIDE 0.9% 100 ML IVPB SCH ×4 (03:39→23:54)
[2021-05-14 04:51] LABS: Basophils % (A) 0 %; Eosinophils # (A) 0.3 k/uL (0-0.7); Eosinophils % (A) 4 %; HCT 28.6 % (39.0-53.0); HGB 9.1 gm/dL (13.0-17.5); Lymphocytes # (A) 0.7 k/uL (1.0-4.8); Lymphocytes % (A) 11 %; MCH 28.7 pg (25.0-35.0); MCHC 31.7 g/dL (31.0-37.0); MCV 90.7 fL (80.0-100.0); Monocytes # (A) 0.4 k/uL (0-1.0); Monocytes % (A) 7 %; Neutrophils # (A) 4.7 k/uL (1.3-7.7); Neutrophils % (A) 76 %; Platelet Count 180 k/uL (150-450); RBC 3.15 m/uL (4.30-5.90); RDW 14.3 % (11.5-15.5); WBC 6.1 k/uL (3.8-10.6)
[2021-05-14] MEDS: DEXMEDETOMIDINE/0.9% NACL(PMX) 400 MCG in EMPTY BAG 1 BAG IV SCH (05:00)
[2021-05-14 05:18] LABS: ALT 41 U/L (4-49); AST 144 U/L (17-59); African American GFR (CKD) >90 (>60 ml/min/1.73 sqM); Alkaline Phosphatase 86 U/L (38-126); Anion Gap 1 mmol/L; Blood Urea Nitrogen 22 mg/dL (9-20); Calcium 7.7 mg/dL (8.4-10.2); Carbon Dioxide 30 mmol/L (22-30); Chloride 109 mmol/L (98-107); Glucose 124 mg/dL (74-99); Lipase 310 U/L (23-300); Non-African American GFR(CKD) >90 (>60 ml/min/1.73 sqM); Phosphorus 3.1 mg/dL (2.5-4.5); Potassium 3.6 mmol/L (3.5-5.1); Sodium 140 mmol/L (137-145); Total Bilirubin 0.6 mg/dL (0.2-1.3); Total Protein 4.3 g/dL (6.3-8.2)
[2021-05-14] MEDS ORDERED: Potassium Replacement Protocol 1 EACH MISC MISCELLANE PRN (07:13)
[2021-05-14] MEDS ORDERED: POTASSIUM BICARBONATE/CIT AC 20 MEQ TABLET.EFF NG-TUBE SCH (08:00)
[2021-05-14] MEDS ORDERED: FUROSEMIDE 10 MG/ML 10 ML VIAL IV STA (08:26)
[2021-05-14] MEDS: NOREPINEPHRINE 4 MG in SODIUM CHLORIDE 0.9% 250 ML IV SCH ×2 (08:34→18:40)
--- NOTE | 2021-05-14 08:35 | XR ---
EXAMINATION TYPE: XR chest 1V DATE OF EXAM: 05/14/2021 COMPARISON: 05/13/2021 INDICATION: Short of breath TECHNIQUE: Single frontal view of the chest is obtained. FINDINGS: The heart size is enlarged. The pulmonary vasculature is prominent. Left lower lobe infiltrate is present. Patchy infiltrates are present to the remaining lung brown Left central venous catheter tip is within the right atrium. Nasogastric tube is been removed. IMPRESSION: 1. Bibasilar infiltrates greater at the left base. 2. Lines and catheters discussed above.
[2021-05-14] MEDS: POTASSIUM CHLORIDE 10 MEQ in WATER FOR INJECTION 1 100ML.BAG IVPB SCH ×2 (08:38→09:49)
[2021-05-14] MEDS: LACTATED RINGERS 1,000 ML IV SCH (08:43)
[2021-05-14] MEDS: metroNIDAZOLE-NS PMX 500 MG in SALINE 1 100ML.BAG IVPB SCH ×3 (09:47→23:54)
[2021-05-14] MEDS: ENOXAPARIN 40 MG/0.4 ML SYRINGE SQ SCH (09:49)
--- NOTE | 2021-05-14 10:03 | P.PN ---
Subjective Progress Note Date: 05/14/21 Principal diagnosis: Respiratory failure. Pulmonary/critical care consult dated 05/11/2021. A 41-year-old incarcerated male, seen in the emergency department on May 10, for abdominal pain, and vomiting. The patient was seen in the emergency department the day before, evaluated, and discharged back to the senior care. The patient apparently had a gastric bypass a couple years ago, and [place]. Anyway, the patient was evaluated again, and found to have a necrotic stomach, surgery, including a exploratory laparotomy, gastrectomy, and repair of internal hernia. The patient was returned back to the intensive care unit, on the mechanical ventilator. He is on the volume assist control mode, rate of 20, tidal volume 500, FiO2 50%, and PEEP of 5. Blood gases show pO2 119, pCO2 40, and a pH is 7.33. He is currently postop day #1. He is getting lactated Ringer's at 150 mL an hour, norepinephrine at 8 mcg/m, and propofol 50 mcg/kg/m. He is currently not on any antibiotics. We start Zosyn and Flagyl. In addition, we place a right brachial heart line, and a left internal jugular triple-lumen catheter. Apparently, the patient's only past medical history includes hypertension, the gastric bypass surgery, and hernia repair. White count 10.7, hemoglobin 15.9, hematocrit 48.2, platelet count 324,000. Sodium 142, potassium 5.8, chlorides 112, CO2 19, anion gap 11, BUN 38, and creatinine 2.32. AST 160, with an ALT of 83. Lipase is 521. Chest x-ray shows consolid ation and/or effusion/atelectasis, at the left lung base. Progress note dated 05/12/2021. 41-year-old male, seen yesterday in consultation. He was seen in the emergency department initially on May 10 for abdominal pain and vomiting. He was seen the day before in the ER, and discharged back to the senior care. The patient was found to have a necrotic stomach, perforated viscus, and underwent a exploratory laparotomy, gastrectomy, and repair of internal hernia. The patient was transferred back to the intensive care unit, on the ventilator. He is postop day #2. Currently, he's on volume assist control, rate 20, tidal volume 500, FiO2 40%, and he will be reduced to 30%, and a PEEP of 5. Arterial blood gases show pO2 of 131, pCO2 42, and pH is 7.36. The patient is getting lactated Ringer's at 50 mL an hour, propofol at 55 mcg/kg/m, norepinephrine, which has been weaned off. In addition, the patient is on Zosyn and Flagyl. The patient will have a daily interruption of sedation today, and a spontaneous breathing trial. I've asked the nurse to wean off the propofol, and use dexmedetomidine for sedation necessary. White count 6.4, hemoglobin 12, hematocrit 36.2, and platelet count 259,000. Sodium 138, potassium 4.7, chlorides 112, CO2 21, anion gap 5, BUN 38 and creatinine 2.01. AST was 102. Albumin was 2. Chest x-ray shows a small left pleural effusion, with some left basilar retrocardiac atelectasis. There is also some patchy infiltrate or atelectasis at the right base. Microbiologic studies are thus far negative. Progress note dated 05/13/2021. 41-year-old male, who was extubated from mechanical ventilation yesterday. He is postop day #3. Currently, he is on 5 L nasal cannula. He is getting TPN at 43 mL an hour, Precedex at 1 mcg/kg/h, and lactated Ringer's at 150 mL an hour. White count 6.8, hemoglobin 10, hematocrit 30, and platelet count 197,000. S odium 140, potassium 3.5, chlorides 111, CO2 25, anion gap 4, BUN 26, creatinine 1.32. Blood cultures are positive for coag-negative staph, from May 11. No chest x-ray was done today. The patient's currently on Zosyn and Flagyl. Progress note dated 05/14/2021. 41-year-old male, seen in room 256. The patient was extubated from mechanical ventilation, 2 days ago. He's postop day #4, status post exploratory laparotomy, gastrectomy, and repair of internal hernia. The patient is doing reasonably well. He is on 5 L nasal cannula. Currently, he's on TPN at 43 mL an hour. He still on Precedex at 0.4 mcg/kg/h, and lactated Ringer's at 20 mL an hour. I asked the nurse to get incentive spirometer in the room. In addition, he is way ahead on fluids, so we will give him Lasix 60 mg IV push once. White count 6.1, hemoglobin 9.1, hematocrit 28.6, platelet count 180,000. Sodium 140, potassium 3.6, chlorides 109, CO2 30, anion gap 1, BUN 22, and creatinine 0.99. Blood cultures are showing evidence of coag-negative staph. Chest x-ray showing bibasilar infiltrates, greatest at the left base. Objective - Vital Signs Vital signs: Vital Signs Temp 99.9 F H 05/14/21 08:30 Pulse 64 05/14/21 09:30 Resp 15 05/14/21 09:30 BP 149/108 05/13/21 18:30 Pulse Ox 99 05/14/21 09:30 Intake & Output 05/13/21 05/14/21 05/14/21 18:59 06:59 18:59 Intake Total 5423.717 6255.3 272.51 Output Total 2004 1120 155 Balance -156.447 202.3 117.51 Weight 100.4 kg Intake: IV 1775.6 1022.3 237.0 Lactated Ringers 1,000 ml 790 240 40 @ 50 mls/hr IV .Q20H [facility] Rx#:[id number] MVI 513.6 510.3 85.0 Piperacillin-Tazobactam 3 200 100 .375 gm In Sodium Chloride 0.9% 100 ml @ 25 mls/hr IVPB Q8HR [facility] Rx# :[id number] Potassium Chloride 10 meq 100 In Water For Injection 1 100ml.bag @ 100 mls/hr IVPB Q1H [facility] Rx#: [id number] metroNIDAZOLE-NS PMX 500 200 100 mg In Saline 1 100ml.bag @ 100 mls/hr IVPB Q8HR [facility] Rx#:[id number] pressure bag 72 72 12 Intake, IV Titration 72.953 300 35.51 Amount Dexmedetomidine/0.9% NaCl 72.953 100 35.51 (Pmx) 400 mcg In Empty Bag 1 bag @ 0.2 MCG/KG/HR 5.025 mls/hr IV .[id number] [facility] Rx#:[id number] Fluconazole in NaCl,Iso- 200 Osm 400 mg In Saline 1 200ml.bag @ 100 mls/hr IVPB Q24H [facility] Rx#: [id number] Output: Drainage 100 15 5 Abdomen 100 15 5 Urine 1905 1105 150 Other: Voiding Method Indwelling Catheter Indwelling Catheter ABP, PAP, CO, CI - Last Documented Arterial Blood Pressure 99/79 - Exam No acute distress, extubated, on nasal O2 at 5 L. Much more awake today. HEENT examination is grossly unremarkable. Neck supple. Full range of motion. No adenopathy thyromegaly or neck vein distention. Cardiovascular examination reveals regular rhythm rate. S1-S2 normal. No S3 or S4. No discernible murmur noted. Heart rate 64 bpm. Lungs reveal scattered bilateral rhonchi and no wheezes. No crackles. Breath sounds equal bilaterally. Saturations are 99%. Abdomen soft, without bowel sounds. Drainage catheters are noted. Extremities are intact. No cyanosis clubbing or edema. Skin is without rash or lesion. The patient is very diaphoretic. Neurologic examination reveals a patient who is a bit lethargic still. Certainly much improved neurologically. Moves all 4 extremities. - Labs CBC & Chem 7: 05/14/21 04:30 05/14/21 04:30 Labs: Abnormal Lab Results - Last 24 Hours (Table) 05/13/21 05/13/21 05/14/21 Range/Units 04:45 18:28 00:17 RBC (4.30-5.90) m/uL Hgb (13.0-17.5) gm/dL Hct (39.0-53.0) % Lymphocytes # (1.0-4.8) k/uL Chloride (98-107) mmol/L BUN (9-20) mg/dL Glucose (74-99) mg/dL POC Glucose (mg/dL) 128 H 132 H (75-99) mg/dL Calcium (8.4-10.2) mg/dL AST (17-59) U/L Total Protein (6.3-8.2) g/dL Albumin (3.5-5.0) g/dL Triglycerides 770.00 H (0.00-149.00) mg/dL Lipase (23-300) U/L 05/14/21 05/14/21 Range/Units 04:30 04:30 RBC 3.15 L (4.30-5.90) m/uL Hgb 9.1 L (13.0-17.5) gm/dL Hct 28.6 L (39.0-53.0) % Lymphocytes # 0.7 L (1.0-4.8) k/uL Chloride 109 H (98-107) mmol/L BUN 22 H (9-20) mg/dL Glucose 124 H (74-99) mg/dL POC Glucose (mg/dL) (75-99) mg/dL Calcium 7.7 L (8.4-10.2) mg/dL AST 144 H (17-59) U/L Total Protein 4.3 L (6.3-8.2) g/dL Albumin 2.0 L (3.5-5.0) g/dL Triglycerides (0.00-149.00) mg/dL Lipase 310 H (23-300) U/L Microbiology - Last 24 Hours (Table) 05/11/21 12:00 Blood Culture - Preliminary Blood No Growth after 48 hours 05/11/21 Unknown Gram Stain - Final Sputum Sputum Culture - Final Assessment and Plan Assessment: Postop day #4, status post exploratory laparotomy, gastrectomy, and repair of internal hernia, secondary to gastric ischemia and necrosis. Routine postoperative ventilator management, status post successful extubation on 05/12/2020. Acute kidney injury. History of hypertension. Prior history of tobacco use. Prior history of gastric bypass for obesity. Plan: Plan dated 05/11/2021. The patient will get some additional fluids. We'll give the patient 2 L of saline. In addition, the patient be started on antibiotics in the form of Zosyn and Flagyl. In addition, the patient will continue on norepinephrine. In addition, the patient will continue on propofol. An arterial line and triple hoa men catheter replaced. Additional recommendations and suggestions are forthcoming. Prognosis is guarded. We will continue to follow make recommendations where appropriate. Plan dated 05/12/2021. The patient is going to be given a daily interruption of sedation and a spontaneous breathing trial today. I told the nurse to wean him off the propofol, and use dexmedetomidine for sedation or agitation. The patient has been weaned off the norepinephrine. Labs are reviewed. Medications are revi ewed. We will continue to follow and make recommendations where appropriate. Prognosis is guarded. Chest x-ray does show some patchy bibasilar infiltrates and/or atelectasis, and a relatively small left-sided pleural effusion. We will continue to monitor this. Plan dated 05/13/2021. The patient was successfully extubated yesterday. That was on 05/12/2021. Today's postop day #3. We will attempt to wean the dexmedetomidine off. We did order labs and x-rays for tomorrow. In addition, I recommend an incentive spirometer, to be used hourly. Additional recommendations and suggestions are forthcoming. The patient's getting TPN at 43 mL an hour. IV fluids are turned down to 50 mL an hour. We will continue to follow make recommendations where appropriate. Overall prognosis is very guarded. Plan dated 05/14/2021. The patient was successfully extubated on May 12. The patient is postop day #4. The patient's much more awake and alert. The patient's currently on 5 L nasal cannula. That can probably be weaned bit. The patient's on TPN at 43 mL an hour. The patient's also on dexmedetomidine at 0.4 mcg/kg/h. We will continue to wean that as well. I asked the nurse to give him Lasix, 60 mg, IV push. In addition, the patient should have an incentive spirometer in the room. He should focus on deep breathing, coughing, clearing of secretions. In addition, he should be doing incentive spirometer, every hour while awake. We will continue to follow and make recommendations where appropriate. Overall prognosis is guarded. Time with Patient: Greater than 30
[2021-05-14 11:56] LABS: Glucose,Whole Blood 94 mg/dL (75-99)
--- NOTE | 2021-05-14 13:43 | P.PN ---
Subjective Progress Note Date: 05/14/21 CHIEF COMPLAINT: Abdominal pain HISTORY OF PRESENT ILLNESS: Patient is postop day #4 status post repair of internal hernia and partial gastrectomy for internal hernia with obstruction and necrotic stomach. Patient remains in the ICU. He was extubated on 05/12/2021. He is lying in bed comfortably. He is on TPN for nutrition support. He is having flatus. He is asking to get out of bed. Patient had low-grade temp of 100 this morning. Patient receiving a dose of IV Lasix due to fluid overload. WBC 6.1 hemoglobin 9.1 platelets 180 Patient seen and examined with Dr. griffin PHYSICAL EXAM: VITAL SIGNS: Reviewed. GENERAL: Well-developed in no acute distress. HEENT: No sclera icterus. Moist buccal mucosa. Head is atraumatic, normocephalic. ABDOMEN: Soft. Mildly distended. Incisional dressing clean dry and intact. Abdominal binder in place. NOAH drain with serosanguineous output NEUROLOGIC: Awake but sleepy ASSESSMENT: 1. Internal hernia with obstruction and necrotic stomach status post exploratory laparotomy, repair of internal hernia and partial gastrectomy 2. Pneumoperitoneum PLAN: -Start clear liquid diet -Encouraged patient to increase activity level -Encouraged patient to use incentive spirometer -Continue ICU management -Continue supportive care -Continue antibiotics per ID -Continue TPN for nutrition support -Continue DVT prophylaxis Lovenox Physician Supervisor Pastry note has been reviewed by physician. Signing provider agrees with the documented findings, assessment, and plan of care. Objective - Vital Signs Vital signs: Vital Signs Temp 100.6 F H 05/14/21 12:00 Pulse 93 05/14/21 12:00 Resp 22 05/14/21 12:00 BP 149/108 05/13/21 18:30 Pulse Ox 91 L 05/14/21 12:00 Intake & Output 05/13/21 05/14/21 05/14/21 18:59 06:59 18:59 Intake Total 1098.420 0530.3 870.380 Output Total 2004 1120 3405 Balance -156.447 202.3 -2534.620 Weight 100.4 kg 100.4 kg Intake: IV 1775.6 1022.3 811.0 Lactated Ringers 1,000 ml 790 240 120 @ 50 mls/hr IV .Q20H [facility] Rx#:[id number] MVI 513.6 510.3 255.0 Piperacillin-Tazobactam 3 200 100 100 .375 gm In Sodium Chloride 0.9% 100 ml @ 25 mls/hr IVPB Q8HR [facility] Rx# :[id number] Potassium Chloride 10 meq 200 In Water For Injection 1 100ml.bag @ 100 mls/hr IVPB Q1H [facility] Rx#: [id number] metroNIDAZOLE-NS PMX 500 200 100 100 mg In Saline 1 100ml.bag @ 100 mls/hr IVPB Q8HR [facility] Rx#:[id number] pressure bag 72 72 36 Intake, IV Titration 72.953 300 59.380 Amount Dexmedetomidine/0.9% NaCl 72.953 100 59.380 (Pmx) 400 mcg In Empty Bag 1 bag @ 0.2 MCG/KG/HR 5.025 mls/hr IV .[id number] [facility] Rx#:[id number] Fluconazole in NaCl,Iso- 200 Osm 400 mg In Saline 1 200ml.bag @ 100 mls/hr IVPB Q24H [facility] Rx#: [id number] Output: Drainage 100 15 5 Abdomen 100 15 5 Urine 1905 1105 3400 Other: Voiding Method Indwelling Catheter Indwelling Catheter Indwelling Catheter ABP, PAP, CO, CI - Last Documented Arterial Blood Pressure 127/81 - Labs CBC & Chem 7: 05/14/21 04:30 05/14/21 04:30 Labs: Abnormal Lab Results - Last 24 Hours (Table) 05/13/21 05/14/21 05/14/21 Range/Units 18:28 00:17 04:30 RBC 3.15 L (4.30-5.90) m/uL Hgb 9.1 L (13.0-17.5) gm/dL Hct 28.6 L (39.0-53.0) % Lymphocytes # 0.7 L (1.0-4.8) k/uL Chloride (98-107) mmol/L BUN (9-20) mg/dL Glucose (74-99) mg/dL POC Glucose (mg/dL) 128 H 132 H (75-99) mg/dL Calcium (8.4-10.2) mg/dL AST (17-59) U/L Total Protein (6.3-8.2) g/dL Albumin (3.5-5.0) g/dL Lipase (23-300) U/L 05/14/21 Range/Units 04:30 RBC (4.30-5.90) m/uL Hgb (13.0-17.5) gm/dL Hct (39.0-53.0) % Lymphocytes # (1.0-4.8) k/uL Chloride 109 H (98-107) mmol/L BUN 22 H (9-20) mg/dL Glucose 124 H (74-99) mg/dL POC Glucose (mg/dL) (75-99) mg/dL Calcium 7.7 L (8.4-10.2) mg/dL AST 144 H (17-59) U/L Total Protein 4.3 L (6.3-8.2) g/dL Albumin 2.0 L (3.5-5.0) g/dL Lipase 310 H (23-300) U/L Microbiology - Last 24 Hours (Table) 05/11/21 12:00 Blood Culture - Preliminary Blood No Growth after 48 hours 05/11/21 Unknown Gram Stain - Final Sputum Sputum Culture - Final
[2021-05-14 15:15] LABS: ALT 45 U/L (4-49); AST 147 U/L (17-59); African American GFR (CKD) >90 (>60 ml/min/1.73 sqM); Albumin 2.3 g/dL (3.5-5.0); Alkaline Phosphatase 96 U/L (38-126); Anion Gap 5 mmol/L; Blood Urea Nitrogen 20 mg/dL (9-20); Calcium 7.5 mg/dL (8.4-10.2); Carbon Dioxide 29 mmol/L (22-30); Chloride 103 mmol/L (98-107); Glucose 130 mg/dL (74-99); Non-African American GFR(CKD) >90 (>60 ml/min/1.73 sqM); Potassium 3.2 mmol/L (3.5-5.1); Sodium 137 mmol/L (137-145); Total Bilirubin 0.6 mg/dL (0.2-1.3); Total Protein 4.9 g/dL (6.3-8.2)
[2021-05-14] MEDS ORDERED: POTASSIUM CHLORIDE ER 20 MEQ TAB.ER PO SCH (16:00)
[2021-05-14] MEDS ORDERED: HYDROmorphone 0.5 MG/0.5 ML SYRINGE IVP PRN (16:12)
[2021-05-14] MEDS: POTASSIUM CHLORIDE 20 MEQ in WATER FOR INJECTION 1 100ML.BAG IVPB SCH ×2 (16:26→19:14)
--- NOTE | 2021-05-14 17:35 | P.PN ---
Subjective Progress Note Date: 05/14/21 Principal diagnosis: Bowel perforation due to gastric ischemia and necrosis/ Status post exploratory laparotomy and repair of ventral hernia and partial gastrectomy Acute kidney injury due to ATN 41-year-old male with a known history of hypertension, history of bariatric surgery and hernia repair and PTSD and previous history of smoking presents to E with complaints of severe abdominal pain and vomiting. Patient was [facility] from the [facility]. Patient was seen in the ER on 05/09/2020 and presented back to the hospital with complaints of abdominal pain. Patient underwent gastric bypass surgery in [place] and had similar complaints of pain and was diagnosed with internal hernia. CT abdomen pelvis showed pneumoperitoneum interval development of free fluid within the abdomen consistent with probable bowel perforation and obstruction as previously reported. Chest x-ray showed low lung volumes with the left greater than right bilateral linear scarring and atelectasis. Patient underwent repair of ventral hernia and partial gastrectomy. He was transferred to MICU. Patient is currently mechanical ventilator and intubated. Sedated and paralyzed. Laboratory data showed WBC 4.0 hemoglobin 18.3 and platelets 481 BUN 24 and creatinine 2.66 Lactic acid 12.3 on admission calcium 10.4 troponin 0 0.108 Amylase 861 lipase 5 07/10/2019 COVID-19 PCR not detected 05/14/2021 Patient seen and evaluated in follow-up; extubated from mechanical ventilation; status post exploratory laparotomy, gastrectomy, and repair of internal hernia, postop day #4. Vital signs are reviewed and patient is currently on 5 L nasal cannula, temperature of 99.9, pulse 64, respiration 15 and blood pressure 140 01/07/2008. White count 6.1, hemoglobin 9.1, hematocrit 28.6, platelet count 180,000. Sodium 140, potassium 3.6, chlorides 109, CO2 30, anion gap 1, BUN 22, and creatinine 0.99. Blood cultures are showing evidence of coag-negative staph. Chest x-ray showing bibasilar infiltrates, greatest at the left base. Currently, he's on TPN at 43 mL an hour. He still on Precedex at 0.4 mcg/kg/h, and lactated Ringer's at 20 mL an hour. Patient received Lasix 60 mg IV 1 per filling layer up recommendations; recommended to continue to use incentive spirometry every one hour while awake, deep breathing, coughing and clearing of secretions Objective - Vital Signs Vital signs: Vital Signs Temp 99.9 F H 05/14/21 08:30 Pulse 71 05/14/21 10:00 Resp 17 05/14/21 10:00 BP 149/108 05/13/21 18:30 Pulse Ox 97 05/14/21 10:00 Intake & Output 05/13/21 05/14/21 05/14/21 18:59 06:59 18:59 Intake Total 0251.870 8271.3 670.817 Output Total 2004 1120 405 Balance -156.447 202.3 265.817 Weight 100.4 kg Intake: IV 1775.6 1022.3 624.0 Lactated Ringers 1,000 ml 790 240 80 @ 50 mls/hr IV .Q20H [facility] Rx#:[id number] MVI 513.6 510.3 170.0 Piperacillin-Tazobactam 3 200 100 50 .375 gm In Sodium Chloride 0.9% 100 ml @ 25 mls/hr IVPB Q8HR [facility] Rx# :[id number] Potassium Chloride 10 meq 200 In Water For Injection 1 100ml.bag @ 100 mls/hr IVPB Q1H [facility] Rx#: [id number] metroNIDAZOLE-NS PMX 500 200 100 100 mg In Saline 1 100ml.bag @ 100 mls/hr IVPB Q8HR [facility] Rx#:[id number] pressure bag 72 72 24 Intake, IV Titration 72.953 300 46.817 Amount Dexmedetomidine/0.9% NaCl 72.953 100 46.817 (Pmx) 400 mcg In Empty Bag 1 bag @ 0.2 MCG/KG/HR 5.025 mls/hr IV .[id number] [facility] Rx#:[id number] Fluconazole in NaCl,Iso- 200 Osm 400 mg In Saline 1 200ml.bag @ 100 mls/hr IVPB Q24H [facility] Rx#: [id number] Output: Drainage 100 15 5 Abdomen 100 15 5 Urine 1905 1105 400 Other: Voiding Method Indwelling Catheter Indwelling Catheter Indwelling Catheter ABP, PAP, CO, CI - Last Documented Arterial Blood Pressure 127/86 - Exam Patient is lying in the bed comfortably, no acute distress, awake alert and oriented.. HEENT: Normocephalic. Neck is supple. Pupils reactive. Nostrils clear. Oral cavity is moist. Neck reveals no JVD, carotid bruits, or thyromegaly. CHEST EXAMINATION: Trachea is central. Symmetrical expansion. Bibasilar diminished sounds. No wheezing or rhonchi.. CARDIAC: Normal S1, S2 with no gallops. No murmurs ABDOMEN: Soft. Abdominal surgical site is bandaged. Bowel sounds diminished.. No abdominal bruits. Extremities: reveal no edema. No clubbing or cyanosis Neurologically awake, alert, oriented x3 with well-coordinated movements. No focal deficits noted Skin: No rash or skin lesions. - Labs CBC & Chem 7: 05/14/21 04:30 05/14/21 04:30 Labs: Abnormal Lab Results - Last 24 Hours (Table) 05/13/21 05/13/21 05/14/21 Range/Units 04:45 18:28 00:17 RBC (4.30-5.90) m/uL Hgb (13.0-17.5) gm/dL Hct (39.0-53.0) % Lymphocytes # (1.0-4.8) k/uL Chloride (98-107) mmol/L BUN (9-20) mg/dL Glucose (74-99) mg/dL POC Glucose (mg/dL) 128 H 132 H (75-99) mg/dL Calcium (8.4-10.2) mg/dL AST (17-59) U/L Total Protein (6.3-8.2) g/dL Albumin (3.5-5.0) g/dL Triglycerides 770.00 H (0.00-149.00) mg/dL Lipase (23-300) U/L 05/14/21 05/14/21 Range/Units 04:30 04:30 RBC 3.15 L (4.30-5.90) m/uL Hgb 9.1 L (13.0-17.5) gm/dL Hct 28.6 L (39.0-53.0) % Lymphocytes # 0.7 L (1.0-4.8) k/uL Chloride 109 H (98-107) mmol/L BUN 22 H (9-20) mg/dL Glucose 124 H (74-99) mg/dL POC Glucose (mg/dL) (75-99) mg/dL Calcium 7.7 L (8.4-10.2) mg/dL AST 144 H (17-59) U/L Total Protein 4.3 L (6.3-8.2) g/dL Albumin 2.0 L (3.5-5.0) g/dL Triglycerides (0.00-149.00) mg/dL Lipase 310 H (23-300) U/L Microbiology - Last 24 Hours (Table) 05/11/21 12:00 Blood Culture - Preliminary Blood No Growth after 48 hours 05/11/21 Unknown Gram Stain - Final Sputum Sputum Culture - Final Assessment and Plan Assessment: Bowel perforation due to gastric ischemia and necrosis. Status post exploratory laparotomy and repair of ventral hernia and partial gastrectomy. Postoperative day 3. Acute kidney injury due to ATN, cr 2.66-->2.01--1.32 Hyperkalemia secondary to acute kidney injury. resolved Mild transaminitis Elevated lipase level Hypertension History of smoking Previous history of gastric bypass surgery and history of ventral hernia.. DVT prophylaxis. With Lovenox subcu. plan: Patient is currently in MICU. Patient is extubated on 05/12/2021. Levophed is tapered off. Continue with IV hydration, broad-spectrum antibiotics in the form of Zosyn, Flagyl and fluconazole. Follow culture reports. Monitor renal function closely. Pulmonary, ID and general surgery is on board. will continue to follow closely and further recommendations based on clinical course. Prognosis is guarded at this time.
[2021-05-14 18:08] LABS: Glucose,Whole Blood 111 mg/dL (75-99)
[2021-05-14] MEDS ORDERED: IPRATROPIUM-ALBUTEROL 3 ML NEB INHALATION PRN (19:31)
[2021-05-14 20:41] LABS: Glucose,Whole Blood 90 mg/dL (75-99)
[2021-05-14] MEDS: FLUCONAZOLE IN NACL,ISO-OSM 400 MG in SALINE 1 200ML.BAG IVPB SCH (20:50)
[2021-05-14] MEDS: IPRATROPIUM-ALBUTEROL 3 ML NEB INHALATION SCH (22:00)
[2021-05-14] MEDS ORDERED: 1: MVI, ADULT NO.4 WITH VIT K 10 ML, TRACE (CONC-1ML/DOSE) 1 ML in AMINO ACID 5%-D20W+LY IV SCH ×3 (23:00)
[2021-05-15] MEDS: HYDROmorphone 1 MG/ML 1 ML SYRINGE IVP PRN ×7 (03:53→21:27)
[2021-05-15] MEDS ORDERED: ACETAMINOPHEN IV (For NPO) 1,000 MG in EMPTY BAG 1 BAG IVPB ONE (04:20)
[2021-05-15 04:41] LABS: Basophils % (A) 0 %; Eosinophils # (A) 0.1 k/uL (0-0.7); Eosinophils % (A) 2 %; HCT 30.7 % (39.0-53.0); HGB 9.7 gm/dL (13.0-17.5); Lymphocytes # (A) 0.8 k/uL (1.0-4.8); Lymphocytes % (A) 14 %; MCH 28.8 pg (25.0-35.0); MCHC 31.6 g/dL (31.0-37.0); Monocytes # (A) 0.4 k/uL (0-1.0); Monocytes % (A) 6 %; Neutrophils # (A) 4.2 k/uL (1.3-7.7); Neutrophils % (A) 74 %; Platelet Count 231 k/uL (150-450); RBC 3.38 m/uL (4.30-5.90); RDW 14.8 % (11.5-15.5); WBC 5.7 k/uL (3.8-10.6)
[2021-05-15 05:11] LABS: African American GFR (CKD) >90 (>60 ml/min/1.73 sqM); Anion Gap 1 mmol/L; Blood Urea Nitrogen 19 mg/dL (9-20); Calcium 7.7 mg/dL (8.4-10.2); Carbon Dioxide 34 mmol/L (22-30); Chloride 102 mmol/L (98-107); Glucose 139 mg/dL (74-99); Magnesium 1.7 mg/dL (1.6-2.3); Non-African American GFR(CKD) >90 (>60 ml/min/1.73 sqM); Phosphorus 3.4 mg/dL (2.5-4.5); Potassium 3.4 mmol/L (3.5-5.1); Sodium 137 mmol/L (137-145)
[2021-05-15] MEDS ORDERED: Potassium Replacement Protocol 1 EACH MISC MISCELLANE PRN (05:25)
[2021-05-15 06:29] LABS: Glucose,Whole Blood 125 mg/dL (75-99)
[2021-05-15] MEDS: POTASSIUM CHLORIDE 20 MEQ in WATER FOR INJECTION 1 100ML.BAG IVPB SCH ×2 (07:01→12:33)
[2021-05-15] MEDS: MAGNESIUM SULFATE-D5W PMX 1 GM in DEXTROSE/WATER 1 100ML.BAG IVPB SCH ×2 (07:05→09:50)
[2021-05-15] MEDS: IPRATROPIUM-ALBUTEROL 3 ML NEB INHALATION SCH ×4 (07:15→19:35)
[2021-05-15] MEDS ORDERED: FUROSEMIDE 10 MG/ML 4 ML VIAL IV STA (08:24)
[2021-05-15] MEDS: ENOXAPARIN 40 MG/0.4 ML SYRINGE SQ SCH (09:09)
[2021-05-15] MEDS: metroNIDAZOLE-NS PMX 500 MG in SALINE 1 100ML.BAG IVPB SCH ×2 (09:09→16:11)
[2021-05-15] MEDS: NOREPINEPHRINE 4 MG in SODIUM CHLORIDE 0.9% 250 ML IV SCH (09:09)
[2021-05-15] MEDS: PIPERACILLIN-TAZOBACTAM 3.375 GM in SODIUM CHLORIDE 0.9% 100 ML IVPB SCH ×2 (09:10→16:11)
[2021-05-15] MEDS: SIMETHICONE 80 MG CHEWABLE PO SCH ×4 (09:41→21:59)
[2021-05-15] MEDS: LACTATED RINGERS 1,000 ML IV SCH ×2 (09:55→21:59)
--- NOTE | 2021-05-15 09:59 | P.PN ---
Subjective Progress Note Date: 05/15/21 Principal diagnosis: Respiratory failure. Pulmonary/critical care consult dated 05/11/2021. A 41-year-old incarcerated male, seen in the emergency department on May 10, for abdominal pain, and vomiting. The patient was seen in the emergency department the day before, evaluated, and discharged back to the snf. The patient apparently had a gastric bypass a couple years ago, and [place]. Anyway, the patient was evaluated again, and found to have a necrotic stomach, surgery, including a exploratory laparotomy, gastrectomy, and repair of internal hernia. The patient was returned back to the intensive care unit, on the mechanical ventilator. He is on the volume assist control mode, rate of 20, tidal volume 500, FiO2 50%, and PEEP of 5. Blood gases show pO2 119, pCO2 40, and a pH is 7.33. He is currently postop day #1. He is getting lactated Ringer's at 150 mL an hour, norepinephrine at 8 mcg/m, and propofol 50 mcg/kg/m. He is currently not on any antibiotics. We start Zosyn and Flagyl. In addition, we place a right brachial heart line, and a left internal jugular triple-lumen catheter. Apparently, the patient's only past medical history includes hypertension, the gastric bypass surgery, and hernia repair. White count 10.7, hemoglobin 15.9, hematocrit 48.2, platelet count 324,000. Sodium 142, potassium 5.8, chlorides 112, CO2 19, anion gap 11, BUN 38, and creatinine 2.32. AST 160, with an ALT of 83. Lipase is 521. Chest x-ray shows consolid ation and/or effusion/atelectasis, at the left lung base. Progress note dated 05/12/2021. 41-year-old male, seen yesterday in consultation. He was seen in the emergency department initially on May 10 for abdominal pain and vomiting. He was seen the day before in the ER, and discharged back to the snf. The patient was found to have a necrotic stomach, perforated viscus, and underwent a exploratory laparotomy, gastrectomy, and repair of internal hernia. The patient was transferred back to the intensive care unit, on the ventilator. He is postop day #2. Currently, he's on volume assist control, rate 20, tidal volume 500, FiO2 40%, and he will be reduced to 30%, and a PEEP of 5. Arterial blood gases show pO2 of 131, pCO2 42, and pH is 7.36. The patient is getting lactated Ringer's at 50 mL an hour, propofol at 55 mcg/kg/m, norepinephrine, which has been weaned off. In addition, the patient is on Zosyn and Flagyl. The patient will have a daily interruption of sedation today, and a spontaneous breathing trial. I've asked the nurse to wean off the propofol, and use dexmedetomidine for sedation necessary. White count 6.4, hemoglobin 12, hematocrit 36.2, and platelet count 259,000. Sodium 138, potassium 4.7, chlorides 112, CO2 21, anion gap 5, BUN 38 and creatinine 2.01. AST was 102. Albumin was 2. Chest x-ray shows a small left pleural effusion, with some left basilar retrocardiac atelectasis. There is also some patchy infiltrate or atelectasis at the right base. Microbiologic studies are thus far negative. Progress note dated 05/13/2021. 41-year-old male, who was extubated from mechanical ventilation yesterday. He is postop day #3. Currently, he is on 5 L nasal cannula. He is getting TPN at 43 mL an hour, Precedex at 1 mcg/kg/h, and lactated Ringer's at 150 mL an hour. White count 6.8, hemoglobin 10, hematocrit 30, and platelet count 197,000. S odium 140, potassium 3.5, chlorides 111, CO2 25, anion gap 4, BUN 26, creatinine 1.32. Blood cultures are positive for coag-negative staph, from May 11. No chest x-ray was done today. The patient's currently on Zosyn and Flagyl. Progress note dated 05/14/2021. 41-year-old male, seen in room 256. The patient was extubated from mechanical ventilation, 2 days ago. He's postop day #4, status post exploratory laparotomy, gastrectomy, and repair of internal hernia. The patient is doing reasonably well. He is on 5 L nasal cannula. Currently, he's on TPN at 43 mL an hour. He still on Precedex at 0.4 mcg/kg/h, and lactated Ringer's at 20 mL an hour. I asked the nurse to get incentive spirometer in the room. In addition, he is way ahead on fluids, so we will give him Lasix 60 mg IV push once. White count 6.1, hemoglobin 9.1, hematocrit 28.6, platelet count 180,000. Sodium 140, potassium 3.6, chlorides 109, CO2 30, anion gap 1, BUN 22, and creatinine 0.99. Blood cultures are showing evidence of coag-negative staph. Chest x-ray showing bibasilar infiltrates, greatest at the left base. Progress note dated 05/15/2021. 41-year-old male again seen in room 256. The patient was extubated from mechanical ventilation, 3 days ago. He's postop day #5, status post exploratory laparotomy, gastrectomy, and repair of internal hernia. The patient's currently on 4 L nasal cannula. He is getting TPN at 70 mL an hour, and lactated Ringer's at 20 mL an hour. The patient will get another dose of Lasix 40 mg IV push. We will also give him some Mylicon tablets for his gastric distress, and get another set of blood cultures. White count 5.7, hemoglobin 9.7, hematocrit 30.7, and platelet count normal. Sodium 137, potassium 3.4, chlorides 102, CO2 34, anion gap 1, BUN 19, creatinine 0.98. Culture data shows coag-negative staph, and the blood, from May 11. There was no chest x-ray today. Objective - Vital Signs Vital signs: Vital Signs Temp 101.3 F H 05/15/21 07:00 Pulse 76 05/15/21 07:27 Resp 18 05/15/21 07:00 BP 149/101 05/14/21 22:30 Pulse Ox 94 L 05/15/21 07:00 Intake & Output 05/14/21 05/15/21 05/15/21 18:59 06:59 18:59 Intake Total 7200.843 2743.0 76 Output Total 4580 1675 70 Balance -2915.620 -508.0 6 Weight 100.4 kg 106.5 kg Intake: IV 1597.0 1167.0 76 Lactated Ringers 1,000 ml 240 140 @ 50 mls/hr IV .Q20H [facility] Rx#:[id number] MVI 510.0 730.0 70 Piperacillin-Tazobactam 3 175 125 .375 gm In Sodium Chloride 0.9% 100 ml @ 25 mls/hr IVPB Q8HR [facility] Rx# :[id number] Potassium Chloride 10 meq 400 In Water For Injection 1 100ml.bag @ 100 mls/hr IVPB Q1H [facility] Rx#: [id number] metroNIDAZOLE-NS PMX 500 200 100 mg In Saline 1 100ml.bag @ 100 mls/hr IVPB Q8HR [facility] Rx#:[id number] pressure bag 72 72 6 Intake, IV Titration 67.380 Amount Dexmedetomidine/0.9% NaCl 67.380 (Pmx) 400 mcg In Empty Bag 1 bag @ 0.2 MCG/KG/HR 5.025 mls/hr IV .[id number] [facility] Rx#:[id number] Output: Drainage 5 20 Abdomen 5 20 Urine 4575 1675 50 Other: Voiding Method Indwelling Catheter Indwelling Catheter ABP, PAP, CO, CI - Last Documented Arterial Blood Pressure 130/124 - Exam No acute distress, extubated, on nasal O2 at 4 L. Much more awake today. HEENT examination is grossly unremarkable. Neck supple. Full range of motion. No adenopathy thyromegaly or neck vein distention. Cardiovascular examination reveals regular rhythm rate. S1-S2 normal. No S3 or S4. No discernible murmur noted. Heart rate 76 bpm. Lungs reveal scattered bilateral rhonchi and no wheezes. No crackles. Breath sounds equal bilaterally. Saturations are 94%. Abdomen soft, without bowel sounds. Drainage catheters are noted. Extremities are intact. No cyanosis clubbing or edema. Skin is without rash or lesion. The patient is very diaphoretic. Neurologic examination reveals a patient who is a bit lethargic still. Cer tainly much improved neurologically. Moves all 4 extremities. - Labs CBC & Chem 7: 05/15/21 03:25 05/15/21 03:25 Labs: Abnormal Lab Results - Last 24 Hours (Table) 05/14/21 05/14/21 05/15/21 Range/Units 14:51 18:07 03:25 RBC 3.38 L (4.30-5.90) m/uL Hgb 9.7 L (13.0-17.5) gm/dL Hct 30.7 L (39.0-53.0) % Lymphocytes # 0.8 L (1.0-4.8) k/uL Potassium 3.2 L (3.5-5.1) mmol/L Carbon Dioxide (22-30) mmol/L Glucose 130 H (74-99) mg/dL POC Glucose (mg/dL) 111 H (75-99) mg/dL Calcium 7.5 L (8.4-10.2) mg/dL AST 147 H (17-59) U/L Total Protein 4.9 L (6.3-8.2) g/dL Albumin 2.3 L (3.5-5.0) g/dL 05/15/21 05/15/21 Range/Units 03:25 06:18 RBC (4.30-5.90) m/uL Hgb (13.0-17.5) gm/dL Hct (39.0-53.0) % Lymphocytes # (1.0-4.8) k/uL Potassium 3.4 L (3.5-5.1) mmol/L Carbon Dioxide 34 H (22-30) mmol/L Glucose 139 H (74-99) mg/dL POC Glucose (mg/dL) 125 H (75-99) mg/dL Calcium 7.7 L (8.4-10.2) mg/dL AST (17-59) U/L Total Protein (6.3-8.2) g/dL Albumin (3.5-5.0) g/dL Microbiology - Last 24 Hours (Table) 05/11/21 12:00 Blood Culture - Preliminary Blood No Growth after 72 hours 05/11/21 15:56 Blood Culture Gram Stain - Final Blood Blood Culture - Final Coagulase Negative Staph Assessment and Plan Assessment: Postop day #5, status post exploratory laparotomy, gastrectomy, and repair of internal hernia, secondary to gastric ischemia and necrosis. Routine postoperative ventilator management, status post successful extubation on 05/12/2020. Acute kidney injury. History of hypertension. Prior history of tobacco use. Prior history of gastric bypass for obesity. Plan: Plan dated 05/11/2021. The patient will get some additional fluids. We'll give the patient 2 L of saline. In addition, the patient be started on antibiotics in the form of Zosyn and Flagyl. In addition, the patient will continue on norepinephrine. In toño tion, the patient will continue on propofol. An arterial line and triple lumen catheter replaced. Additional recommendations and suggestions are forthcoming. Prognosis is guarded. We will continue to follow make recommendations where appropriate. Plan dated 05/12/2021. The patient is going to be given a daily interruption of sedation and a spontaneous breathing trial today. I told the nurse to wean him off the propofol, and use dexmedetomidine for sedation or agitation. The patient has b een weaned off the norepinephrine. Labs are reviewed. Medications are reviewed. We will continue to follow and make recommendations where appropriate. Prognosis is guarded. Chest x-ray does show some patchy bibasilar infiltrates and/or atelectasis, and a relatively small left-sided pleural effu priyanka. We will continue to monitor this. Plan dated 05/13/2021. The patient was successfully extubated yesterday. That was on 05/12/2021. Today's postop day #3. We will attempt to wean the dexmedetomidine off. We did order labs and x-rays for tomorrow. In addition, I recommend an incentive spirometer, to be used hourly. Additional recommendations and suggestions are forthcoming. The patient's getting TPN at 43 mL an hour. IV fluids are turned down to 50 mL an hour. We will continue to follow make recommendations where appropriate. Overall prognosis is very guarded. Plan dated 05/14/2021. The patient was successfully extubated on May 12. The patient is postop day #4. The patient's much more awake and alert. The patient's currently on 5 L nasal cannula. That can probably be weaned bit. The patient's on TPN at 43 mL an hour. The patient's also on dexmedetomidine at 0.4 mcg/kg/h. We will continue to wean that as well. I asked the nurse to give him Lasix, 60 mg, IV push. In addition, the patient should have an incentive spirometer in the room. He should focus on deep breathing, coughing, clearing of secretions. In addition, he should be doing incentive spirometer, every hour while awake. We will continue to follow and make recommendations where appropriate. Overall prognosis is guarded. Plan dated 05/15/2021. The patient was successfully extubated on May. He's postop day #5. He's doing relatively well. Yesterday we hit him hard with diuretics. The patient diuresed 3.4 L. We are going to give him another dose of Lasix today, he milligrams IV push. We will send another set of blood cultures. The patient has had persistent fevers overnight. In addition, we'll give him some Mylicon tablets for his gastric bloating and upset stomach. We encourage the patient to deep breathe, cough, and clear secretions. In addition, we will again doing the incentive spirometer every hour while awake. Labs and x-rays are ordered for the morning. Additional recommendations and suggestions are forthcoming. Continue to follow and make recommendations where appropriate. Prognosis is guarded. Time with Patient: Greater than 30
--- NOTE | 2021-05-15 11:46 | P.PN ---
Subjective Progress Note Date: 05/15/21 Principal diagnosis: Gastric perforation Patient remains in the ICU. He is sitting up in a chair at this time. T-max 101.1. White blood cell count 5.7, hemoglobin 9.7. Says his pain is about the same. Tolerating clear liquids. No nausea or vomiting. NOAH drain serosanguineo us. Objective - Vital Signs Vital signs: Vital Signs Temp 98.5 F 05/15/21 08:00 Pulse 100 05/15/21 11:00 Resp 20 05/15/21 11:00 BP 149/101 05/14/21 22:30 Pulse Ox 93 L 05/15/21 11:00 Intake & Output 05/14/21 05/15/21 05/15/21 18:59 06:59 18:59 Intake Total 6543.905 3160.0 860 Output Total 4580 1675 2670 Balance -2915.620 -508.0 -1810 Weight 100.4 kg 106.5 kg Intake: IV 1597.0 1167.0 660 Lactated Ringers 1,000 ml 240 140 80 @ 50 mls/hr IV .Q20H [facility] Rx#:[id number] MVI 510.0 730.0 350 Piperacillin-Tazobactam 3 175 125 100 .375 gm In Sodium Chloride 0.9% 100 ml @ 25 mls/hr IVPB Q8HR [facility] Rx# :[id number] Potassium Chloride 10 meq 400 In Water For Injection 1 100ml.bag @ 100 mls/hr IVPB Q1H [facility] Rx#: [id number] metroNIDAZOLE-NS PMX 500 200 100 100 mg In Saline 1 100ml.bag @ 100 mls/hr IVPB Q8HR [facility] Rx#:[id number] pressure bag 72 72 30 Intake, IV Titration 67.380 100 Amount Dexmedetomidine/0.9% NaCl 67.380 (Pmx) 400 mcg In Empty Bag 1 bag @ 0.2 MCG/KG/HR 5.025 mls/hr IV .[id number] [facility] Rx#:[id number] Magnesium Sulfate-D5w Pmx 100 1 gm In Dextrose/Water 1 100ml.bag @ 100 mls/hr IVPB Q1H [facility] Rx#: [id number] Oral 100 Output: Drainage 5 20 Abdomen 5 20 Urine 4575 1675 2650 Other: Voiding Method Indwelling Catheter Indwelling Catheter ABP, PAP, CO, CI - Last Documented Arterial Blood Pressure 102/95 - Exam Abdomen: Soft, nondistended, dressing clean and dry, mild tenderness - Labs CBC & Chem 7: 05/15/21 03:25 05/15/21 03:25 Labs: Abnormal Lab Results - Last 24 Hours (Table) 05/14/21 05/14/21 05/15/21 Range/Units 14:51 18:07 03:25 RBC 3.38 L (4.30-5.90) m/uL Hgb 9.7 L (13.0-17.5) gm/dL Hct 30.7 L (39.0-53.0) % Lymphocytes # 0.8 L (1.0-4.8) k/uL Potassium 3.2 L (3.5-5.1) mmol/L Carbon Dioxide (22-30) mmol/L Glucose 130 H (74-99) mg/dL POC Glucose (mg/dL) 111 H (75-99) mg/dL Calcium 7.5 L (8.4-10.2) mg/dL AST 147 H (17-59) U/L Total Protein 4.9 L (6.3-8.2) g/dL Albumin 2.3 L (3.5-5.0) g/dL 05/15/21 05/15/21 Range/Units 03:25 06:18 RBC (4.30-5.90) m/uL Hgb (13.0-17.5) gm/dL Hct (39.0-53.0) % Lymphocytes # (1.0-4.8) k/uL Potassium 3.4 L (3.5-5.1) mmol/L Carbon Dioxide 34 H (22-30) mmol/L Glucose 139 H (74-99) mg/dL POC Glucose (mg/dL) 125 H (75-99) mg/dL Calcium 7.7 L (8.4-10.2) mg/dL AST (17-59) U/L Total Protein (6.3-8.2) g/dL Albumin (3.5-5.0) g/dL Microbiology - Last 24 Hours (Table) 05/11/21 12:00 Blood Culture - Preliminary Blood No Growth after 72 hours 05/11/21 15:56 Blood Culture Gram Stain - Final Blood Blood Culture - Final Coagulase Negative Staph Assessment and Plan (1) Perforated bowel Narrative/Plan: Patient clinically stable. He is having fevers. Continue antibiotics. Continue clear liquids. Monitor in ICU for now. Change abdominal dressing and micheal at this time. Current Visit: Yes Status: Acute Code(s): K63.1 - PERFORATION OF INTESTINE (NONTRAUMATIC) SNOMED Code(s): 22314176
[2021-05-15] MEDS: [UNRECOGNIZED DRUG - REMARK] IV SCH ×7 (13:16)
[2021-05-15] MEDS ORDERED: ACETAMINOPHEN IV (For NPO) 1,000 MG in EMPTY BAG 1 BAG IVPB PRN (15:44)
[2021-05-15] MEDS ORDERED: ANIDULAFUNGIN 200 MG in SODIUM CHLORIDE 0.9% 200 ML IVPB ONE (17:30)
--- NOTE | 2021-05-15 17:35 | PN ---
PROGRESS NOTE DATE OF SERVICE: 05/15/2021 REASON FOR FOLLOWUP: Abdominal sepsis from ischemic stomach, status post partial gastrectomy. INTERVAL HISTORY: The patient has been running a fever over the last 24 hours with a temperature of 101 this morning. The patient is hemodynamically stable, not on any pressor support. He is currently on 4 L nasal cannula. The patient denies having any chest pain, shortness of breath or cough. Some abdominal discomfort. No vomiting or diarrhea has been reported by the nursing staff. PHYSICAL EXAMINATION: Blood pressure 133/92 with a pulse of 90, temperature 100.7. He is 96% on 4 L nasal cannula. General description is a middle-aged male lying in bed in no distress. Respiratory system: Unlabored breathing, decreased intensity of breath sounds. No wheeze. Heart S1, S2. Regular rate and rhythm. Abdomen soft, mildly distended and tender to touch. Extremities: No edema of the feet. LABS: Hemoglobin is 9.7, white count 5.7, creatinine 0.98. DIAGNOSTIC IMPRESSION AND PLAN: Patient with abdominal sepsis from internal herniation and necrotic stomach, status post partial gastrectomy. Patient is broadly covered as far as abdominal is concerned. He has been running a fever, which is slightly concerning, and his white count normal with lymphopenia; possible viral infection. We will check blood cultures. Will also check a UA. COVID PCR will be repeated and for now continue Zosyn and switch over Diflucan to Eraxis and monitor his clinical course closely. MMODL / IJN: [id number] /
[2021-05-15 17:58] LABS: Appearance,Urine Clear (Clear); Bilirubin,Urine Negative (Negative); Blood,Urine Trace (Negative); Color,Urine Yellow; Glucose,Urine (UA) Trace (Negative); Ketones,Urine Negative (Negative); Leukocyte Esterase,Urine Trace (Negative); Mucus,Urine Rare /hpf; Nitrite,Urine Negative (Negative); Protein,Urine 1+ (Negative); RBC,Urine 1 /hpf (0-5); Specific Gravity,Urine 1.019 (1.001-1.035); Urobilinogen,Urine <2.0 mg/dL (<2.0); WBC,Urine 9 /hpf (0-5)
[2021-05-15] MEDS: PANTOPRAZOLE 40 MG/10 ML VIAL IVP SCH (18:08)
[2021-05-15] MEDS: POTASSIUM CHLORIDE 10 MEQ in WATER FOR INJECTION 1 100ML.BAG IVPB SCH ×2 (18:55→21:57)
[2021-05-15 20:58] LABS: Glucose,Whole Blood 128 mg/dL (75-99)
[2021-05-16] MEDS: HYDROmorphone 1 MG/ML 1 ML SYRINGE IVP PRN ×5 (00:32→21:23)
[2021-05-16] MEDS: PIPERACILLIN-TAZOBACTAM 3.375 GM in SODIUM CHLORIDE 0.9% 100 ML IVPB SCH ×3 (00:33→15:41)
[2021-05-16] MEDS: ONDANSETRON 4 MG/2 ML VIAL IVP PRN ×3 (03:23→21:52)
[2021-05-16 04:03] LABS: Basophils % (A) 0 %; Eosinophils # (A) 0.2 k/uL (0-0.7); Eosinophils % (A) 2 %; HCT 31.9 % (39.0-53.0); HGB 10.2 gm/dL (13.0-17.5); Lymphocytes # (A) 1.1 k/uL (1.0-4.8); Lymphocytes % (A) 11 %; MCH 28.8 pg (25.0-35.0); MCHC 31.9 g/dL (31.0-37.0); MCV 90.2 fL (80.0-100.0); Mean Platelet Volume 8.4; Monocytes # (A) 0.6 k/uL (0-1.0); Monocytes % (A) 7 %; Neutrophils # (A) 7.6 k/uL (1.3-7.7); Neutrophils % (A) 78 %; Platelet Count 265 k/uL (150-450); RBC 3.54 m/uL (4.30-5.90); RDW 14.2 % (11.5-15.5); WBC 9.7 k/uL (3.8-10.6)
[2021-05-16 04:19] LABS: ALT 35 U/L (4-49); AST 84 U/L (17-59); African American GFR (CKD) >90 (>60 ml/min/1.73 sqM); Albumin 2.4 g/dL (3.5-5.0); Alkaline Phosphatase 75 U/L (38-126); Anion Gap 3 mmol/L; Blood Urea Nitrogen 21 mg/dL (9-20); Carbon Dioxide 31 mmol/L (22-30); Chloride 100 mmol/L (98-107); Glucose 139 mg/dL (74-99); Magnesium 1.7 mg/dL (1.6-2.3); Non-African American GFR(CKD) >90 (>60 ml/min/1.73 sqM); Sodium 134 mmol/L (137-145); Total Bilirubin 0.6 mg/dL (0.2-1.3); Total Protein 5.1 g/dL (6.3-8.2)
[2021-05-16 05:47] LABS: Glucose,Whole Blood 151 mg/dL (75-99)
[2021-05-16] MEDS: [UNRECOGNIZED DRUG - REMARK] IV SCH ×14 (05:58→17:36)
[2021-05-16] MEDS: MAGNESIUM SULFATE-D5W PMX 1 GM in DEXTROSE/WATER 1 100ML.BAG IVPB SCH ×2 (06:03→08:33)
[2021-05-16] MEDS: IPRATROPIUM-ALBUTEROL 3 ML NEB INHALATION SCH ×4 (07:13→20:05)
[2021-05-16] MEDS: ENOXAPARIN 40 MG/0.4 ML SYRINGE SQ SCH (08:33)
[2021-05-16] MEDS: cloNIDine HCL 0.2 MG TAB PO SCH ×2 (08:33→21:21)
[2021-05-16] MEDS: PANTOPRAZOLE 40 MG/10 ML VIAL IVP SCH (08:33)
[2021-05-16] MEDS: SIMETHICONE 80 MG CHEWABLE PO SCH ×3 (08:35→17:15)
--- NOTE | 2021-05-16 09:46 | P.PN ---
Subjective Progress Note Date: 05/16/21 Principal diagnosis: Respiratory failure. Pulmonary/critical care consult dated 05/11/2021. A 41-year-old incarcerated male, seen in the emergency department on May 10, for abdominal pain, and vomiting. The patient was seen in the emergency department the day before, evaluated, and discharged back to the half-way. The patient apparently had a gastric bypass a couple years ago, and [place]. Anyway, the patient was evaluated again, and found to have a necrotic stomach, surgery, including a exploratory laparotomy, gastrectomy, and repair of internal hernia. The patient was returned back to the intensive care unit, on the mechanical ventilator. He is on the volume assist control mode, rate of 20, tidal volume 500, FiO2 50%, and PEEP of 5. Blood gases show pO2 119, pCO2 40, and a pH is 7.33. He is currently postop day #1. He is getting lactated Ringer's at 150 mL an hour, norepinephrine at 8 mcg/m, and propofol 50 mcg/kg/m. He is currently not on any antibiotics. We start Zosyn and Flagyl. In addition, we place a right brachial heart line, and a left internal jugular triple-lumen catheter. Apparently, the patient's only past medical history includes hypertension, the gastric bypass surgery, and hernia repair. White count 10.7, hemoglobin 15.9, hematocrit 48.2, platelet count 324,000. Sodium 142, potassium 5.8, chlorides 112, CO2 19, anion gap 11, BUN 38, and creatinine 2.32. AST 160, with an ALT of 83. Lipase is 521. Chest x-ray shows consolid ation and/or effusion/atelectasis, at the left lung base. Progress note dated 05/12/2021. 41-year-old male, seen yesterday in consultation. He was seen in the emergency department initially on May 10 for abdominal pain and vomiting. He was seen the day before in the ER, and discharged back to the half-way. The patient was found to have a necrotic stomach, perforated viscus, and underwent a exploratory laparotomy, gastrectomy, and repair of internal hernia. The patient was transferred back to the intensive care unit, on the ventilator. He is postop day #2. Currently, he's on volume assist control, rate 20, tidal volume 500, FiO2 40%, and he will be reduced to 30%, and a PEEP of 5. Arterial blood gases show pO2 of 131, pCO2 42, and pH is 7.36. The patient is getting lactated Ringer's at 50 mL an hour, propofol at 55 mcg/kg/m, norepinephrine, which has been weaned off. In addition, the patient is on Zosyn and Flagyl. The patient will have a daily interruption of sedation today, and a spontaneous breathing trial. I've asked the nurse to wean off the propofol, and use dexmedetomidine for sedation necessary. White count 6.4, hemoglobin 12, hematocrit 36.2, and platelet count 259,000. Sodium 138, potassium 4.7, chlorides 112, CO2 21, anion gap 5, BUN 38 and creatinine 2.01. AST was 102. Albumin was 2. Chest x-ray shows a small left pleural effusion, with some left basilar retrocardiac atelectasis. There is also some patchy infiltrate or atelectasis at the right base. Microbiologic studies are thus far negative. Progress note dated 05/13/2021. 41-year-old male, who was extubated from mechanical ventilation yesterday. He is postop day #3. Currently, he is on 5 L nasal cannula. He is getting TPN at 43 mL an hour, Precedex at 1 mcg/kg/h, and lactated Ringer's at 150 mL an hour. White count 6.8, hemoglobin 10, hematocrit 30, and platelet count 197,000. S odium 140, potassium 3.5, chlorides 111, CO2 25, anion gap 4, BUN 26, creatinine 1.32. Blood cultures are positive for coag-negative staph, from May 11. No chest x-ray was done today. The patient's currently on Zosyn and Flagyl. Progress note dated 05/14/2021. 41-year-old male, seen in room 256. The patient was extubated from mechanical ventilation, 2 days ago. He's postop day #4, status post exploratory laparotomy, gastrectomy, and repair of internal hernia. The patient is doing reasonably well. He is on 5 L nasal cannula. Currently, he's on TPN at 43 mL an hour. He still on Precedex at 0.4 mcg/kg/h, and lactated Ringer's at 20 mL an hour. I asked the nurse to get incentive spirometer in the room. In addition, he is way ahead on fluids, so we will give him Lasix 60 mg IV push once. White count 6.1, hemoglobin 9.1, hematocrit 28.6, platelet count 180,000. Sodium 140, potassium 3.6, chlorides 109, CO2 30, anion gap 1, BUN 22, and creatinine 0.99. Blood cultures are showing evidence of coag-negative staph. Chest x-ray showing bibasilar infiltrates, greatest at the left base. Progress note dated 05/15/2021. 41-year-old male again seen in room 256. The patient was extubated from mechanical ventilation, 3 days ago. He's postop day #5, status post exploratory laparotomy, gastrectomy, and repair of internal hernia. The patient's currently on 4 L nasal cannula. He is getting TPN at 70 mL an hour, and lactated Ringer's at 20 mL an hour. The patient will get another dose of Lasix 40 mg IV push. We will also give him some Mylicon tablets for his gastric distress, and get another set of blood cultures. White count 5.7, hemoglobin 9.7, hematocrit 30.7, and platelet count normal. Sodium 137, potassium 3.4, chlorides 102, CO2 34, anion gap 1, BUN 19, creatinine 0.98. Culture data shows coag-negative staph, and the blood, from May 11. There was no chest x-ray today. Progress note dated 05/16/2021. 41-year-old male, again seen in room 256. The patient's been in the hospital now for 6 days. The patient was extubated a few days ago. He is postop day #6, status post exploratory laparotomy, gastrectomy, and repair of internal hernia. The patient's currently on room air. TPN is going at 70 mL an hour. He is getting lactated Ringer's at 20 mL an hour. Remains on Zosyn, and Eraxis. In my opinion, the patient could be transferred to the general medical floor, without telemetry. Because of elevated blood pressure, we will resume his arlene nidine, and hydrochlorothiazide. White count 9.7, hemoglobin 10.2, hematocrit 31.9, and platelet count 265,000. Sodium 134, potassium 4, chlorides 100, CO2 31, anion gap 3, BUN 21, and creatinine 0.8. Glucose 139. Pro-calcitonin level is 6. C-reactive protein is 18. Objective - Vital Signs Vital signs: Vital Signs Temp 100.8 F H 05/16/21 08:00 Pulse 105 H 05/16/21 09:00 Resp 21 05/16/21 09:00 BP 135/104 05/16/21 09:00 Pulse Ox 94 L 05/16/21 07:00 Intake & Output 05/15/21 05/16/21 05/16/21 18:59 06:59 18:59 Intake Total 2129 2371.3333 483 Output Total 4910 1430 250 Balance -2781 941.3333 233 Weight 100 kg Intake: IV 1529 1242 283 Lactated Ringers 1,000 ml 220 260 40 @ 20 mls/hr IV .Q24H [facility] Rx#:[id number] MVI 840 910 140 Piperacillin-Tazobactam 3 200 100 .375 gm In Sodium Chloride 0.9% 100 ml @ 25 mls/hr IVPB Q8HR [facility] Rx# :[id number] metroNIDAZOLE-NS PMX 500 200 mg In Saline 1 100ml.bag @ 100 mls/hr IVPB Q8HR [facility] Rx#:[id number] pressure bag 69 72 3 Intake, IV Titration 400 1129.3333 100 Amount Anidulafungin 200 mg In 200 Sodium Chloride 0.9% 200 ml @ 84 mls/hr IVPB ONCE ONE Rx#:[id number] Magnesium Sulfate-D5w Pmx 100 1 gm In Dextrose/Water 1 100ml.bag @ 100 mls/hr IVPB Q1H [facility] Rx#: [id number] Magnesium Sulfate-D5w Pmx 100 1 gm In Dextrose/Water 1 100ml.bag @ 100 mls/hr IVPB Q1H [facility] Rx#: [id number] Potassium Chloride 10 meq 100 In Water For Injection 1 100ml.bag @ 100 mls/hr IVPB Q1H [facility] Rx#: [id number] Potassium Chloride 20 meq 100 In Water For Injection 1 100ml.bag @ 50 mls/hr IVPB Q2H [facility] Rx#: [id number] Sodium Phosphate 10 mmol 1029.3333 Potassium Chloride 30 meq Magnesium Sulfate gm 0.5 gm Calcium Gluconate 1 gm In Amino Acids 5 %/ Dextrose 20 % 1,000 ml @ 70 mls/hr IV .BY DURATION [facility] Rx#:[id number] Oral 200 100 Output: Drainage 30 Abdomen 30 Urine 4880 1430 250 Other: Voiding Method Indwelling Catheter Indwelling Catheter ABP, PAP, CO, CI - Last Documented Arterial Blood Pressure 146/91 - Exam No acute distress, on room air. Saturations are 94%. HEENT examination is grossly unremarkable. Neck supple. Full range of motion. No adenopathy thyromegaly or neck vein distention. Cardiovascular examination reveals regular rhythm rate. S1-S2 normal. No S3 or S4. No discernible murmur noted. Heart rate 92 bpm. Lungs reveal scattered bilateral rhonchi and no wheezes. No crackles. Breath sounds equal bilaterally. Saturations are 94%. Abdomen soft, without bowel sounds. Drainage catheters are noted. Extremities are intact. No cyanosis clubbing or edema. Skin is without rash or lesion. Neurologic examination brief but nonfocal. - Labs CBC & Chem 7: 05/16/21 03:46 05/16/21 03:46 Labs: Abnormal Lab Results - Last 24 Hours (Table) 05/15/21 05/15/21 05/15/21 Range/Units 03:25 17:45 20:55 RBC (4.30-5.90) m/uL Hgb (13.0-17.5) gm/dL Hct (39.0-53.0) % Sodium (137-145) mmol/L Carbon Dioxide (22-30) mmol/L BUN (9-20) mg/dL Glucose (74-99) mg/dL POC Glucose (mg/dL) 128 H (75-99) mg/dL Calcium (8.4-10.2) mg/dL AST (17-59) U/L C-Reactive Protein (<1.0) mg/dL Total Protein (6.3-8.2) g/dL Albumin (3.5-5.0) g/dL Triglycerides 184.00 H (0.00-149.00) mg/dL Procalcitonin (0.02-0.09) ng/mL Urine Protein 1+ H (Negative) Urine Glucose (UA) Trace H (Negative) Urine Blood Trace H (Negative) Ur Leukocyte Esterase Trace H (Negative) Urine WBC 9 H (0-5) /hpf Urine Mucus Rare H (None) /hpf 05/16/21 05/16/21 05/16/21 Range/Units 03:46 03:46 03:46 RBC 3.54 L (4.30-5.90) m/uL Hgb 10.2 L (13.0-17.5) gm/dL Hct 31.9 L (39.0-53.0) % Sodium 134 L (137-145) mmol/L Carbon Dioxide 31 H (22-30) mmol/L BUN 21 H (9-20) mg/dL Glucose 139 H (74-99) mg/dL POC Glucose (mg/dL) (75-99) mg/dL Calcium 8.0 L (8.4-10.2) mg/dL AST 84 H (17-59) U/L C-Reactive Protein 18.0 H (<1.0) mg/dL Total Protein 5.1 L (6.3-8.2) g/dL Albumin 2.4 L (3.5-5.0) g/dL Triglycerides (0.00-149.00) mg/dL Procalcitonin 6.00 H (0.02-0.09) ng/mL Urine Protein (Negative) Urine Glucose (UA) (Negative) Urine Blood (Negative) Ur Leukocyte Esterase (Negative) Urine WBC (0-5) /hpf Urine Mucus (None) /hpf 05/16/21 Range/Units 05:45 RBC (4.30-5.90) m/uL Hgb (13.0-17.5) gm/dL Hct (39.0-53.0) % Sodium (137-145) mmol/L Carbon Dioxide (22-30) mmol/L BUN (9-20) mg/dL Glucose (74-99) mg/dL POC Glucose (mg/dL) 151 H (75-99) mg/dL Calcium (8.4-10.2) mg/dL AST (17-59) U/L C-Reactive Protein (<1.0) mg/dL Total Protein (6.3-8.2) g/dL Albumin (3.5-5.0) g/dL Triglycerides (0.00-149.00) mg/dL Procalcitonin (0.02-0.09) ng/mL Urine Protein (Negative) Urine Glucose (UA) (Negative) Urine Blood (Negative) Ur Leukocyte Esterase (Negative) Urine WBC (0-5) /hpf Urine Mucus (None) /hpf Microbiology - Last 24 Hours (Table) 05/11/21 12:00 Blood Culture - Preliminary Blood No Growth after 96 hours Assessment and Plan Assessment: Postop day #6, status post exploratory laparotomy, gastrectomy, and repair of internal hernia, secondary to gastric ischemia and necrosis. Routine postoperative ventilator management, status post successful extubation on 05/12/2020. Acute kidney injury. History of hypertension. Prior history of tobacco use. Prior history of gastric bypass for obesity. Plan: Plan dated 05/11/2021. The patient will get some additional fluids. We'll give the patient 2 L of saline. In addition, the patient be started on antibiotics in the form of Zosyn and Flagyl. In addition, the patient will continue on norepinephrine. In addition, the patient will continue on propofol. An arterial line and triple lumen catheter replaced. Additional recommendations and suggestions are forthcoming. Prognosis is guarded. We will continue to follow make recommendations where appropriate. Plan dated 05/12/2021. The patient is going to be given a daily interruption of sedation and a spontaneous breathing trial today. I told the nurse to wean him off the propofol, and use dexmedetomidine for sedation or agitation. The patient has been weaned off the norepinephrine. Labs are reviewed. Medications are reviewed. We will continue to follow and make recommendations where appropriate. Prognosis is guarded. Chest x-ray does show some patchy bibasilar infiltrates and/or atelectasis, and a relatively small left-sided pleural effusion. We will continue to monitor this. Plan dated 05/13/2021. The patient was successfully extubated yesterday. That was on 05/12/2021. Today's postop day #3. We will attempt to wean the dexmedetomidine off. We did order labs and x-rays for tomorrow. In addition, I recommend an incentive spirometer, to be used hourly. Additional recommendations and suggestions are forthcoming. The patient's getting TPN at 43 mL an hour. IV fluids are turned down to 50 mL an hour. We will continue to follow make recommendations where appropriate. Overall prognosis is very guarded. Plan dated 05/14/2021. The patient was successfully extubated on May 12. The patient is postop day #4. The patient's much more awake and alert. The patient's currently on 5 L nasal cannula. That can probably be weaned bit. The patient's on TPN at 43 mL an hour. The patient's also on dexmedetomidine at 0.4 mcg/kg/h. We will continue to wean that as well. I asked the nurse to give him Lasix, 60 mg, IV push. In addition, the patient should have an incentive spirometer in the room. He should focus on deep breathing, coughing, clearing of secretions. In additi on, he should be doing incentive spirometer, every hour while awake. We will continue to follow and make recommendations where appropriate. Overall prognosis is guarded. Plan dated 05/15/2021. The patient was successfully extubated on May. He's postop day #5. He's doing relatively well. Yesterday we hit him hard with diuretics. The patient diuresed 3.4 L. We are going to give him another dose of Lasix today, he milligrams IV push. We will send another set of blood cultures. The patient has had persistent fevers overnight. In addition, we'll give him some Mylicon tablets for his gastric bloating and upset stomach. We encourage the patient to deep breathe, cough, and clear secretions. In addition, we will again doing the incentive spirometer every hour while awake. Labs and x-rays are ordered for the morning. Additional recommendations and suggestions are forthcoming. Continue to follow and make recommendations where appropriate. Prognosis is guarded. Plan dated 05/16/2021. Patient's doing well. The patient is postop day #6. The patient was successfully extubated on 05/12/2021. The patient is still having intermittent temperature elevations. He is now on Zosyn and Eraxis per infectious diseases. The patient remains on TPN. The patient has been weaned down to room air. The patient could be transferred to the general medical floor with telemetry. Bec ause of elevated blood pressures, we will resume his clonidine tablets and his hydrochlorothiazide at the bed hour. No additional recommendations are made. Prognosis is guarded. We will continue to follow the patient and make recommendations where appropriate. Time with Patient: Less than 30
--- NOTE | 2021-05-16 12:10 | P.PN ---
Subjective Progress Note Date: 05/16/21 Principal diagnosis: Gastric perforation Patient lying in bed. He had some fevers last night. Says his abdominal pain is mild and about the same as it was yesterday. Covid and flu swab negative. White blood cell count 9.7. Tolerating clears. NOAH draining serous. Objective - Vital Signs Vital signs: Vital Signs Temp 100.8 F H 05/16/21 08:00 Pulse 105 H 05/16/21 09:00 Resp 21 05/16/21 09:00 BP 135/104 05/16/21 09:00 Pulse Ox 94 L 05/16/21 07:00 Intake & Output 05/15/21 05/16/21 05/16/21 18:59 06:59 18:59 Intake Total 2129 2371.3333 663 Output Total 4910 1430 450 Balance -2781 941.3333 213 Weight 100 kg Intake: IV 1529 1242 463 Lactated Ringers 1,000 ml 220 260 80 @ 20 mls/hr IV .Q24H [facility] Rx#:[id number] MVI 840 910 280 Piperacillin-Tazobactam 3 200 100 .375 gm In Sodium Chloride 0.9% 100 ml @ 25 mls/hr IVPB Q8HR [facility] Rx# :[id number] metroNIDAZOLE-NS PMX 500 200 mg In Saline 1 100ml.bag @ 100 mls/hr IVPB Q8HR [facility] Rx#:[id number] pressure bag 69 72 3 Intake, IV Titration 400 1129.3333 100 Amount Anidulafungin 200 mg In 200 Sodium Chloride 0.9% 200 ml @ 84 mls/hr IVPB ONCE ONE Rx#:[id number] Magnesium Sulfate-D5w Pmx 100 1 gm In Dextrose/Water 1 100ml.bag @ 100 mls/hr IVPB Q1H [facility] Rx#: [id number] Magnesium Sulfate-D5w Pmx 100 1 gm In Dextrose/Water 1 100ml.bag @ 100 mls/hr IVPB Q1H [facility] Rx#: [id number] Potassium Chloride 10 meq 100 In Water For Injection 1 100ml.bag @ 100 mls/hr IVPB Q1H [facility] Rx#: [id number] Potassium Chloride 20 meq 100 In Water For Injection 1 100ml.bag @ 50 mls/hr IVPB Q2H [facility] Rx#: [id number] Sodium Phosphate 10 mmol 1029.3333 Potassium Chloride 30 meq Magnesium Sulfate gm 0.5 gm Calcium Gluconate 1 gm In Amino Acids 5 %/ Dextrose 20 % 1,000 ml @ 70 mls/hr IV .BY DURATION [facility] Rx#:[id number] Oral 200 100 Output: Drainage 30 Abdomen 30 Urine 4880 1430 450 Other: Voiding Method Indwelling Catheter Indwelling Catheter Indwelling Catheter ABP, PAP, CO, CI - Last Documented Arterial Blood Pressure 146/91 - Exam Abdomen: Soft, nondistended, mild tenderness, NOAH in place, incision without significant drainage or erythema - Labs CBC & Chem 7: 05/16/21 03:46 05/16/21 03:46 Labs: Abnormal Lab Results - Last 24 Hours (Table) 05/15/21 05/15/21 05/15/21 Range/Units 03:25 17:45 20:55 RBC (4.30-5.90) m/uL Hgb (13.0-17.5) gm/dL Hct (39.0-53.0) % Sodium (137-145) mmol/L Carbon Dioxide (22-30) mmol/L BUN (9-20) mg/dL Glucose (74-99) mg/dL POC Glucose (mg/dL) 128 H (75-99) mg/dL Calcium (8.4-10.2) mg/dL AST (17-59) U/L C-Reactive Protein (<1.0) mg/dL Total Protein (6.3-8.2) g/dL Albumin (3.5-5.0) g/dL Triglycerides 184.00 H (0.00-149.00) mg/dL Procalcitonin (0.02-0.09) ng/mL Urine Protein 1+ H (Negative) Urine Glucose (UA) Trace H (Negative) Urine Blood Trace H (Negative) Ur Leukocyte Esterase Trace H (Negative) Urine WBC 9 H (0-5) /hpf Urine Mucus Rare H (None) /hpf 05/16/21 05/16/21 05/16/21 Range/Units 03:46 03:46 03:46 RBC 3.54 L (4.30-5.90) m/uL Hgb 10.2 L (13.0-17.5) gm/dL Hct 31.9 L (39.0-53.0) % Sodium 134 L (137-145) mmol/L Carbon Dioxide 31 H (22-30) mmol/L BUN 21 H (9-20) mg/dL Glucose 139 H (74-99) mg/dL POC Glucose (mg/dL) (75-99) mg/dL Calcium 8.0 L (8.4-10.2) mg/dL AST 84 H (17-59) U/L C-Reactive Protein 18.0 H (<1.0) mg/dL Total Protein 5.1 L (6.3-8.2) g/dL Albumin 2.4 L (3.5-5.0) g/dL Triglycerides (0.00-149.00) mg/dL Procalcitonin 6.00 H (0.02-0.09) ng/mL Urine Protein (Negative) Urine Glucose (UA) (Negative) Urine Blood (Negative) Ur Leukocyte Esterase (Negative) Urine WBC (0-5) /hpf Urine Mucus (None) /hpf 05/16/21 Range/Units 05:45 RBC (4.30-5.90) m/uL Hgb (13.0-17.5) gm/dL Hct (39.0-53.0) % Sodium (137-145) mmol/L Carbon Dioxide (22-30) mmol/L BUN (9-20) mg/dL Glucose (74-99) mg/dL POC Glucose (mg/dL) 151 H (75-99) mg/dL Calcium (8.4-10.2) mg/dL AST (17-59) U/L C-Reactive Protein (<1.0) mg/dL Total Protein (6.3-8.2) g/dL Albumin (3.5-5.0) g/dL Triglycerides (0.00-149.00) mg/dL Procalcitonin (0.02-0.09) ng/mL Urine Protein (Negative) Urine Glucose (UA) (Negative) Urine Blood (Negative) Ur Leukocyte Esterase (Negative) Urine WBC (0-5) /hpf Urine Mucus (None) /hpf Microbiology - Last 24 Hours (Table) 05/11/21 12:00 Blood Culture - Preliminary Blood No Growth after 96 hours Assessment and Plan (1) Perforated bowel Narrative/Plan: Patient doing about the same as yesterday. Still having fevers. No leukocytosis or significant tachycardia. No significant pain. Continue clear liquids. Continue broad-spectrum antibiotics. Current Visit: Yes Status: Acute Code(s): K63.1 - PERFORATION OF INTESTINE (NONTRAUMATIC) SNOMED Code(s): 01116419
--- NOTE | 2021-05-16 16:26 | P.PN ---
Subjective Progress Note Date: 05/15/21 Principal diagnosis: Bowel perforation due to gastric ischemia and necrosis/ Status post exploratory laparotomy and repair of ventral hernia and partial gastrectomy Acute kidney injury due to ATN 41-year-old male with a known history of hypertension, history of bariatric surgery and hernia repair and PTSD and previous history of smoking presents to E with complaints of severe abdominal pain and vomiting. Patient was transferred from the [facility]. Patient was seen in the ER on 05/09/2020 and presented back to the hospital with complaints of abdominal pain. Patient underwent gastric bypass surgery in [place] and had similar complaints of pain and was diagnosed with internal hernia. CT abdomen pelvis showed pneumoperitoneum interval development of free fluid within the abdomen consistent with probable bowel perforation and obstruction as previously reported. Chest x-ray showed low lung volumes with the left greater than right bilateral linear scarring and atelectasis. Patient underwent repair of ventral hernia and partial gastrectomy. He was transferred to MICU. Patient is currently mechanical ventilator and intubated. Sedated and paralyzed. Laboratory data showed WBC 4.0 hemoglobin 18.3 and platelets 481 BUN 24 and creatinine 2.66 Lactic acid 12.3 on admission calcium 10.4 troponin 0 0.108 Amylase 861 lipase 5 07/10/2019 COVID-19 PCR not detected 05/14/2021 Patient seen and evaluated in follow-up; extubated from mechanical ventilation; status post exploratory laparotomy, gastrectomy, and repair of internal hernia, postop day #4. Vital signs are reviewed and patient is currently on 5 L nasal cannula, temperature of 99.9, pulse 64, respiration 15 and blood pressure 140 01/07/2008. White count 6.1, hemoglobin 9.1, hematocrit 28.6, platelet count 180,000. Sodium 140, potassium 3.6, chlorides 109, CO2 30, anion gap 1, BUN 22, and creatinine 0.99. Blood cultures are showing evidence of coag-negative staph. Chest x-ray showing bibasilar infiltrates, greatest at the left base. Currently, he's on TPN at 43 mL an hour. He still on Precedex at 0.4 mcg/kg/h, and lactated Ringer's at 20 mL an hour. Patient received Lasix 60 mg IV 1 per textile conversion manager recommendations; recommended to continue to use incentive spirometry every one hour while awake, deep breathing, coughing and clearing of secretions 05/15/2021 The patient was seen and evaluated in ICU; extubated from mechanical ventilation, 3 days ago. Patient is postop day #5, status post exploratory laparotomy, gastrectomy, and repair of internal hernia. Discussed with nursing staff; requesting stool softener Currently on 4 L nasal cannula. He is getting TPN at 70 mL an hour, and lactated Ringer's at 20 mL an hour. The patient will get another dose of Lasix 40 mg IV push. Blood work is reviewed and reveals White count 5.7, hemoglobin 9.7, hematocrit 30.7, and platelet count normal. Sodium 137, potassium 3.4, chlorides 102, CO2 34, anion gap 1, BUN 19, creatinine 0.98. Blood cultures reportedly revealed staph aureus; coronaries recommending to repeat blood cultures Possible transfer to general medical floor this afternoon Objective - Vital Signs Vital signs: Vital Signs Temp 99 F 05/15/21 12:00 Pulse 101 H 05/15/21 14:00 Resp 27 H 05/15/21 14:00 BP 135/100 05/15/21 14:00 Pulse Ox 100 05/15/21 14:00 Intake & Output 05/14/21 05/15/21 05/15/21 18:59 06:59 18:59 Intake Total 6510.910 7337.0 1348 Output Total 4580 1675 4330 Balance -2915.620 -508.0 -2982 Weight 100.4 kg 106.5 kg Intake: IV 1597.0 1167.0 948 Lactated Ringers 1,000 ml 240 140 140 @ 20 mls/hr IV .Q24H [facility] Rx#:[id number] MVI 510.0 730.0 560 Piperacillin-Tazobactam 3 175 125 100 .375 gm In Sodium Chloride 0.9% 100 ml @ 25 mls/hr IVPB Q8HR [facility] Rx# :[id number] Potassium Chloride 10 meq 400 In Water For Injection 1 100ml.bag @ 100 mls/hr IVPB Q1H [facility] Rx#: [id number] metroNIDAZOLE-NS PMX 500 200 100 100 mg In Saline 1 100ml.bag @ 100 mls/hr IVPB Q8HR [facility] Rx#:[id number] pressure bag 72 72 48 Intake, IV Titration 67.380 200 Amount Dexmedetomidine/0.9% NaCl 67.380 (Pmx) 400 mcg In Empty Bag 1 bag @ 0.2 MCG/KG/HR 5.025 mls/hr IV .[id number] [facility] Rx#:[id number] Magnesium Sulfate-D5w Pmx 100 1 gm In Dextrose/Water 1 100ml.bag @ 100 mls/hr IVPB Q1H [facility] Rx#: [id number] Potassium Chloride 20 meq 100 In Water For Injection 1 100ml.bag @ 50 mls/hr IVPB Q2H [facility] Rx#: [id number] Oral 200 Output: Drainage 5 30 Abdomen 5 30 Urine 4575 1675 4300 Other: Voiding Method Indwelling Catheter Indwelling Catheter Indwelling Catheter ABP, PAP, CO, CI - Last Documented Arterial Blood Pressure 150/97 - Exam Patient is lying in the bed comfortably, no acute distress, awake alert and oriented.. HEENT: Normocephalic. Neck is supple. Pupils reactive. Nostrils clear. Oral cavity is moist. Neck reveals no JVD, carotid bruits, or thyromegaly. CHEST EXAMINATION: Trachea is central. Symmetrical expansion. Bibasilar diminished sounds. No wheezing or rhonchi.. CARDIAC: Normal S1, S2 with no gallops. No murmurs ABDOMEN: Soft. Abdominal surgical site is bandaged. Bowel sounds diminished.. No abdominal br uits. Extremities: reveal no edema. No clubbing or cyanosis Neurologically awake, alert, oriented x3 with well-coordinated movements. No focal deficits noted Skin: No rash or skin lesions. - Labs CBC & Chem 7: 05/16/21 03:46 05/16/21 03:46 Labs: Abnormal Lab Results - Last 24 Hours (Table) 05/14/21 05/14/21 05/15/21 Range/Units 14:51 18:07 03:25 RBC 3.38 L (4.30-5.90) m/uL Hgb 9.7 L (13.0-17.5) gm/dL Hct 30.7 L (39.0-53.0) % Lymphocytes # 0.8 L (1.0-4.8) k/uL Potassium 3.2 L (3.5-5.1) mmol/L Carbon Dioxide (22-30) mmol/L Glucose 130 H (74-99) mg/dL POC Glucose (mg/dL) 111 H (75-99) mg/dL Calcium 7.5 L (8.4-10.2) mg/dL AST 147 H (17-59) U/L Total Protein 4.9 L (6.3-8.2) g/dL Albumin 2.3 L (3.5-5.0) g/dL 05/15/21 05/15/21 Range/Units 03:25 06:18 RBC (4.30-5.90) m/uL Hgb (13.0-17.5) gm/dL Hct (39.0-53.0) % Lymphocytes # (1.0-4.8) k/uL Potassium 3.4 L (3.5-5.1) mmol/L Carbon Dioxide 34 H (22-30) mmol/L Glucose 139 H (74-99) mg/dL POC Glucose (mg/dL) 125 H (75-99) mg/dL Calcium 7.7 L (8.4-10.2) mg/dL AST (17-59) U/L Total Protein (6.3-8.2) g/dL Albumin (3.5-5.0) g/dL Microbiology - Last 24 Hours (Table) 05/11/21 12:00 Blood Culture - Preliminary Blood No Growth after 72 hours 05/11/21 15:56 Blood Culture Gram Stain - Final Blood Blood Culture - Final Coagulase Negative Staph Assessment and Plan Assessment: Bowel perforation due to gastric ischemia and necrosis. Status post exploratory laparotomy and repair of ventral hernia and partial gastrectomy. Postoperative day 3. Acute kidney injury due to ATN, cr 2.66-->2.01--1.32 Hyperkalemia secondary to acute kidney injury. resolved Mild transaminitis Elevated lipase level Hypertension History of smoking Previous history of gastric bypass surgery and history of ventral hernia.. DVT prophylaxis. With Lovenox subcu. plan: Patient is currently in MICU. Patient is extubated on 05/12/2021. Levophed is tapered off. Continue with IV hydration, broad-spectrum antibiotics in the form of Zosyn, Flagyl and fluconazole. Follow culture reports. Monitor renal function closely. Pulmonary, ID and general surgery is on board. will continue to follow closely and further recommendations based on clinical course. Prognosis is guarded at this time.
--- NOTE | 2021-05-16 16:30 | P.PN ---
Subjective Progress Note Date: 05/16/21 Principal diagnosis: Bowel perforation due to gastric ischemia and necrosis/ Status post exploratory laparotomy and repair of ventral hernia and partial gastrectomy Acute kidney injury due to ATN 41-year-old male with a known history of hypertension, history of bariatric surgery and hernia repair and PTSD and previous history of smoking presents to E with complaints of severe abdominal pain and vomiting. Patient was [facility]. Patient was seen in the ER on 05/09/2020 and presented back to the hospital with complaints of abdominal pain. Patient underwent gastric bypass surgery in [place] and had similar complaints of pain and was diagnosed with internal hernia. CT abdomen pelvis showed pneumoperitoneum interval development of free fluid within the abdomen consistent with probable bowel perforation and obstruction as previously reported. Chest x-ray showed low lung volumes with the left greater than right bilateral linear scarring and atelectasis. Patient underwent repair of ventral hernia and partial gastrectomy. He was transferred to MICU. Patient is currently mechanical ventilator and intubated. Sedated and paralyzed. Laboratory data showed WBC 4.0 hemoglobin 18.3 and platelets 481 BUN 24 and creatinine 2.66 Lactic acid 12.3 on admission calcium 10.4 troponin 0 0.108 Amylase 861 lipase 5 07/10/2019 COVID-19 PCR not detected 05/14/2021 Patient seen and evaluated in follow-up; extubated from mechanical ventilation; status post exploratory laparotomy, gastrectomy, and repair of internal hernia, postop day #4. Vital signs are reviewed and patient is currently on 5 L nasal cannula, temperature of 99.9, pulse 64, respiration 15 and blood pressure 140 01/07/2008. White count 6.1, hemoglobin 9.1, hematocrit 28.6, platelet count 180,000. Sodium 140, potassium 3.6, chlorides 109, CO2 30, anion gap 1, BUN 22, and creatinine 0.99. Blood cultures are showing evidence of coag-negative staph. Chest x-ray showing bibasilar infiltrates, greatest at the left base. Currently, he's on TPN at 43 mL an hour. He still on Precedex at 0.4 mcg/kg/h, and lactated Ringer's at 20 mL an hour. Patient received Lasix 60 mg IV 1 per detacker recommendations; recommended to continue to use incentive spirometry every one hour while awake, deep breathing, coughing and clearing of secretions 05/15/2021 The patient was seen and evaluated in ICU; extubated from mechanical ventilation, 3 days ago. Patient is postop day #5, status post exploratory laparotomy, gastrectomy, and repair of internal hernia. Discussed with nursing staff; requesting stool softener Currently on 4 L nasal cannula. He is getting TPN at 70 mL an hour, and lactated Ringer's at 20 mL an hour. The patient will get another dose of Lasix 40 mg IV push. Blood work is reviewed and reveals White count 5.7, hemoglobin 9.7, hematocrit 30.7, and platelet count normal. Sodium 137, potassium 3.4, chlorides 102, CO2 34, anion gap 1, BUN 19, creatinine 0.98. Blood cultures reportedly revealed staph aureus; coronaries recommending to repeat blood cultures Possible transfer to general medical floor this afternoon 05/16/2021 Patient is seen and evaluated in ICU; postop day #6, status post exploratory laparotomy, gastrectomy, and repair of internal hernia. The patient's currently on room air. Remains on TPN at 70 mL an hour. He is getting lactated Ringer's at 20 mL an hour. Remains on Zosyn, and Eraxis. In my opinion, the patient could be transferred to the general medical floor, without telemetry. Because of elevated blood pressure, we will resume his clonidine, and hydrochlorothiazide. White count 9.7, hemoglobin 10.2, hematocrit 31.9, and platelet count 265,000. Sodium 134, potassium 4, chlorides 100, CO2 31, anion gap 3, BUN 21, and cre atinine 0.8, Glucose 139, Procalcitonin 6. CRP 18. Patient continues to have intermittent elevated temperature; remains on Zosyn and Eraxis per ID recommendations Transfer to general medical floor Objective - Vital Signs Vital signs: Vital Signs Temp 99.2 F 05/16/21 12:00 Pulse 91 05/16/21 12:00 Resp 16 05/16/21 12:00 BP 111/78 05/16/21 12:00 Pulse Ox 93 L 05/16/21 12:00 Intake & Output 05/15/21 05/16/21 05/16/21 18:59 06:59 18:59 Intake Total 2129 2371.3333 843 Output Total 4910 1430 450 Balance -2781 941.3333 393 Weight 100 kg Intake: IV 1529 1242 643 Lactated Ringers 1,000 ml 220 260 120 @ 20 mls/hr IV .Q24H [facility] Rx#:[id number] MVI 840 910 420 Piperacillin-Tazobactam 3 200 100 .375 gm In Sodium Chloride 0.9% 100 ml @ 25 mls/hr IVPB Q8HR [facility] Rx# :[id number] metroNIDAZOLE-NS PMX 500 200 mg In Saline 1 100ml.bag @ 100 mls/hr IVPB Q8HR [facility] Rx#:[id number] pressure bag 69 72 3 Intake, IV Titration 400 1129.3333 100 Amount Anidulafungin 200 mg In 200 Sodium Chloride 0.9% 200 ml @ 84 mls/hr IVPB ONCE ONE Rx#:[id number] Magnesium Sulfate-D5w Pmx 100 1 gm In Dextrose/Water 1 100ml.bag @ 100 mls/hr IVPB Q1H [facility] Rx#: [id number] Magnesium Sulfate-D5w Pmx 100 1 gm In Dextrose/Water 1 100ml.bag @ 100 mls/hr IVPB Q1H [facility] Rx#: [id number] Potassium Chloride 10 meq 100 In Water For Injection 1 100ml.bag @ 100 mls/hr IVPB Q1H [facility] Rx#: [id number] Potassium Chloride 20 meq 100 In Water For Injection 1 100ml.bag @ 50 mls/hr IVPB Q2H [facility] Rx#: [id number] Sodium Phosphate 10 mmol 1029.3333 Potassium Chloride 30 meq Magnesium Sulfate gm 0.5 gm Calcium Gluconate 1 gm In Amino Acids 5 %/ Dextrose 20 % 1,000 ml @ 70 mls/hr IV .BY DURATION [facility] Rx#:[id number] Oral 200 100 Output: Drainage 30 Abdomen 30 Urine 4880 1430 450 Other: Voiding Method Indwelling Catheter Indwelling Catheter Indwelling Catheter # Bowel Movements 1 ABP, PAP, CO, CI - Last Documented Arterial Blood Pressure 146/91 - Exam Patient is lying in the bed comfortably, no acute distress, awake alert and oriented.. HEENT: Normocephalic. Neck is supple. Pupils reactive. Nostrils clear. Oral cavity is moist. Neck reveals no JVD, carotid bruits, or thyromegaly. CHEST EXAMINATION: Trachea is central. Symmetrical expansion. Bibasilar diminished sounds. No wheezing or rhonchi.. CARDIAC: Normal S1, S2 with no gallops. No murmurs ABDOMEN: Soft. Abdominal surgical site is bandaged. Bowel sounds diminished.. No abdominal bruits. Extremities: reveal no edema. No clubbing or cyanosis Neurologically awake, alert, oriented x3 with well-coordinated movements. No focal deficits noted Skin: No rash or skin lesions. - Labs CBC & Chem 7: 05/16/21 03:46 05/16/21 03:46 Labs: Abnormal Lab Results - Last 24 Hours (Table) 05/15/21 05/15/21 05/15/21 Range/Units 03:25 17:45 20:55 RBC (4.30-5.90) m/uL Hgb (13.0-17.5) gm/dL Hct (39.0-53.0) % Sodium (137-145) mmol/L Carbon Dioxide (22-30) mmol/L BUN (9-20) mg/dL Glucose (74-99) mg/dL POC Glucose (mg/dL) 128 H (75-99) mg/dL Calcium (8.4-10.2) mg/dL AST (17-59) U/L C-Reactive Protein (<1.0) mg/dL Total Protein (6.3-8.2) g/dL Albumin (3.5-5.0) g/dL Triglycerides 184.00 H (0.00-149.00) mg/dL Procalcitonin (0.02-0.09) ng/mL Urine Protein 1+ H (Negative) Urine Glucose (UA) Trace H (Negative) Urine Blood Trace H (Negative) Ur Leukocyte Esterase Trace H (Negative) Urine WBC 9 H (0-5) /hpf Urine Mucus Rare H (None) /hpf 05/16/21 05/16/21 05/16/21 Range/Units 03:46 03:46 03:46 RBC 3.54 L (4.30-5.90) m/uL Hgb 10.2 L (13.0-17.5) gm/dL Hct 31.9 L (39.0-53.0) % Sodium 134 L (137-145) mmol/L Carbon Dioxide 31 H (22-30) mmol/L BUN 21 H (9-20) mg/dL Glucose 139 H (74-99) mg/dL POC Glucose (mg/dL) (75-99) mg/dL Calcium 8.0 L (8.4-10.2) mg/dL AST 84 H (17-59) U/L C-Reactive Protein 18.0 H (<1.0) mg/dL Total Protein 5.1 L (6.3-8.2) g/dL Albumin 2.4 L (3.5-5.0) g/dL Triglycerides (0.00-149.00) mg/dL Procalcitonin 6.00 H (0.02-0.09) ng/mL Urine Protein (Negative) Urine Glucose (UA) (Negative) Urine Blood (Negative) Ur Leukocyte Esterase (Negative) Urine WBC (0-5) /hpf Urine Mucus (None) /hpf 05/16/21 Range/Units 05:45 RBC (4.30-5.90) m/uL Hgb (13.0-17.5) gm/dL Hct (39.0-53.0) % Sodium (137-145) mmol/L Carbon Dioxide (22-30) mmol/L BUN (9-20) mg/dL Glucose (74-99) mg/dL POC Glucose (mg/dL) 151 H (75-99) mg/dL Calcium (8.4-10.2) mg/dL AST (17-59) U/L C-Reactive Protein (<1.0) mg/dL Total Protein (6.3-8.2) g/dL Albumin (3.5-5.0) g/dL Triglycerides (0.00-149.00) mg/dL Procalcitonin (0.02-0.09) ng/mL Urine Protein (Negative) Urine Glucose (UA) (Negative) Urine Blood (Negative) Ur Leukocyte Esterase (Negative) Urine WBC (0-5) /hpf Urine Mucus (None) /hpf Microbiology - Last 24 Hours (Table) 05/11/21 12:00 Blood Culture - Preliminary Blood No Growth after 96 hours Assessment and Plan Assessment: Bowel perforation due to gastric ischemia and necrosis. Status post exploratory laparotomy and repair of ventral hernia and partial gastrectomy. Postoperative day 3. Acute kidney injury due to ATN, cr 2.66-->2.01--1.32 Hyperkalemia secondary to acute kidney injury. resolved Mild transaminitis Elevated lipase level Hypertension History of smoking Previous history of gastric bypass surgery and history of ventral hernia.. DVT prophylaxis. With Lovenox subcu. plan: Patient is currently in MICU. Patient is extubated on 05/12/2021. Levophed is tapered off. Continue with IV hydration, broad-spectrum antibiotics in the form of Zosyn, Flagyl and fluconazole. Follow culture reports. Monitor renal function closely. Pulmonary, ID and general surgery is on board. will continue to follow closely and further recommendations based on clinical course. Prognosis is guarded at this time.
[2021-05-16] MEDS: 1: MVI, ADULT NO.4 WITH VIT K 10 ML, TRACE (CONC-1ML/DOSE) 1 ML, SODIUM PHOSPHATE 15 MMO IV SCH ×7 (17:15)
[2021-05-16] MEDS: ANIDULAFUNGIN 100 MG in SODIUM CHLORIDE 0.9% 100 ML IVPB SCH (17:16)
[2021-05-16] MEDS: HYDROcodone/APAP 10-325MG 1 EACH TAB PO PRN (17:40)
[2021-05-16] MEDS: SENNOSIDES 8.6 MG TAB PO SCH (21:21)
[2021-05-16] MEDS: hydroCHLOROthiazide 25 MG TAB PO SCH (21:21)
[2021-05-17] MEDS: PIPERACILLIN-TAZOBACTAM 3.375 GM in SODIUM CHLORIDE 0.9% 100 ML IVPB SCH ×4 (00:30→23:55)
[2021-05-17] MEDS: SIMETHICONE 80 MG CHEWABLE PO SCH ×5 (00:31→20:39)
[2021-05-17] MEDS: LACTATED RINGERS 1,000 ML IV SCH ×2 (00:36→20:40)
[2021-05-17] MEDS: HYDROmorphone 1 MG/ML 1 ML SYRINGE IVP PRN ×5 (02:40→23:49)
[2021-05-17] MEDS: IBUPROFEN 400 MG TAB PO PRN (02:55)
--- NOTE | 2021-05-17 05:56 | PN ---
PROGRESS NOTE DATE OF SERVICE: 05/16/2021 REASON FOR FOLLOW UP: Secondary peritonitis from ischemic stomach. INTERVAL HISTORY: The patient is afebrile. The patient is breathing comfortably. Patient denies any chest pain. No shortness of breath. He did have a cough and bringing up some purulent sputum. No hemoptysis. Abdominal pain is currently controlled and no diarrhea. PHYSICAL EXAMINATION: Blood pressure 111/72 with a pulse of 82, temperature 99.6. He is 90% on room air. General description is a middle-aged male lying in bed in no distress. Respiratory system: Unlabored breathing, decreased intensity in breath sounds, with no wheeze. Heart S1, S2. Regular rate. Abdomen soft, no tenderness. LABS: Hemoglobin is 10.1, white count 9.7, creatinine . DIAGNOSTIC IMPRESSION AND PLAN: Patient with abdominal sepsis herniation and ischemic stomach status post partial gastrectomy. The patient is currently covered with Zosyn and Eraxis to continue while obtaining a sputum and follow cultures and adjust antibiotic further if needed. MMODL / IJN: [id number] /
[2021-05-17 06:59] LABS: African American GFR (CKD) >90 (>60 ml/min/1.73 sqM); Anion Gap 5 mmol/L; Blood Urea Nitrogen 24 mg/dL (9-20); Calcium 8.5 mg/dL (8.4-10.2); Carbon Dioxide 26 mmol/L (22-30); Chloride 102 mmol/L (98-107); Glucose 105 mg/dL (74-99); Magnesium 1.8 mg/dL (1.6-2.3); Non-African American GFR(CKD) 84 (>60 ml/min/1.73 sqM); Phosphorus 3.4 mg/dL (2.5-4.5); Potassium 4.1 mmol/L (3.5-5.1); Sodium 133 mmol/L (137-145)
[2021-05-17 07:06] LABS: Glucose,Whole Blood 90 mg/dL (75-99)
[2021-05-17] MEDS: IPRATROPIUM-ALBUTEROL 3 ML NEB INHALATION SCH ×4 (08:29→20:21)
[2021-05-17 08:54] LABS: Basophils % (A) 0 %; Eosinophils # (A) 0.2 k/uL (0-0.7); Eosinophils % (A) 2 %; HCT 33.9 % (39.0-53.0); HGB 10.3 gm/dL (13.0-17.5); Hypochromasia Moderate; Lymphocytes # (A) 1.3 k/uL (1.0-4.8); Lymphocytes % (A) 12 %; MCH 28.7 pg (25.0-35.0); MCHC 30.3 g/dL (31.0-37.0); MCV 94.5 fL (80.0-100.0); Mean Platelet Volume 8.6; Monocytes # (A) 0.6 k/uL (0-1.0); Monocytes % (A) 5 %; Neutrophils # (A) 8.4 k/uL (1.3-7.7); Neutrophils % (A) 79 %; Platelet Count 376 k/uL (150-450); RBC 3.59 m/uL (4.30-5.90); RDW 14.5 % (11.5-15.5); WBC 10.7 k/uL (3.8-10.6)
[2021-05-17] MEDS ORDERED: FAT EMULSION 20% 500 ML IV SCH (09:00)
[2021-05-17] MEDS: ENOXAPARIN 40 MG/0.4 ML SYRINGE SQ SCH (09:42)
[2021-05-17] MEDS: PANTOPRAZOLE 40 MG/10 ML VIAL IVP SCH (09:42)
[2021-05-17] MEDS: cloNIDine HCL 0.2 MG TAB PO SCH ×2 (09:42→20:38)
[2021-05-17] MEDS: SENNOSIDES 8.6 MG TAB PO SCH ×2 (09:42→20:40)
[2021-05-17 11:58] LABS: Glucose,Whole Blood 125 mg/dL (75-99)
--- NOTE | 2021-05-17 13:57 | P.PN ---
Subjective Progress Note Date: 05/17/21 CHIEF COMPLAINT: Abdominal pain HISTORY OF PRESENT ILLNESS: Patient is postop day #7 status post repair of internal hernia and partial gastrectomy for internal hernia with obstruction and necrotic stomach. Patient remains in the ICU. He was extubated on 05/12/2021. He is lying in bed comfortably. He is on TPN for nutrition support. He is having flatus. He is asking to get out of bed. Patient had low-grade temp of 100 this morning. Patient receiving a dose o patient is on a regular medical floor. He is tolerating clear liquid diet. He is having bowel movements and flatus. He reports feeling hungry. He did have a temp of 102.7 at 2 AM. Temperature now 98.4. He reports that his pain is controlled. Denies any nausea or vomiting. WBC 10.7 hemoglobin 10.3 sodium 133 potassium 4.1 creati nine 1.09 patient is followed by ID service. On Zosyn and Eraxis PHYSICAL EXAM: VITAL SIGNS: Reviewed. GENERAL: Well-developed in no acute distress. HEENT: No sclera icterus. Moist buccal mucosa. Head is atraumatic, normocephalic. ABDOMEN: Soft. Nondistended. Incision site clean dry and intact. Dressing is saturated with yellowish brownish drainage. Has [address] NEUROLOGIC: Awake but sleepy ASSESSMENT: 1. Internal hernia with obstruction and necrotic stomach status post exp loratory laparotomy, repair of internal hernia and partial gastrectomy 2. Pneumoperitoneum PLAN: -Advance diet to full liquids -Start to wean off TPN -Encouraged patient to increase activity level -Encouraged patient to use incentive spirometer -Continue supportive care -Continue antibiotics per ID -Continue DVT prophylaxis Lovenox Physician Airplane Captain note has been reviewed by physician. Signing provider agrees with the documented findings, assessment, and plan of care. Objective - Vital Signs Vital signs: Vital Signs Temp 98.4 F 05/17/21 11:53 Pulse 92 05/17/21 11:53 Resp 16 05/17/21 11:53 BP 112/79 05/17/21 11:53 Pulse Ox 98 05/17/21 11:53 Intake & Output 05/16/21 05/17/21 05/17/21 18:59 06:59 18:59 Intake Total 943 Output Total 675 20 20 Balance 268 -20 -20 Weight 100 kg Intake: IV 743 Lactated Ringers 1,000 ml 120 @ 20 mls/hr IV .Q24H [facility] Rx#:[id number] MVI 420 Piperacillin-Tazobactam 3 200 .375 gm In Sodium Chloride 0.9% 100 ml @ 25 mls/hr IVPB Q8HR [facility] Rx# :[id number] pressure bag 3 Intake, IV Titration 100 Amount Magnesium Sulfate-D5w Pmx 100 1 gm In Dextrose/Water 1 100ml.bag @ 100 mls/hr IVPB Q1H [facility] Rx#: [id number] Oral 100 Output: Drainage 20 20 Abdomen 20 20 Urine 675 Other: Voiding Method Indwelling Catheter Indwelling Catheter Urinal # Bowel Movements 1 ABP, PAP, CO, CI - Last Documented Arterial Blood Pressure 146/91 - Labs CBC & Chem 7: 05/17/21 06:21 05/17/21 06:21 Labs: Abnormal Lab Results - Last 24 Hours (Table) 05/17/21 05/17/21 05/17/21 Range/Units 06:21 06:21 11:57 WBC 10.7 H (3.8-10.6) k/uL RBC 3.59 L (4.30-5.90) m/uL Hgb 10.3 L (13.0-17.5) gm/dL Hct 33.9 L (39.0-53.0) % MCHC 30.3 L (31.0-37.0) g/dL Neutrophils # 8.4 H (1.3-7.7) k/uL Sodium 133 L (137-145) mmol/L BUN 24 H (9-20) mg/dL Glucose 105 H (74-99) mg/dL POC Glucose (mg/dL) 125 H (75-99) mg/dL Microbiology - Last 24 Hours (Table) 05/15/21 21:49 Blood Culture - Preliminary Blood No Growth after 24 hours 05/15/21 21:49 Blood Culture - Preliminary Blood No Growth after 24 hours 05/15/21 17:37 Blood Culture - Preliminary Blood No Growth after 24 hours 05/11/21 12:00 Blood Culture - Preliminary Blood No Growth after 120 hours
[2021-05-17] MEDS: 1: MVI, ADULT NO.4 WITH VIT K 10 ML, TRACE (CONC-1ML/DOSE) 1 ML, SODIUM PHOSPHATE 15 MMO IV SCH ×7 (15:30)
--- NOTE | 2021-05-17 15:48 | P.PN ---
Subjective Progress Note Date: 05/17/21 Principal diagnosis: Status post exploratory laparotomy, gastrectomy On 05/17/2021 patient is seen in follow-up on medical surgical floor, patient was transferred out of intensive care unit yesterday on 05/16/2021, patient is status post exploratory laparotomy, and gastrectomy and repair of internal hernia secondary to gastric ischemia and necrosis on 05/10/2021. Following the procedure he was kept intubated and sedated, and was recovering in the intensive care unit, eventually patient was successfully weaned and extubated, tolerating extubated quite well so far, he is currently on room air, denies any shortness of breath, his pulse ox of 98%, vital signs have been stable, patient did have a fever last night with a temp of 102.7F. His abdominal incision is clean dry and intact, patient had a couple bowel movements, abdomen is soft, nontender, NOAH drain with minimal output, patient's TPN has been weaned off and patient is being started on full liquid diet, no nausea vomiting or diarrhea. He remains on antibiotics with Eraxis and Zosyn. Objective - Vital Signs Vital signs: Vital Signs Temp 98.4 F 05/17/21 11:53 Pulse 92 05/17/21 11:53 Resp 16 05/17/21 11:53 BP 112/79 05/17/21 11:53 Pulse Ox 98 05/17/21 11:53 Intake & Output 05/16/21 05/17/21 05/17/21 18:59 06:59 18:59 Intake Total 943 Output Total 675 20 20 Balance 268 -20 -20 Weight 100 kg Intake: IV 743 Lactated Ringers 1,000 ml 120 @ 20 mls/hr IV .Q24H KISHA Rx#:[id number] MVI 420 Piperacillin-Tazobactam 3 200 .375 gm In Sodium Chloride 0.9% 100 ml @ 25 mls/hr IVPB Q8HR K[facility]HA Rx# :[id number] pressure bag 3 Intake, IV Titration 100 Amount Magnesium Sulfate-D5w Pmx 100 1 gm In Dextrose/Water 1 100ml.bag @ 100 mls/hr IVPB Q1H KISHA Rx#: [id number] Oral 100 Output: Drainage 20 20 Abdomen 20 20 Urine 675 Other: Voiding Method Indwelling Catheter Indwelling Catheter Urinal # Bowel Movements 1 2 ABP, PAP, CO, CI - Last Documented Arterial Blood Pressure 146/91 - Exam GENERAL EXAM: Alert, very pleasant, 41-year-old white male, In the recliner, on room air, with a pulse ox of 98% comfortable in no apparent distress. HEAD: Normocephalic/atraumatic. EYES: Normal reaction of pupils, equal size. Conjunctiva pink, sclera white. NOSE: Clear with pink turbinates. THROAT: No erythema or exudates. NECK: No masses, no JVD, no thyroid enlargement, no adenopathy. CHEST: No chest wall deformity. Symmetrical expansion. LUNGS: Equal air entry with no crackles, wheeze, rhonchi or dullness. CVS: Regular rate and rhythm, normal S1 and S2, no gallops, no murmurs, no rubs ABDOMEN: Soft, nontender. No hepatosplenomegaly, normal bowel sounds, no guarding or rigidity. Abdominal incision is clean dry and intact, covered with surgical dressing, NOAH drain in the right abdomen, with minimal output compressed and draining EXTREMITIES: No clubbing, no edema, no cyanosis, 2+ pulses and upper and lower extremities. MUSCULOSKELETAL: Muscle strength and tone normal. SPINE: No scoliosis or deformity SKIN: No rashes CENTRAL NERVOUS SYSTEM: Alert and oriented -3. No focal deficits, tone is normal in all 4 extremities. PSYCHIATRIC: Alert and oriented -3. Appropriate affect. Intact judgment and insight. - Labs CBC & Chem 7: 05/17/21 06:21 05/17/21 06:21 Labs: Abnormal Lab Results - Last 24 Hours (Table) 05/17/21 05/17/21 05/17/21 Range/Units 06:21 06:21 11:57 WBC 10.7 H (3.8-10.6) k/uL RBC 3.59 L (4.30-5.90) m/uL Hgb 10.3 L (13.0-17.5) gm/dL Hct 33.9 L (39.0-53.0) % MCHC 30.3 L (31.0-37.0) g/dL Neutrophils # 8.4 H (1.3-7.7) k/uL Sodium 133 L (137-145) mmol/L BUN 24 H (9-20) mg/dL Glucose 105 H (74-99) mg/dL POC Glucose (mg/dL) 125 H (75-99) mg/dL Microbiology - Last 24 Hours (Table) 05/11/21 12:00 Blood Culture - Final Blood No Growth after 144 hours 05/15/21 21:49 Blood Culture - Preliminary Blood No Growth after 24 hours 05/15/21 21:49 Blood Culture - Preliminary Blood No Growth after 24 hours 05/15/21 17:37 Blood Culture - Preliminary Blood No Growth after 24 hours Assessment and Plan Plan: Assessment: #1. Acute hypoxic respiratory failure related to intra-abdominal sepsis, and patchy infiltrates possibly related to fluid overload, recovered, patient is currently on room air, was mechanically ventilated in the postoperative period, was successfully weaned and extubated on 05/12/2021 #2. Perforated viscus, internal hernia with obstruction, necrotic stomach, status post repair of ventral hernia, partial gastrectomy on 05/10/2021 #3. Abdominal pain, vomiting related to the above, resolved #4. History of gastric bypass for obesity #5. Acute kidney injury, recovered #6. History of hypertension #7. Morbid obesity with BMI of 35.6 kg/m Plan: Follow-up chest x-ray tomorrow Clinical patient is stable, breathing comfortably, he is on room air Vital signs have been stable, 1 episode of fever Continue nebulized bronchodilators, continue Incentive spirometry use GI and DVT prophylaxis Oral feedings of being advanced, TPN will be discontinued Increase activity as tolerated Follow his clinical course I performed a history & physical examination of the patient and discussed their management with my nurse practitioner, Eliza Pettit. I reviewed the nurse practitioner's note and agree with the documented findings and plan of care. Lung sounds are positive for dim breath sounds throughout the lung brown. The findings and the impression was discussed with the patient. I attest to the documentation by the nurse practitioner. Time with Patient: Less than 30
[2021-05-17] MEDS: ANIDULAFUNGIN 100 MG in SODIUM CHLORIDE 0.9% 100 ML IVPB SCH (17:21)
[2021-05-17] MEDS: hydroCHLOROthiazide 25 MG TAB PO SCH (20:38)
--- NOTE | 2021-05-17 20:46 | PN ---
PROGRESS NOTE DATE OF SERVICE: 05/17/2021 This 41-year-old gentleman was admitted with bowel perforation with gastric ischemia and necrosis, is being closely monitored. No chest pain. No palpitations. No fever. The patient had a Yolanda-en-Y gastric bypass previously. PHYSICAL EXAMINATION: Alert and oriented x3. Pulse 92, blood pressure 113/79, respirations 16, temperature 98.4, pulse ox 98% on room air. HEENT: Conjunctivae normal. Oral mucosa moist. NECK: No jugular venous distention. No lymph node enlargement. CARDIOVASCULAR: S1, S2, muffled. No S3, no S4, RESPIRATORY: Diminished breath sounds at the bases. A few scattered rhonchi. ABDOMEN: Status post surgery. LEGS: No edema, no swelling. NERVOUS SYSTEM: No focal deficits. LABS: WBC10.7, sodium 133, potassium 4.1 and glucose is 105. procalcitonin is 6. ASSESSMENT: 1. Acute bowel perforation due to gastric ischemia and necrosis, status post exploratory laparotomy, repair of ventral hernia and partial gastrectomy. 2. Acute kidney injury secondary to acute tubular necrosis. 3. Hyperkalemia. 4. Mild transaminitis. 5. Elevated lipase level. 6. Hypertension. 7. Hyponatremia. 8. Increased WBC. 9. Anemia, normocytic. 10.History of hypertension. 11.History of PTSD. 12.History of nicotine dependence. 13.FULL CODE. RECOMMENDATIONS: In his 41-year-old gentleman who presented with multiple complex medical issues, we will monitor the patient closely, continue the current medications, continue symptomatic treatment. Otherwise, closely follow with surgery. Continue with TPN. Repeat labs. Continue with antifungal medications. The patient has grown coag- negative Staph from the blood culture. Otherwise, I would also recommend repeat chest x-ray. The most recent chest x-ray done on the 7th of this month was reviewed personally, showed some amount of fluid overload as well. We will continue to monitor. Guarded prognosis. Further recommendations to follow. We will cut down the IV fluids. MMODL / IJN: [id number] /
--- NOTE | 2021-05-17 23:01 | PN ---
PROGRESS NOTE DATE OF SERVICE: 05/17/2021 REASON FOR FOLLOWUP: Abdominal sepsis from ischemic internal hernia. INTERVAL HISTORY: The patient did spike a fever last night of 102.7. The patient has been afebrile since then. The patient overall is feeling better. He is breathing comfortably, though. Denies having any chest pain or shortness of breath or cough. Abdominal pain is currently controlled. No diarrhea. PHYSICAL EXAMINATION: Blood pressure 103/78 with a pulse of 92, temperature 97.8. He is 93% on room air. General description is a middle-aged male up in the room in no distress. Respiratory system: Unlabored breathing, decreased intensity of breath sounds. No wheeze. Heart S1, S2. Regular rate and rhythm. Abdomen soft, mildly distended. No guarding or rigidity. LABS: Hemoglobin is 10.3, white count 10.7, creatinine 1.09. DIAGNOSTIC IMPRESSION AND PLAN: Patient with abdominal sepsis from internal herniation, ischemic, status post partial gastrectomy. Patient is covered with Eraxis and Zosyn; to continue. Repeat cultures will be followed and antibiotic adjusted further if needed. Continue supportive care. MMODL / IJN: [id number] /
[2021-05-18] MEDS: 1: MVI, ADULT NO.4 WITH VIT K 10 ML, TRACE (CONC-1ML/DOSE) 1 ML, SODIUM PHOSPHATE 15 MMO IV SCH ×7 (02:08)
[2021-05-18] MEDS: HYDROmorphone 1 MG/ML 1 ML SYRINGE IVP PRN ×3 (04:37→21:08)
[2021-05-18 06:53] LABS: Basophils % (A) 0 %; Eosinophils # (A) 0.2 k/uL (0-0.7); Eosinophils % (A) 2 %; HCT 32.8 % (39.0-53.0); HGB 10.2 gm/dL (13.0-17.5); Hypochromasia Slight; Lymphocytes # (A) 1.3 k/uL (1.0-4.8); Lymphocytes % (A) 11 %; MCH 28.7 pg (25.0-35.0); MCHC 31.1 g/dL (31.0-37.0); MCV 92.3 fL (80.0-100.0); Mean Platelet Volume 8.3; Monocytes # (A) 0.7 k/uL (0-1.0); Monocytes % (A) 6 %; Neutrophils # (A) 9.4 k/uL (1.3-7.7); Neutrophils % (A) 80 %; Platelet Count 420 k/uL (150-450); RBC 3.55 m/uL (4.30-5.90); RDW 13.8 % (11.5-15.5); WBC 11.8 k/uL (3.8-10.6)
[2021-05-18 07:09] LABS: ALT 31 U/L (4-49); African American GFR (CKD) >90 (>60 ml/min/1.73 sqM); Albumin 2.9 g/dL (3.5-5.0); Albumin/Globulin Ratio 0.8; Anion Gap 8 mmol/L; Blood Urea Nitrogen 21 mg/dL (9-20); Calcium 8.5 mg/dL (8.4-10.2); Carbon Dioxide 23 mmol/L (22-30); Chloride 100 mmol/L (98-107); Globulin 3.6 g/dL; Glucose 91 mg/dL (74-99); Non-African American GFR(CKD) 82 (>60 ml/min/1.73 sqM); Sodium 131 mmol/L (137-145); Total Protein 6.5 g/dL (6.3-8.2)
[2021-05-18 07:11] LABS: Potassium 4.7 mmol/L (3.5-5.1)
[2021-05-18 07:12] LABS: AST 73 U/L (17-59); Alkaline Phosphatase 80 U/L (38-126); Magnesium 1.8 mg/dL (1.6-2.3); Phosphorus 4.4 mg/dL (2.5-4.5)
[2021-05-18] MEDS: ENOXAPARIN 40 MG/0.4 ML SYRINGE SQ SCH (08:05)
[2021-05-18] MEDS: PIPERACILLIN-TAZOBACTAM 3.375 GM in SODIUM CHLORIDE 0.9% 100 ML IVPB SCH ×2 (08:06→17:27)
[2021-05-18] MEDS: ONDANSETRON 4 MG/2 ML VIAL IVP PRN ×2 (08:06→21:09)
[2021-05-18] MEDS: SENNOSIDES 8.6 MG TAB PO SCH ×2 (08:06→21:09)
[2021-05-18] MEDS: cloNIDine HCL 0.2 MG TAB PO SCH ×2 (08:06→21:09)
[2021-05-18] MEDS: PANTOPRAZOLE 40 MG/10 ML VIAL IVP SCH (08:06)
[2021-05-18] MEDS: SIMETHICONE 80 MG CHEWABLE PO SCH ×4 (08:49→21:09)
--- NOTE | 2021-05-18 08:53 | XR ---
EXAMINATION TYPE: XR chest 1V portable DATE OF EXAM: 05/18/2021 Comparison: 05/14/2021 Clinical History: 41-year-old male CHF Findings: left CVC tip in the right atrium. Heart upper limits of normal in size. Mild diffuse interstitial den sity is improving from prior. Improving left basilar opacity and left pleural effusion. Impression: Partial improvement. There is residual mild pulmonary vascular congestion. Improving left pleural eff usion as well.
[2021-05-18] MEDS: IPRATROPIUM-ALBUTEROL 3 ML NEB INHALATION SCH ×4 (09:01→19:45)
--- NOTE | 2021-05-18 13:19 | P.PN ---
Subjective Progress Note Date: 05/18/21 The patient is seen today 05/18/2021 in follow-up on the regular medical floor. He was transferred out of the ICU on 05/16/2021. Status post exploratory laparotomy, gastrectomy and repair of internal hernia secondary to gastric ischemia and necrosis back on 05/10/2021. He is currently resting comfortably in bed. Awake and alert in no acute distress. He is maintaining O2 saturations in the 90s on room air. Chest x-ray is revealing partial improvement. There is residual mild pulmonary vascular congestion. Improvement in the left pleural effusion. Sputum culture is positive for gram-negative bacilli. white count 11.8. Hemoglobin 10.2. Sodium 131. Potassium 4.7. Creatinine 1.12. AST 73. ALT 31. Glucose 91. He is continued on Zosyn, Eraxis, bronchodilators. Lovenox for DVT prophylaxis. Objective - Vital Signs Vital signs: Vital Signs Temp 98.7 F 05/18/21 04:33 Pulse 92 05/18/21 04:33 Resp 26 H 05/18/21 04:33 BP 111/72 05/18/21 04:33 Pulse Ox 99 05/18/21 04:33 Intake & Output 05/17/21 05/18/21 05/18/21 18:59 06:59 18:59 Intake Total 280 Output Total 20 10 Balance -20 270 Weight 100 kg Intake: IV 280 Lactated Ringers 1,000 ml 80 @ 20 mls/hr IV .Q24H [facility] Rx#:[id number] Piperacillin-Tazobactam 3 200 .375 gm In Sodium Chloride 0.9% 100 ml @ 25 mls/hr IVPB Q8HR [facility] Rx# :[id number] Output: Drainage 20 10 Abdomen 20 10 Other: Voiding Method Urinal Urinal Urinal # Voids 2 0 # Bowel Movements 2 0 ABP, PAP, CO, CI - Last Documented Arterial Blood Pressure 146/91 - Exam GENERAL EXAM: Alert, very pleasant, 41-year-old male patient, on room air, comfortable in no apparent distress. HEAD: Normocephalic/atraumatic. EYES: Normal reaction of pupils, equal size. Conjunctiva pink, sclera white. NOSE: Clear with pink turbinates. THROAT: No erythema or exudates. NECK: No masses, no JVD, no thyroid enlargement, no adenopathy. CHEST: No chest wall deformity. Symmetrical expansion. LUNGS: Equal air entry with few scattered rhonchi. CVS: Regular rate and rhythm, normal S1 and S2, no gallops, no murmurs, no rubs ABDOMEN: Soft, nontender. No hepatosplenomegaly, normal bowel sounds, no guarding or rigidity. Abdominal incision is clean dry and intact, covered with surgical dressing, NOAH drain in the right abdomen, with minimal output compressed and draining EXTREMITIES: No clubbing, no edema, no cyanosis, 2+ pulses and upper and lower extremities. MUSCULOSKELETAL: Muscle strength and tone normal. SPINE: No scoliosis or deformity SKIN: No rashes CENTRAL NERVOUS SYSTEM: No focal deficits, tone is normal in all 4 extremities. PSYCHIATRIC: Alert and oriented -3. Appropriate affect. Intact judgment and insight. - Labs CBC & Chem 7: 05/18/21 06:22 05/18/21 06:22 Labs: Abnormal Lab Results - Last 24 Hours (Table) 05/18/21 05/18/21 Range/Units 06:22 06:22 WBC 11.8 H (3.8-10.6) k/uL RBC 3.55 L (4.30-5.90) m/uL Hgb 10.2 L (13.0-17.5) gm/dL Hct 32.8 L (39.0-53.0) % Neutrophils # 9.4 H (1.3-7.7) k/uL Sodium 131 L (137-145) mmol/L BUN 21 H (9-20) mg/dL AST 73 H (17-59) U/L Albumin 2.9 L (3.5-5.0) g/dL Microbiology - Last 24 Hours (Table) 05/17/21 08:35 Gram Stain - Preliminary Sputum Sputum Culture - Preliminary Gram Neg Bacilli 05/15/21 21:49 Blood Culture - Preliminary Blood No Growth after 48 hours 05/15/21 21:49 Blood Culture - Preliminary Blood No Growth after 48 hours 05/15/21 17:37 Blood Culture - Preliminary Blood No Growth after 48 hours 05/11/21 12:00 Blood Culture - Final Blood No Growth after 144 hours Assessment and Plan Assessment: 1 Acute hypoxic respiratory failure related to intra-abdominal sepsis, and patchy infiltrates possibly related to fluid overload, recovered, patient is currently on room air, was mechanically ventilated in the postoperative period, was successfully weaned and extubated on 05/12/2021. Sputum culture from 05/17/2021 positive for gram negatives bacilli, currently on Zosyn 2 Perforated viscus, internal hernia with obstruction, necrotic stomach, status post repair of ventral hernia, partial gastrectomy on 05/10/2021 3 Abdominal pain, vomiting related to the above, resolved 4 History of gastric bypass for obesity 5 Acute kidney injury, recovered 6 History of hypertension 7 Morbid obesity with BMI of 35.6 kg/m Plan: The patient was seen and evaluated X-ray showing improvement, on room air Sputum culture positive for gram-negative bacilli, on Zosyn We'll await final identification, ID service is on the case Increase his activity as tolerated I, the cosigning physician, performed a history & physical examination of the patient. Lungs sounds with few scattered rhonchi. Maintaining good O2 saturations in the 90s on room air. I discussed the assessment and plan of care with my nurse practitioner, Michelle Serrato. I attest to the above note as dictated by her.
--- NOTE | 2021-05-18 15:17 | P.PN ---
Subjective Progress Note Date: 05/18/21 CHIEF COMPLAINT: Abdominal pain HISTORY OF PRESENT ILLNESS: Patient is postop day #8 status post repair of internal hernia and partial gastrectomy for internal hernia with obstruction and necrotic stomach. He was extubated on 05/12/2021. Patient lying comfortably. He is having bowel movements and flatus. Denies any nausea or vomiting. He reports minimal abdominal pain. He did have a fever last night of 102.7 white count increased at 11.8. He is tolerating a full liquid diet. TPN has been weaned off Patient seen and examined with Dr. Olivo PHYSICAL EXAM: VITAL SIGNS: Reviewed. GENERAL: Well-developed in no acute distress. HEENT: No sclera icterus. Moist buccal mucosa. Head is atraumatic, normocephalic. ABDOMEN: Soft. Nondistended. Incision site clean dry and intact. Dressing is saturated with yellowish brownish drainage. Has [address] NEUROLOGIC: Awake but sleepy ASSESSMENT: 1. Internal hernia with obstruction and necrotic stomach status post exploratory laparotomy, repair of internal hernia and partial gastrectomy 2. Pneumoperitoneum PLAN: -Advance diet to low fiber -Continue to monitor fevers and white count -Encouraged patient to increase activity level -Encouraged patient to use incentive spirometer -Continue supportive care -Continue antibiotics per ID -Continue DVT prophylaxis [facility] Deputy Clerk note has been reviewed by physician. Signing provider agrees with the documented findings, assessment, and plan of care. Objective - Vital Signs Vital signs: Vital Signs Temp 98.7 F 05/18/21 04:33 Pulse 92 05/18/21 04:33 Resp 26 H 05/18/21 04:33 BP 111/72 05/18/21 04:33 Pulse Ox 99 05/18/21 04:33 Intake & Output 05/17/21 05/18/21 05/18/21 18:59 06:59 18:59 Intake Total 280 Output Total 20 10 Balance -20 270 Weight 100 kg 100 kg Intake: IV 280 Lactated Ringers 1,000 ml 80 @ 20 mls/hr IV .Q24H KISHA Rx#:[id number] Piperacillin-Tazobactam 3 200 .375 gm In Sodium Chloride 0.9% 100 ml @ 25 mls/hr IVPB Q8HR KISHA Rx# :[id number] Output: Drainage 20 10 Abdomen 20 10 Other: Voiding Method Urinal Urinal Urinal # Voids 2 0 # Bowel Movements 2 0 ABP, PAP, CO, CI - Last Documented Arterial Blood Pressure 146/91 - Labs CBC & Chem 7: 05/18/21 06:22 05/18/21 06:22 Labs: Abnormal Lab Results - Last 24 Hours (Table) 05/18/21 05/18/21 Range/Units 06:22 06:22 WBC 11.8 H (3.8-10.6) k/uL RBC 3.55 L (4.30-5.90) m/uL Hgb 10.2 L (13.0-17.5) gm/dL Hct 32.8 L (39.0-53.0) % Neutrophils # 9.4 H (1.3-7.7) k/uL Sodium 131 L (137-145) mmol/L BUN 21 H (9-20) mg/dL AST 73 H (17-59) U/L Albumin 2.9 L (3.5-5.0) g/dL Microbiology - Last 24 Hours (Table) 05/17/21 08:35 Gram Stain - Preliminary Sputum Sputum Culture - Preliminary Gram Neg Bacilli 05/15/21 21:49 Blood Culture - Preliminary Blood No Growth after 48 hours 05/15/21 21:49 Blood Culture - Preliminary Blood No Growth after 48 hours 05/15/21 17:37 Blood Culture - Preliminary Blood No Growth after 48 hours 05/11/21 12:00 Blood Culture - Final Blood No Growth after 144 hours
[2021-05-18] MEDS: ANIDULAFUNGIN 100 MG in SODIUM CHLORIDE 0.9% 100 ML IVPB SCH (17:27)
[2021-05-18] MEDS: HYDROcodone/APAP 10-325MG 1 EACH TAB PO PRN (18:00)
--- NOTE | 2021-05-18 19:53 | PN ---
PROGRESS NOTE DATE OF SERVICE: 05/18/2021 REASON FOR FOLLOWUP: Abdominal abscess. INTERVAL HISTORY: The patient is afebrile for the last 24 hours. The patient is feeling better. Breathing comfortably. Denies having any chest pain or shortness of breath. Occasional cough. Abdominal pain is currently controlled. No vomiting or diarrhea. PHYSICAL EXAMINATION: Blood pressure 111/62 with a pulse of 92, temperature 98.6. He is 98% on room air. General description is a middle-aged male lying in bed in no distress. Respiratory system: Unlabored breathing, clear to auscultation anteriorly. Heart S1, S2. Regular rate and rhythm. Abdomen soft. Dressing with minimal drainage. Extremities: No edema of the feet. LABS: Hemoglobin is 10.1, hematocrit 9.8, creatinine 1.12. Sputum showed gram-negative. DIAGNOSTIC IMPRESSION AND PLAN: Patient with abdominal sepsis in this patient who did have herniation and ischemic stomach status post partial gastrectomy. The patient is covered with Rocephin and Eraxis. Sputum culture will be followed and antibiotic adjusted further and monitor clinical course closely. MMODL / IJN: [id number] /
[2021-05-18] MEDS: hydroCHLOROthiazide 25 MG TAB PO SCH (21:09)
--- NOTE | 2021-05-19 00:18 | P.PN ---
Subjective Progress Note Date: 05/18/21 This is a 41-year-old male who was recently admitted with bowel perforation with gastric ischemia and necrosis and is being closely monitored. Following closely with surgery and also infectious disease and education officer team. Patient has been weaned from TPN and tolerating diet with reports to passing gas and having bowel movements. Diet is being advanced per surgical services. Encouraged increased activity as tolerated. WBC mildly elevated and patient did have a temp last night. Patient is continued on IV zosyn with infectious disease following closely. Sputum cultures showing gram negative bacilli and awaiting finalized cultures. Patient denies any abdominal pain, shortness of breath, or chest pain. Labs: WBC is 11.8, hemoglobin is 10.2, platelets are 420, sodium is 131, potassium is 4.7, BUN is 21, creatinine is 1.12, calcium is 8.5, magnesium is 1.8 Review of systems: Constitutional: No reports of fatigue, fever, or chills Cardiovascular: No reports of chest pain or palpitations Respiratory: No reports of worsening shortness of breath, reports occasional cough GI: No reports of nausea, vomiting, or diarrhea, reports passing gas and having bowel movements : No reports of dysuria or retention Neurovascular: no reports of weakness or numbness All medications have been reviewed Active Medications Hydrocodone Bitart/Acetaminophen (Hydrocodone/Apap 10-325mg 1 Each Tab) 1 each PO Q6HR PRN PRN Reason: Pain Last Admin: 05/16/21 17:40 Dose: 1 each Documented by: Albuterol/Ipratropium (Ipratropium-Albuterol 3 Ml Neb) 3 ml INHALATION RT-QID [facility] Last Admin: 05/18/21 11:57 Dose: Not Given Documented by: Albuterol/Ipratropium (Ipratropium-Albuterol 3 Ml Neb) 3 ml INHALATION RT-QID PRN PRN Reason: Shortness Of Breath Or Wheezing Clonidine (Clonidine Hcl 0.2 Mg Tab) 0.2 mg PO BID [facility] Last Admin: 05/18/21 08:06 Dose: 0.2 mg Documented by: Enoxaparin Sodium (Enoxaparin 40 Mg/0.4 Ml Syringe) 40 mg SQ DAILY [facility] Last Admin: 05/18/21 08:05 Dose: 40 mg Documented by: Hydrochlorothiazide (Hydrochlorothiazide 25 Mg Tab) 50 mg PO HS [facility] Last Admin: 05/17/21 20:38 Dose: 50 mg Documented by: Hydromorphone HCl (Hydromorphone 1 Mg/Ml 1 Ml Syringe) 1 mg IVP Q3HR PRN PRN Reason: Moderate to Severe Pain Last Admin: 05/18/21 12:19 Dose: 1 mg Documented by: Hydromorphone HCl (Hydromorphone 0.5 Mg/0.5 Ml Syringe) 0.5 mg IVP Q1HR PRN PRN Reason: Breakthrough Pain Last Admin: 05/14/21 18:40 Dose: 0.5 mg Documented by: Lactated Ringer's (Lactated Ringers) 1,000 mls @ 20 mls/hr IV .Q24H [facility] Last Admin: 05/17/21 20:40 Dose: 20 mls/hr Documented by: Piperacillin Sod/Tazobactam (Sod 3.375 gm/ Sodium Chloride) 100 mls @ 25 mls/hr IVPB Q8HR [facility] Last Admin: 05/18/21 08:06 Dose: 25 mls/hr Documented by: Anidulafungin 100 mg/ Sodium (Chloride) 100 mls @ 84 mls/hr IVPB DAILY@1730 [facility] Last Admin: 05/17/21 17:21 Dose: 84 mls/hr Documented by: Ibuprofen (Ibuprofen 400 Mg Tab) 400 mg PO Q6HR PRN PRN Reason: Pain Last Admin: 05/17/21 02:55 Dose: 400 mg Documented by: Miscellaneous Information (Potassium Replacement Protocol 1 Each Misc) 1 each MISCELLANE DAILY PRN; Protocol PRN Reason: Per Protocol Naloxone HCl (Naloxone 0.4 Mg/Ml 1 Ml Vial) 0.2 mg IV Q2M PRN PRN Reason: Opioid Reversal Ondansetron HCl (Ondansetron 4 Mg/2 Ml Vial) 4 mg IVP Q6HR PRN PRN Reason: Nausea And Vomiting Last Admin: 05/18/21 08:06 Dose: 4 mg Documented by: Pantoprazole Sodium (Pantoprazole 40 Mg/10 Ml Vial) 40 mg IVP DAILY [facility] Last Admin: 05/18/21 08:06 Dose: 40 mg Documented by: Senna (Sennosides 8.6 Mg Tab) 8.6 mg PO BID [facility] Last Admin: 05/18/21 08:06 Dose: Not Given Documented by: Simethicone (Simethicone 80 Mg Chewable) 80 mg PO QID [facility] Last Admin: 05/18/21 14:58 Dose: Not Given Documented by: Physical Exam: Gen: This is a 41-year-old male who is awake, alert and oriented 3, well-de veloped, well-nourished. Temp is 98.7 F, pulse is 92, respirations are 26, blood pressure is 111/72, oxygen saturation is 99% on room air HEENT: Head is atraumatic, normocephalic. Pupils equal, round. Sclerae is anicteric. NECK: Supple. No JVD. No lymphadenopathy. No thyromegaly. LUNGS: Breath sounds diminished with some scattered rhonchi noted. No intercostal retractions. HEART: S1, S2 are muffled ABDOMEN: Soft. Bowel sounds are present. No masses. No tenderness. EXTREMITIES: No pedal edema. No calf tenderness. NEUROLOGICAL: Patient is awake, alert and oriented 3, no focal deficits . Assessment: Acute bowel perforation due to gastric ischemia and necrosis, status post exploratory laparotomy, repair of ventral hernia, and partial gastrectomy acute kidney injury secondary to acute tubular necrosis hyperkalemia mild transaminitis elevated lipase level hypertension hyponatremia increased WBC anemia, normocytic history of PTSD history of HTN history of nicotine dependence Full code Plan: Recommend to continue with current medications and follow along closely with surgery. TPN has been weaned and patient diet is being advanced per surgery recommendations. Sputum culture growing gram negative bacilli and maintained on IV zosyn with infectious disease following. WBC mildly elevated today and patient did have fever last night. Chest xray shows partial improvement with kiya e residual mild pulmonary vascular congestion with improving left pleural effusion noted. Patient denies shortness of breath and is 99% on room air. Encourage incentive spirometer. Recommend repeat labs and encouraged increased activity as tolerated. Due to multiple complex medical issues prognosis is guarded. Further recommendations to follow based on the clinical course of the patient. Thank you for this consultation and will continue to follow along and monitor closely. Objective - Vital Signs Vital signs: Vital Signs Temp 98.7 F 05/18/21 04:33 Pulse 92 05/18/21 04:33 Resp 26 H 05/18/21 04:33 BP 111/72 05/18/21 04:33 Pulse Ox 99 05/18/21 04:33 Intake & Output 05/17/21 05/18/21 05/18/21 18:59 06:59 18:59 Intake Total 280 Output Total 20 10 Balance -20 270 Weight 100 kg Intake: IV 280 Lactated Ringers 1,000 ml 80 @ 20 mls/hr IV .Q24H [facility] Rx#:[id number] Piperacillin-Tazobactam 3 200 .375 gm In Sodium Chloride 0.9% 100 ml @ 25 mls/hr IVPB Q8HR [facility] Rx# :[id number] Output: Drainage 20 10 Abdomen 20 10 Other: Voiding Method Urinal Urinal Urinal # Voids 2 0 # Bowel Movements 2 0 ABP, PAP, CO, CI - Last Documented Arterial Blood Pressure 146/91 - Labs CBC & Chem 7: 05/18/21 06:22 05/18/21 06:22 Labs: Abnormal Lab Results - Last 24 Hours (Table) 05/18/21 05/18/21 Range/Units 06:22 06:22 WBC 11.8 H (3.8-10.6) k/uL RBC 3.55 L (4.30-5.90) m/uL Hgb 10.2 L (13.0-17.5) gm/dL Hct 32.8 L (39.0-53.0) % Neutrophils # 9.4 H (1.3-7.7) k/uL Sodium 131 L (137-145) mmol/L BUN 21 H (9-20) mg/dL AST 73 H (17-59) U/L Albumin 2.9 L (3.5-5.0) g/dL Microbiology - Last 24 Hours (Table) 05/17/21 08:35 Gram Stain - Preliminary Sputum Sputum Culture - Preliminary Gram Neg Bacilli 05/15/21 21:49 Blood Culture - Preliminary Blood No Growth after 48 hours 05/15/21 21:49 Blood Culture - Preliminary Blood No Growth after 48 hours 05/15/21 17:37 Blood Culture - Preliminary Blood No Growth after 48 hours 05/11/21 12:00 Blood Culture - Final Blood No Growth after 144 hours
[2021-05-19] MEDS: PIPERACILLIN-TAZOBACTAM 3.375 GM in SODIUM CHLORIDE 0.9% 100 ML IVPB SCH ×3 (00:45→16:52)
[2021-05-19] MEDS: LACTATED RINGERS 1,000 ML IV SCH ×2 (00:54→20:51)
[2021-05-19] MEDS: HYDROmorphone 1 MG/ML 1 ML SYRINGE IVP PRN (01:30)
[2021-05-19] MEDS: HYDROcodone/APAP 10-325MG 1 EACH TAB PO PRN ×3 (04:24→20:50)
[2021-05-19 07:09] LABS: Basophils % (A) 0 %; Eosinophils # (A) 0.1 k/uL (0-0.7); Eosinophils % (A) 2 %; HCT 32.3 % (39.0-53.0); HGB 9.9 gm/dL (13.0-17.5); Hypochromasia Slight; Lymphocytes # (A) 1.1 k/uL (1.0-4.8); Lymphocytes % (A) 13 %; MCH 28.5 pg (25.0-35.0); MCHC 30.6 g/dL (31.0-37.0); MCV 93.3 fL (80.0-100.0); Mean Platelet Volume 8.2; Monocytes # (A) 0.5 k/uL (0-1.0); Monocytes % (A) 6 %; Neutrophils # (A) 6.5 k/uL (1.3-7.7); Neutrophils % (A) 77 %; Platelet Count 537 k/uL (150-450); RBC 3.46 m/uL (4.30-5.90); WBC 8.4 k/uL (3.8-10.6)
[2021-05-19 07:17] LABS: ALT 26 U/L (4-49); AST 49 U/L (17-59); African American GFR (CKD) 77 (>60 ml/min/1.73 sqM); Albumin/Globulin Ratio 0.9; Alkaline Phosphatase 107 U/L (38-126); Anion Gap 6 mmol/L; Blood Urea Nitrogen 19 mg/dL (9-20); Calcium 8.4 mg/dL (8.4-10.2); Carbon Dioxide 27 mmol/L (22-30); Chloride 100 mmol/L (98-107); Globulin 3.5 g/dL; Glucose 145 mg/dL (74-99); Non-African American GFR(CKD) 67 (>60 ml/min/1.73 sqM); Potassium 4.4 mmol/L (3.5-5.1); Sodium 133 mmol/L (137-145); Total Bilirubin 0.6 mg/dL (0.2-1.3); Total Protein 6.5 g/dL (6.3-8.2)
[2021-05-19] MEDS: ENOXAPARIN 40 MG/0.4 ML SYRINGE SQ SCH (08:48)
[2021-05-19] MEDS: IBUPROFEN 400 MG TAB PO PRN (08:49)
[2021-05-19] MEDS: cloNIDine HCL 0.2 MG TAB PO SCH ×2 (08:50→20:50)
[2021-05-19] MEDS: SENNOSIDES 8.6 MG TAB PO SCH ×2 (08:50→20:51)
[2021-05-19] MEDS: PANTOPRAZOLE 40 MG/10 ML VIAL IVP SCH (08:50)
[2021-05-19] MEDS: SIMETHICONE 80 MG CHEWABLE PO SCH ×4 (08:50→20:51)
[2021-05-19] MEDS: IPRATROPIUM-ALBUTEROL 3 ML NEB INHALATION SCH ×4 (09:28→20:25)
--- NOTE | 2021-05-19 13:16 | P.PN ---
Subjective Progress Note Date: 05/19/21 The patient is seen today 05/18/2021 in follow-up on the regular medical floor. He was transferred out of the ICU on 05/16/2021. Status post exploratory laparotomy, gastrectomy and repair of internal hernia secondary to gastric ischemia and necrosis back on 05/10/2021. He is currently resting comfortably in bed. Awake and alert in no acute distress. He is maintaining O2 saturations in the 90s on room air. Chest x-ray is revealing partial improvement. There is residual mild pulmonary vascular congestion. Improvement in the left pleural effusion. Sputum culture is positive for gram-negative bacilli. white count 11.8. Hemoglobin 10.2. Sodium 131. Potassium 4.7. Creatinine 1.12. AST 73. ALT 31. Glucose 91. He is continued on Zosyn, Eraxis, bronchodilators. Lovenox for DVT prophylaxis. The patient is seen today 05/19/2021 in follow-up on the regular medical floor. He is currently resting comfortably in bed. Awake and alert in no acute distress. Maintaining O2 saturation the mid 90s on room air. Afebrile. Hemodynamically stable. Sputum culture positive for gram-negative bacilli. Blood cultures revealed no growth. 8.4. Hemoglobin 9.9. Sodium 133. Potassium 4.4. Creatinine 1.32. Glucose 145. AST 49. ALT 26. He remains on Zosyn and Eraxis. Lovenox for DVT prophylaxis. Continued on bronchodilators. Objective - Vital Signs Vital signs: Vital Signs Temp 98.0 F 05/19/21 11:57 Pulse 92 05/19/21 11:57 Resp 16 05/19/21 11:57 BP 110/76 05/19/21 11:57 Pulse Ox 97 05/19/21 11:57 Intake & Output 05/18/21 05/19/21 05/19/21 18:59 06:59 18:59 Weight 93.6 kg Other: Voiding Method Urinal Urinal Urinal # Voids 2 ABP, PAP, CO, CI - Last Documented Arterial Blood Pressure 146/91 - Exam GENERAL EXAM: Alert, very pleasant, 41-year-old male patient, on room air, comfortable in no apparent distress. HEAD: Normocephalic/atraumatic. EYES: Normal reaction of pupils, equal size. Conjunctiva pink, sclera white. NOSE: Clear with pink turbinates. THROAT: No erythema or exudates. NECK: No masses, no JVD, no thyroid enlargement, no adenopathy. CHEST: No chest wall deformity. Symmetrical expansion. LUNGS: Equal air entry with few scattered rhonchi. CVS: Regular rate and rhythm, normal S1 and S2, no gallops, no murmurs, no rubs ABDOMEN: Soft, nontender. No hepatosplenomegaly, normal bowel sounds, no guarding or rigidity. Abdominal incision is clean dry and intact EXTREMITIES: No clubbing, no edema, no cyanosis, 2+ pulses and upper and lower extremities. MUSCULOSKELETAL: Muscle strength and tone normal. SPINE: No scoliosis or deformity SKIN: No rashes CENTRAL NERVOUS SYSTEM: No focal deficits, tone is normal in all 4 extremities. PSYCHIATRIC: Alert and oriented -3. Appropriate affect. Intact judgment and insight. - Labs CBC & Chem 7: 05/19/21 06:17 05/19/21 06:17 Labs: Abnormal Lab Results - Last 24 Hours (Table) 05/19/21 05/19/21 Range/Units 06:17 06:17 RBC 3.46 L (4.30-5.90) m/uL Hgb 9.9 L (13.0-17.5) gm/dL Hct 32.3 L (39.0-53.0) % MCHC 30.6 L (31.0-37.0) g/dL Plt Count 537 H (150-450) k/uL Sodium 133 L (137-145) mmol/L Creatinine 1.32 H (0.66-1.25) mg/dL Glucose 145 H (74-99) mg/dL Albumin 3.0 L (3.5-5.0) g/dL Microbiology - Last 24 Hours (Table) 05/17/21 08:35 Gram Stain - Preliminary Sputum Sputum Culture - Preliminary Gram Neg Bacilli 05/15/21 21:49 Blood Culture - Preliminary Blood No Growth after 72 hours 05/15/21 21:49 Blood Culture - Preliminary Blood No Growth after 72 hours 05/15/21 17:37 Blood Culture - Preliminary Blood No Growth after 72 hours Assessment and Plan Assessment: 1 Acute hypoxic respiratory failure related to intra-abdominal sepsis, and patchy infiltrates possibly related to fluid overload, recovered, patient is currently on room air, was mechanically ventilated in the postoperative period, was successfully weaned and extubated on 05/12/2021. Sputum culture from 05/17/2021 positive for gram negatives bacilli, currently on Zosyn 2 Perforated viscus, internal hernia with obstruction, necrotic stomach, status post repair of ventral hernia, partial gastrectomy on 05/10/2021 3 Abdominal pain, vomiting related to the above, resolved 4 History of gastric bypass for obesity 5 Acute kidney injury, recovered 6 History of hypertension 7 Morbid obesity with BMI of 35.6 kg/m Plan: The patient was seen and evaluated X-ray showing improvement, on room air Sputum culture positive for gram-negative bacilli, on Zosyn We will see as needed I, the cosigning physician, performed a history & physical examination of the patient. Lungs sounds with few scattered rhonchi. Maintaining good O2 saturations in the 90s on room air. I discussed the assessment and plan of care with my nurse practitioner, Michelle Serrato. I attest to the above note as dictated by her.
[2021-05-19 15:08] VITALS: BMI 33.3
--- NOTE | 2021-05-19 15:15 | P.PN ---
Subjective Progress Note Date: 05/19/21 This is a 41-year-old male who was recently admitted with bowel perforation with gastric ischemia and necrosis and is being closely monitored. 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 Patient has been weaned from TPN and tolerating diet with reports to passing gas and having bowel movements. Diet is being advanced per surgical services. Encouraged increased activity as tolerated. WBC mildly elevated and patient did have a temp last night. Patient is continued on IV zosyn with infectious disease following closely. Sputum cultures showing gram negative bacilli and awaiting finalized cultures. Patient denies any abdominal pain, shortness of breath, or chest pain. 05/19/2021 Patient is seen and evaluated in follow-up today sitting up in the bed extremely anxious and requesting to go home. Patient is admitted to surgical services. Patient is also continued on IV antibiotics in the form of Zosyn along with anidulafungin and infectious disease following. Patient continues with low- grade intermittent temps throughout the night and is afebrile today. Patient reports to tolerating diet and having bowel movements along with passing gas and no reports of nausea or vomiting noted. Sputum culture preliminary showing gram-negative bacilli and pulmonary continues to follow as well. White blood count trending down and 8.4 today. Patient denies any chest pain or shortness of breath. Labs: WBC is 8.4, hemoglobin is 9.9, platelet 05/12/1936, sodium is 133, potassium 4.4, BUN 19, creatinine 1.32, calcium 8.4 Review of systems: Constitutional: No reports of fatigue, fever, or chills Cardiovascular: No reports of chest pain or palpitations Respiratory: No reports of shortness of breath, reports occasional cough GI: No reports of nausea, vomiting, or diarrhea, reports passing gas and having bowel movements, reports tolerating diet : No reports of dysuria or retention Neurovascular: no reports of weakness or numbness All medications have been reviewed Active Medications Hydrocodone Bitart/Acetaminophen (Hydrocodone/Apap 10-325mg 1 Each Tab) 1 each PO Q6HR PRN PRN Reason: Pain Last Admin: 05/19/21 04:24 Dose: 1 each Documented by: Albuterol/Ipratropium (Ipratropium-Albuterol 3 Ml Neb) 3 ml INHALATION RT-QID [facility] Last Admin: 05/19/21 12:34 Dose: Not Given Documented by: Albuterol/Ipratropium (Ipratropium-Albuterol 3 Ml Neb) 3 ml INHALATION RT-QID PRN PRN Reason: Shortness Of Breath Or Wheezing Clonidine (Clonidine Hcl 0.2 Mg Tab) 0.2 mg PO BID [facility] Last Admin: 05/19/21 08:50 Dose: 0.2 mg Documented by: Enoxaparin Sodium (Enoxaparin 40 Mg/0.4 Ml Syringe) 40 mg SQ DAILY [facility] Last Admin: 05/19/21 08:48 Dose: 40 mg Documented by: Hydrochlorothiazide (Hydrochlorothiazide 25 Mg Tab) 50 mg PO HS [facility] Last Admin: 05/18/21 21:09 Dose: 50 mg Documented by: Hydromorphone HCl (Hydromorphone 1 Mg/Ml 1 Ml Syringe) 1 mg IVP Q3HR PRN PRN Reason: Moderate to Severe Pain Last Admin: 05/19/21 01:30 Dose: 1 mg Documented by: Hydromorphone HCl (Hydromorphone 0.5 Mg/0.5 Ml Syringe) 0.5 mg IVP Q1HR PRN PRN Reason: Breakthrough Pain Last Admin: 05/14/21 18:40 Dose: 0.5 mg Documented by: Lactated Ringer's (Lactated Ringers) 1,000 mls @ 20 mls/hr IV .Q24H [facility] Last Admin: 05/19/21 00:54 Dose: Not Given Documented by: Piperacillin Sod/Tazobactam (Sod 3.375 gm/ Sodium Chloride) 100 mls @ 25 mls/hr IVPB Q8HR [facility] Last Admin: 05/19/21 07:37 Dose: 25 mls/hr Documented by: Anidulafungin 100 mg/ Sodium (Chloride) 100 mls @ 84 mls/hr IVPB DAILY@1730 [facility] Last Admin: 05/18/21 17:27 Dose: 84 mls/hr Documented by: Miscellaneous Information (Potassium Replacement Protocol 1 Each Misc) 1 each MISCELLANE DAILY PRN; Protocol PRN Reason: Per Protocol Naloxone HCl (Naloxone 0.4 Mg/Ml 1 Ml Vial) 0.2 mg IV Q2M PRN PRN Reason: Opioid Reversal Ondansetron HCl (Ondansetron 4 Mg/2 Ml Vial) 4 mg IVP Q6HR PRN PRN Reason: Nausea And Vomiting Last Admin: 05/18/21 21:09 Dose: 4 mg Documented by: Pantoprazole Sodium (Pantoprazole 40 Mg/10 Ml Vial) 40 mg IVP DAILY [facility] Last Admin: 05/19/21 08:50 Dose: 40 mg Documented by: Senna (Sennosides 8.6 Mg Tab) 8.6 mg PO BID [facility] Last Admin: 05/19/21 08:50 Dose: 8.6 mg Documented by: Simethicone (Simethicone 80 Mg Chewable) 80 mg PO QID [facility] Last Admin: 05/19/21 12:56 Dose: 80 mg Documented by: Physical Exam: Gen: This is a 41-year-old male who is awake, alert and oriented 3, well- developed, well-nourished. Temp is 98.0 F, pulse is 92, respirations are 16, blood pressure is 110/76, oxygen saturation is 99% on room air HEENT: Head is atraumatic, normocephalic. Pupils equal, round. Sclerae is anicteric. NECK: Supple. No JVD. No lymphadenopathy. No thyromegaly. LUNGS: Breath sounds diminished with some scattered rhonchi noted. No intercostal retractions. HEART: S1, S2 are muffled ABDOMEN: Soft. Bowel sounds are present. No masses. No tenderness. EXTREMITIES: No pedal edema. No calf tenderness. NEUROLOGICAL: Patient is awake, alert and oriented 3, no focal deficits . Assessment: Acute bowel perforation due to gastric ischemia and necrosis, status post exploratory laparotomy, repair of ventral hernia, and partial gastrectomy acute kidney injury secondary to acute tubular necrosis hyperkalemia improved mild transaminitis elevated lipase level hypertension hyponatremia increased WBC, improving anemia, normocytic history of PTSD history of HTN history of nicotine dependence Full code Plan: Recommend to continue with current medications and follow along closely with surgery. Patient is tolerating diet and being advanced again per surgical services. Patient reports to passing gas and having bowel movements. ID following as well and maintainin on IV antibiotics. Preliminary sputum culture showing gram negative bacilli and continues with intermittent low grade temps. WBC has normalized. Patient denies shortness of breath and is 97% on room air. Encourage incentive spirometer. Patient is extremely anxious and would like to go home. Recommend repeat labs and encouraged increased activity as tolerated. Due to multiple complex medical issues prognosis is guarded. Further recommendations to follow based on the clinical course of the patient. Thank you for this consultation and will continue to follow along and monitor closely. Objective - Vital Signs Vital signs: Vital Signs Temp 98.9 F 05/19/21 05:00 Pulse 83 05/19/21 08:52 Resp 18 05/19/21 05:00 BP 127/84 05/19/21 08:52 Pulse Ox 95 05/19/21 05:00 Intake & Output 05/18/21 05/19/21 05/19/21 18:59 06:59 18:59 Weight 93.6 kg Other: Voiding Method Urinal Urinal # Voids 2 ABP, PAP, CO, CI - Last Documented Arterial Blood Pressure 146/91 - Labs CBC & Chem 7: 05/19/21 06:17 05/19/21 06:17 Labs: Abnormal Lab Results - Last 24 Hours (Table) 05/19/21 05/19/21 Range/Units 06:17 06:17 RBC 3.46 L (4.30-5.90) m/uL Hgb 9.9 L (13.0-17.5) gm/dL Hct 32.3 L (39.0-53.0) % MCHC 30.6 L (31.0-37.0) g/dL Plt Count 537 H (150-450) k/uL Sodium 133 L (137-145) mmol/L Creatinine 1.32 H (0.66-1.25) mg/dL Glucose 145 H (74-99) mg/dL Albumin 3.0 L (3.5-5.0) g/dL Microbiology - Last 24 Hours (Table) 05/15/21 21:49 Blood Culture - Preliminary Blood No Growth after 72 hours 05/15/21 21:49 Blood Culture - Preliminary Blood No Growth after 72 hours 05/15/21 17:37 Blood Culture - Preliminary Blood No Growth after 72 hours 05/17/21 08:35 Gram Stain - Preliminary Sputum Sputum Culture - Preliminary Gram Neg Bacilli
--- NOTE | 2021-05-19 16:19 | P.PN ---
Subjective Progress Note Date: 05/19/21 CHIEF COMPLAINT: Abdominal pain HISTORY OF PRESENT ILLNESS: Patient is postop day #9 status post repair of internal hernia and partial gastrectomy for internal hernia with obstruction and necrotic stomach. Patient wants to be discharged. Patient reports his pain is controlled. Denies any nausea vomiting he is tolerating diet. He would like some different food choices. He is having bowel movements and flatus. He reports his nausea improves after eating. He did have a low-grade temp last night of 100.8. His white count has normalized from 11.8-8.4. He did have a slight increase in his creatinine of 1.32 hemoglobin is 9.9. Patient is agreeable to stay 1 more day. But he really wants to be discharged tomorrow. Patient seen and examined with Dr. Olivo PHYSICAL EXAM: VITAL SIGNS: Reviewed. GENERAL: Well-developed in no acute distress. HEENT: No sclera icterus. Moist buccal mucosa. Head is atraumatic, normocephalic. ABDOMEN: Soft. Nondistended. Incision site clean dry and intact. Dressing is saturated with yellowish brownish drainage. Has [address] NEUROLOGIC: Awake but sleepy ASSESSMENT: 1. Internal hernia with obstruction and necrotic stomach status post ex ploratory laparotomy, repair of internal hernia and partial gastrectomy 2. Pneumoperitoneum 3. Acute kidney injury PLAN: -Change diet to regular -Continue to monitor fevers and white count -Discontinue Motrin and hold hydrochlorothiazide due to rising creatinine -Encourage patient to drink plenty of fluids -Switching patient to oral antibiotics per Dr. Olivo. He wants to monitor patient overnight on oral antibiotics since patient is eager for discharge home and possibly may leave AGAINST MEDICAL ADVICE -Encouraged patient to increase activity level -Encouraged patient to use incentive spirometer -Continue supportive care -Continue DVT prophylaxis Lovenox -Plan for discharge tomorrow Physician Cloth Burler note has been reviewed by physician. Signing provider agrees with the documented findings, assessment, and plan of care. Objective - Vital Signs Vital signs: Vital Signs Temp 98.0 F 05/19/21 11:57 Pulse 92 05/19/21 11:57 Resp 16 05/19/21 11:57 BP 110/76 05/19/21 11:57 Pulse Ox 97 05/19/21 11:57 Intake & Output 01/03/2905/19/21 05/19/21 18:59 06:59 18:59 Weight 93.6 kg 93.6 kg Other: Voiding Method Urinal Urinal Urinal # Voids 2 ABP, PAP, CO, CI - Last Documented Arterial Blood Pressure 146/91 - Labs CBC & Chem 7: 05/19/21 06:17 05/19/21 06:17 Labs: Abnormal Lab Results - Last 24 Hours (Table) 05/19/21 05/19/21 Range/Units 06:17 06:17 RBC 3.46 L (4.30-5.90) m/uL Hgb 9.9 L (13.0-17.5) gm/dL Hct 32.3 L (39.0-53.0) % MCHC 30.6 L (31.0-37.0) g/dL Plt Count 537 H (150-450) k/uL Sodium 133 L (137-145) mmol/L Creatinine 1.32 H (0.66-1.25) mg/dL Glucose 145 H (74-99) mg/dL Albumin 3.0 L (3.5-5.0) g/dL Microbiology - Last 24 Hours (Table) 05/17/21 08:35 Gram Stain - Preliminary Sputum Sputum Culture - Preliminary Gram Neg Bacilli 05/15/21 21:49 Blood Culture - Preliminary Blood No Growth after 72 hours 05/15/21 21:49 Blood Culture - Preliminary Blood No Growth after 72 hours 05/15/21 17:37 Blood Culture - Preliminary Blood No Growth after 72 hours
[2021-05-19] MEDS: FLUCONAZOLE 100 MG TAB PO SCH (16:53)
[2021-05-19] MEDS: AMOXIC-POT CLAV 875-125MG 1 EACH TAB PO SCH (20:50)
--- NOTE | 2021-05-19 23:23 | PN ---
PROGRESS NOTE DATE OF SERVICE: 05/19/2021 REASON FOR FOLLOWUP: Secondary peritonitis and Gram-negative pneumonia. INTERVAL HISTORY: The patient is afebrile. The patient has been breathing comfortably. The patient denies having any chest pain or shortness of breath or cough. Abdominal pain is currently controlled. No diarrhea. PHYSICAL EXAMINATION: Blood pressure 132/78 with a pulse of 68, temperature . He is 97% on room air. General description is a middle-aged male lying in bed in no distress. Respiratory system: Unlabored breathing, decreased intensity of breath sounds. No wheeze. Heart S1, S2. Regular rate and rhythm. Abdomen soft, no tenderness. LABS: His white count has normalized. Sputum with Gram-negative with ID and sensitivities pending. DIAGNOSTIC IMPRESSION AND PLAN: Patient with intraabdominal infection ischemic now with possible Gram- negative pneumonia. Patient was supposed to be on Zosyn and we did request to continue his IV antibiotic until his sputum culture finalized; however, the surgical team has changed the antibiotic to Augmentin. ID Service will sign off, as antibiotics will be managed by the surgical team. MMODL / IJN: [id number] /
[2021-05-20 04:23] VITALS: RESP 16
[2021-05-20 06:36] LABS: HCT 29.2 % (39.0-53.0); HGB 9.5 gm/dL (13.0-17.5); MCH 28.9 pg (25.0-35.0); MCHC 32.4 g/dL (31.0-37.0); MCV 89.3 fL (80.0-100.0); Mean Platelet Volume 8.5; Platelet Count 719 k/uL (150-450); RBC 3.27 m/uL (4.30-5.90); RDW 13.9 % (11.5-15.5); WBC 10.2 k/uL (3.8-10.6)
[2021-05-20 07:03] LABS: Anisocytosis (M) Present; Hypochromasia (M) Present; Lymphocytes # (M) 2.35 k/uL (1.0-4.8); Monocytes # (M) 0.92 k/uL (0-1.0); Neutrophils # (M) 6.83 k/uL (1.3-7.7); Neutrophils % (M) 67 %; Nucleated Red Blood Cells 0 /100 WBC (0-0); Polychromasia Present; Total Cells Counted 100
[2021-05-20] MEDS: IPRATROPIUM-ALBUTEROL 3 ML NEB INHALATION SCH ×2 (07:56→11:19)
[2021-05-20] MEDS: cloNIDine HCL 0.2 MG TAB PO SCH (08:25)
[2021-05-20] MEDS: AMOXIC-POT CLAV 875-125MG 1 EACH TAB PO SCH (08:25)
[2021-05-20] MEDS: SENNOSIDES 8.6 MG TAB PO SCH (08:25)
[2021-05-20] MEDS: ENOXAPARIN 40 MG/0.4 ML SYRINGE SQ SCH (08:25)
[2021-05-20] MEDS: FLUCONAZOLE 100 MG TAB PO SCH (08:25)
[2021-05-20] MEDS: SIMETHICONE 80 MG CHEWABLE PO SCH ×2 (08:25→13:21)
[2021-05-20] MEDS: PANTOPRAZOLE 40 MG/10 ML VIAL IVP SCH (08:25)
[2021-05-20] MEDS: HYDROcodone/APAP 10-325MG 1 EACH TAB PO PRN (08:38)
[2021-05-20 12:20] LABS: African American GFR (CKD) 105.3 (60.0-200.0); Anion Gap 11.5 mmol/L (10.00-18.00); BUN/Creat Ratio 15.2 Ratio (12.00-20.00); Blood Urea Nitrogen 15.5 mg/dL (9.0-27.0); Calcium 8.4 mg/dL (8.7-10.3); Carbon Dioxide 23.8 mmol/L (20.0-27.5); Non-African American GFR(CKD) 90.9 (60.0-200.0); Potassium 4.8 mmol/L (3.5-5.5)
[2021-05-20 12:29] VITALS: BP 107/70; PULSE 91; TEMP 98.3
--- NOTE | 2021-05-20 13:21 | P.DS ---
Providers Date of admission: 05/10/21 15:17 Expected date of discharge: 05/20/21 Attending physician: Kaz Olivo Consults: 05/10/21 15:20 Consult Physician Stat Consulting Provider: Josh Walker Consult Reason/Comments: icu patient Do you want consulting provider notified?: Already Contacted 05/10/21 18:40 Consult Physician Routine Consulting Provider: Alexandra Gerard Consult Reason/Comments: Medical management Do you want consulting provider notified?: Yes Consult Physician Routine Consulting Provider: Dee Ewing Consult Reason/Comments: Gastric necrosis, sepsis Do you want consulting provider notified?: Yes Primary care physician: Stated None Hospital Course: Discharge diagnoses 1. Internal hernia with obstruction and necrotic stomach status post explo ratory laparotomy, repair of internal hernia and partial gastrectomy 2. Pneumoperitoneum 3. Acute kidney injury resolved 4. Sputum culture positive with Klebsiella pneumonia Hospital course This is a 41-year-old male who has a several day history of severe abdominal pain. He states that he has a previous history of gastric bypass and had a similar complaints of pain when he had an internal hernia. Patient had CAT scan shows evidence of bowel perforation and possible internal hernia. Patient is status post exploratory laparotomy, repair of internal hernia and partial gastrectomy for internal hernia with obstruction and necrotic stomach on 05/10/2021. Patient required to be placed in the ICU and was intubated. Patient was successfully extubated. He tolerated advancement of diet. Patient seen by multiple consultants during this admission. He will be discharged home with oral antibiotics. Patient was informed that it was recommended that he stays in [place] until he can follow up with Dr. Olivo in the office. Also recommended to patient remains in the hospital for a little longer. However patient was adamant about being discharged and returning home to [place]. Patient will need follow-up with his enrollment management director and PCP within the week. Patient has been educated that he needs to make frequent stops and to ambulate to prevent blood clots. Patient is stable for discharge. He is afebrile. Tolerating diet. His pain is controlled. He is up and ambulating. He is having bowel movements. Please refer to chart for any further details. Physician Adjunct Psychology Faculty Member note has been reviewed by physician. Signing provider agrees with the documented findings, assessment, and plan of care. Patient Condition at Discharge: Stable Plan - Discharge Summary New Discharge Prescriptions: New Levofloxacin [Levaquin] 500 mg PO DAILY 10 Days #10 tab metroNIDAZOLE [Flagyl] 500 mg PO TID #30 tab HYDROcodone/APAP 7.5-325MG [Seneca 7.5-325] 1 tab PO Q8HR PRN 3 Days #9 tab PRN Reason: Pain Discontinued Meloxicam [Mobic] 15 mg PO HS No Action hydrOXYzine pamoate [Vistaril] 50 mg PO BID Acetaminophen [Tylenol] 650 mg PO BID PRN PRN Reason: Fever And/ Or Pain cloNIDine HCL [Catapres] 0.2 mg PO BID Sucralfate [Carafate] 1 gm PO AC-TID Mag Hydrox/Al Hydrox/Simeth [Maalox] 15 ml PO TID PRN PRN Reason: Gi Upset Famotidine [Pepcid] 20 mg PO BID #28 tablet Sertraline [Zoloft] 100 mg PO DAILY traZODone HCL [Desyrel] 100 mg PO HS hydroCHLOROthiazide 50 mg PO HS Ondansetron HCl [Zofran] 4 mg PO Q8H PRN PRN Reason: Nausea And Vomiting Discharge Medication List Famotidine [Pepcid] 20 mg PO BID #28 tablet 05/09/21 [Rx] Acetaminophen [Tylenol] 650 mg PO BID PRN 05/10/21 [History] Mag Hydrox/Al Hydrox/Simeth [Maalox] 15 ml PO TID PRN 05/10/21 [History] Ondansetron HCl [Zofran] 4 mg PO Q8H PRN 05/10/21 [History] Sertraline [Zoloft] 100 mg PO DAILY 05/10/21 [History] Sucralfate [Carafate] 1 gm PO AC-TID 05/10/21 [History] cloNIDine HCL [Catapres] 0.2 mg PO BID 05/10/21 [History] hydrOXYzine pamoate [Vistaril] 50 mg PO BID 05/10/21 [History] hydroCHLOROthiazide 50 mg PO HS 05/10/21 [History] traZODone HCL [Desyrel] 100 mg PO HS 05/10/21 [History] HYDROcodone/APAP 7.5-325MG [Seneca 7.5-325] 1 tab PO Q8HR PRN 3 Days #9 tab 05/20/21 [Rx] Levofloxacin [Levaquin] 500 mg PO DAILY 10 Days #10 tab 05/20/21 [Rx] metroNIDAZOLE [Flagyl] 500 mg PO TID #30 tab 05/20/21 [Rx] Follow up Appointment(s)/Referral(s): None,Stated [Primary Care Provider] - 1-2 days Kaz Olivo MD [STAFF PHYSICIAN] - 1 Week Activity/Diet/Wound Care/Special Instructions: No driving while taking Seneca No lifting over 10 pounds You may shower. No soaking or tub baths for 2 weeks Very light activity until you are reevaluated at your follow up appointment with your surgeon Patient is to follow-up with his enrollment management director within 1 week Patient to follow up with his PCP within 1 week Patient educated to ambulate frequently to prevent blood clots Discharge Disposition: HOME SELF-CARE
--- NOTE | 2021-05-21 09:15 | P.PN ---
Subjective Progress Note Date: 05/20/21 This is a 41-year-old male who was recently admitted with bowel perforation with gastric ischemia and necrosis and is being closely monitored. Following closely with surgery and also infectious disease and credit and collections analyst team. Patient has been weaned from TPN and tolerating diet with reports to passing gas and having bowel movements. Diet is being advanced per surgical services. Encouraged increased activity as tolerated. WBC mildly elevated and patient did have a temp last night. Patient is continued on IV zosyn with infectious disease following closely. Sputum cultures showing gram negative bacilli and awaiting finalized cultures. Patient denies any abdominal pain, shortness of breath, or chest pain. 05/19/2021 Patient is seen and evaluated in follow-up today sitting up in the bed extremely anxious and requesting to go home. Patient is admitted to surgical services. Patient is also continued on IV antibiotics in the form of Zosyn along with anidulafungin and infectious disease following. Patient continues with low- grade intermittent temps throughout the night and is afebrile today. Patient reports to tolerating diet and having bowel movements along with passing gas and no reports of nausea or vomiting noted. Sputum culture preliminary showing gram-negative bacilli and pulmonary continues to follow as well. White blood count trending down and 8.4 today. Patient denies any chest pain or shortness of breath. 05/20/2021 Patient is seen this morning and continues to be closely monitored with multiple medical consultations following. Patient admitted under surgical services and has transitioned antibiotics to oral while awaiting for sputum cultures to finalized. Patient was maintained on IV antibiotics with infectious disease following and recommending waiting to finalized cultures. Patient extremely anxious to go home as he lives in [place] and would like to get back home. Patient is tolerating regular diet with no reports of nausea or vomiting noted. Patient is passing gas and having bowel movements. Denies any worsening abdominal discomfort. Surgical site appears dry and intact. Labs: WBC is 10.2, hemoglobin is 9.5, platelets are 719, sodium is 138, potassium 4.8, BUN 15.5, creatinine 1.0, calcium 8.4. Review of systems: Constitutional: No reports of fatigue, fever, or chills Cardiovascular: No reports of chest pain or palpitations Respiratory: No reports of shortness of breath, reports occasional cough GI: No reports of nausea, vomiting, or diarrhea, reports passing gas and having bowel movements, reports tolerating diet : No reports of dysuria or retention Neurovascular: no reports of weakness or numbness All medications have been reviewed Physical Exam: Gen: This is a 41-year-old male who is awake, alert and oriented 3, well-de veloped, well-nourished. Temp is 98.7 F, pulse is 84, respirations are 16, blood pressure is 109/70, oxygen saturation is 99% on room air HEENT: Head is atraumatic, normocephalic. Pupils equal, round. Sclerae is anicteric. NECK: Supple. No JVD. No lymphadenopathy. No thyromegaly. LUNGS: Breath sounds diminished with some scattered rhonchi noted. No intercostal retractions. HEART: S1, S2 are muffled ABDOMEN: Soft. Bowel sounds are present. No masses. No tenderness. EXTREMITIES: No pedal edema. No calf tenderness. NEUROLOGICAL: Patient is awake, alert and oriented 3, no focal deficits . Assessment: Acute bowel perforation due to gastric ischemia and necrosis, status post exploratory laparotomy, repair of ventral hernia, and partial gastrectomy acute kidney injury secondary to acute tubular necrosis, improving Klebsiella pneumonia in the sputum hyperkalemia improved mild transaminitis elevated lipase level hypertension hyponatremia increased WBC, improving anemia, normocytic history of PTSD history of HTN history of nicotine dependence Full code Plan: Recommend to continue with current medications and follow along closely with surgery. Patient is tolerating regulea diet. Patient reports to passing gas and having bowel movements. ID following as well and maintained on IV antibiotics. sputum culture showing with klebsiella pneumonia. Patient was transitioned oral antibiotics per surgical services. WBC has normalized. Patient denies shortness of breath and is 99% on room air. Encourage incentive spirometer. Patient is extremely anxious and would like to go home. Patient states he lives in [place] and needs to get back there. A lengthy discussion with the patient about traveling at high risk for developing a DVT and encourage the patient to take multiple breaks during his drive back. Patient verbalized understanding. Due to multiple complex medical issues prognosis is guarded. Further recommendations to follow based on the clinical course of the patient. Thank you for this consultation and will continue to follow along and monitor closely. Patient is being discharged today. Objective - Vital Signs Vital signs: Vital Signs Temp 98.3 F 05/20/21 11:47 Pulse 91 05/20/21 11:47 Resp 16 05/20/21 11:47 BP 107/70 05/20/21 11:47 Pulse Ox 99 05/20/21 11:47 ABP, PAP, CO, CI - Last Documented Arterial Blood Pressure 146/91 - Labs CBC & Chem 7: 05/20/21 05:29 05/20/21 05:29 Labs: Abnormal Lab Results - Last 24 Hours (Table) 05/20/21 Range/Units 05:29 Calcium 8.4 L (8.7-10.3) mg/dL Microbiology - Last 24 Hours (Table) 05/15/21 21:49 Blood Culture - Preliminary Blood No Growth after 120 hours 05/15/21 21:49 Blood Culture - Preliminary Blood No Growth after 120 hours 05/15/21 17:37 Blood Culture - Preliminary Blood No Growth after 120 hours 05/17/21 08:35 Gram Stain - Final Sputum Sputum Culture - Final Klebsiella pneumoniae
== END 2021-05-20 14:38 | disposition home or self-care (01) | DRG 853 ==
LOC: EC 10:32 → 2SICU 15:17 → 5NMEDONC 05-16 13:42
PROVIDERS: ADMIT Surgery; ATTEND Surgery
PROC: 0WQF0ZZ Repair Abdominal Wall, Open Approach (ICD-10-PCS; 2021-05-10)
PROC: 0DB60ZZ Excision of Stomach, Open Approach (ICD-10-PCS; principal; 2021-05-10 14:30)
PROC: 02HV33Z Insertion of Infusion Device into Superior Vena Cava, Percutaneous Approach (ICD-10-PCS; 2021-05-11)
PROC: 03HY32Z Insertion of Monitoring Device into Upper Artery, Percutaneous Approach (ICD-10-PCS; 2021-05-11)
DX: A41.9 Sepsis, unspecified organism (principal); J96.01 Acute respiratory failure with hypoxia; N17.0 Acute kidney failure with tubular necrosis; K65.1 Peritoneal abscess; J15.0 Pneumonia due to Klebsiella pneumoniae; K43.6 Other and unspecified ventral hernia with obstruction, without gangrene; N17.9 Acute kidney failure, unspecified; E87.1 Hypo-osmolality and hyponatremia; E87.2 Acidosis; D64.9 Anemia, unspecified; K31.89 Other diseases of stomach and duodenum; Z98.84 Bariatric surgery status; E66.01 Morbid (severe) obesity due to excess calories; E87.5 Hyperkalemia; I10 Essential (primary) hypertension; E87.70 Fluid overload, unspecified; Z20.822 Contact with and (suspected) exposure to COVID-19; F43.10 Post-traumatic stress disorder, unspecified; Z68.35 Body mass index [BMI] 35.0-35.9, adult; Z79.899 Other long term (current) drug therapy; Z87.891 Personal history of nicotine dependence
CPT/HCPCS: 36415; 36600; 71045; 71046; 74018; 74176; 80048; 80053; 81001; 81003; 82150; 82330; 82805; 83605; 83690; 83735; 84100; 84132; 84145; 84478; 84484; 85025; 85610; 85730; 86140; 87040; 87070; 87077; 87186; 87205; 87502; 87635; 88307; 93005; 94002; 94003; 94640; 94760; 96361; 96365; 96372; 96374; 96375; 96376; 99284; 99285